=== PATIENT | male | born 1990 | race Caucasian/White ===

== ENCOUNTER 2023-12-07 03:18 | Inpatient (IN) | payer SELFPAY ==
[2023-12-07] VITALS (8 sets, daily range): BP systolic 138–188; BP diastolic 76–108; PULSE 63–95; RESP 14–20; TEMP 36.1–37.4; O2SAT 97–99; BMI 20.3
[2023-12-07 03:27] LABS: Glucose Point of Care 75 mg/dL (70-110)
[2023-12-07 03:51] LABS: Basophils # 0.1 10^3/uL (0.0-0.1); Basophils % 0.6 %; Eosinophils # 0.1 10^3/uL (0.0-0.8); Eosinophils % 0.7 %; Hematocrit 30.1 % (37-53); Lymphocytes # 1.2 10^3/uL (0.8-4.8); Lymphocytes % 10.8 %; Mean Corpuscular HGB Conc 32.2 g/dL (30-55); Mean Corpuscular Hemoglobin 27.6 pg (27-33); Mean Corpuscular Volume 85.5 fl (82-101); Mean Platelet Volume 10.6 fL (7.4-10.4); Monocytes # 0.5 10^3/uL (0.2-0.9); Monocytes % 4.9 %; Neutrophils # 8.78 10^3/uL (1.8-7.7); Neutrophils % 82.7 %; Nucleated Red Blood Cells % 0 %; Platelet Count 244 10^3/cmm (157-399); Red Blood Count 3.52 10^6/uL (3.85-5.65); Red Cell Distribution Width 13.3 % (12.1-15.1); White Blood Count 10.61 10^3/uL (3.29-11.43)
[2023-12-07 04:03] LABS: Ketone (Acetest) Serum Negative (Negative)
[2023-12-07 04:08] LABS: Alanine Aminotransferase 16 U/L (0-41); Albumin Level 4.4 g/dL (3.5-5.2); Alkaline Phosphatase 100 U/L (40-130); Anion Gap 19.4 (5-19); Aspartate Amino Transferase 25 U/L (0-40); Blood Urea Nitrogen 61 mg/dL (6-20); Carbon Dioxide 21 mmol/L (22-29); Chloride 105 mmol/L (98-107); Creatinine Clr Calc Pharmacy 11.1876; Globulin 3.1 g/dL (1.3-4.6); Glomerular Filtration Rate 6.2 mL/min (90-130); Glucose 57 mg/dL (65-115); Osmolality Calculated 307 mOsm/kg (285-295); Potassium 4.4 mmol/L (3.5-5.1); Sodium 141 mmol/L (136-145); Total Bilirubin 0.2 mg/dL (0.15-1.2); Total Protein 7.5 g/dL (6.6-8.7)
[2023-12-07 04:34] LABS: Glucose Point of Care 72 mg/dL (70-110)
[2023-12-07 05:06] LABS: Estmated Average Glucose 206; Hemoglobin A1C 8.8 % (4.0-6.0)
--- NOTE | 2023-12-07 05:28 | ED_ITS ---
HPI - General Adult 2 General: Stated complaint: Hypoglycemic Time Seen by Provider: 12/07/23 03:19 History of Present Illness: 33-year-old male presents emergency depa rtment via EMS personnel. EMS personnel state that the patient's significant other called them because he was unresponsive and she could not get him to respond to her verbally. EMS personnel state that upon arrival he was hypoglycemia with a blood glucose of 30 he has a type I diabetic. EMS personnel stated they provided him oral glucose and had an improvement of a blood glucose level of 50 at the time of transport. Upon arrival to the emergency department patient does look pale and ill- appearing he is responsive to verbal commands. The patient was provided IV access and an D10 was provided to the patient. As well as p.o. intake. The patient states he is new to the area and does not have a primary care provider. Associated symptoms: Deny chest pain, dyspnea or palpitations Review of Systems 2 General: Reports: 10 or more systems reviewed and unremarkable except in HPI and below Card: Denies: chest pain or palpitations Resp: Denies: dyspnea Endo: Reports: polyuria, polydipsia and tired all the time Physical Exam 2 Narrative: EXAM NARRATIVE: Constitutional: the patient appears well nourished and with normal development. Vital signs reviewed as documented. HENMT: Normocephalic, atraumatic. External ears normal appearance without drainage. Nose without drainage, normal appearance. Mucus membranes moist. Neck is supple, No jugular venous distension, trachea is midline, no appreciable carotid bruits. No lymphadenopathy. No meningeal signs. Flexion, extension and lateral rotation is without pain. Eyes: Pupils are equal, round, reactive to light and accommodation. No scleral icterus. Extra-ocular movement are intact. Thorax is symmetrical and with equal rise and fall with respirations. Resp: Lungs are clear to auscultation. No wheezes, rales, crackles or ronchi at present. Cardio: Regular rate and rhythm. Positive S1, S2. No appreciable murmurs, rubs or gallops. GI: Abdominal exam reveals normal bowel sounds to all quadrants. No organomegaly. No obvious palpable masses noted. No hepatomegally appreciated. Soft, non-tender to palpation. Extremity: Extremities are non-edematous and both femoral and pedal pulses are 2+ and equal bilaterally. Moves all extremities well, sensation in all extremities. Neuro: Alert and oriented x4, person, place, time and situation. Cranial nerves II through XII are grossly intact, there is no focal neurological deficits that I can appreciate at present. Sensation intact to all extremities. 2-point discrimination intact. Light touch intact to all extremities. Motor strength in the upper and lower extremities are equal and bilateral 5/5. Psych: Cooperative, calm, normal thought process, appropriate judgment. Skin: No lesions, rashes. No gross abnormalities noted. Back: Symmetrical, no obvious deformity, No CVA tenderness Course 2 Vital Signs: Vital signs: Vital Signs Temperature 98.3 F 12/07/23 03:18 Pulse Rate 92 12/07/23 03:18 Respiratory Rate 20 H 12/07/23 03:18 Blood Pressure 188/108 12/07/23 03:18 Pulse Oximetry 99 12/07/23 03:18 [facility] - General Adult Medical Decision Making Physical exam completed and documented I did repeat a goulx-[id number] glucose and the patient's blood glucose was 75. CBC was obtained and demonstrated hemoglobin 9.7. Patient's GFR is 6.2 creatinine 9.8 a BUN of 61 consistent with acute renal failure. I discussed the laboratory findings with the patient and he states he has never been advised that he had any difficulties with his kidneys. He states he still makes urine but is very concerned and states that the last time he was evaluated was 3 years ago but he is unaware of anyone ever telling him that he had kidney difficulties. Differential Diagnosis Uncontrolled diabetes, acute renal failure secondary to uncontrolled hypertension and diabetes mellitus. Diabetes mellitus with hypoglycemia Lab Data I reviewed the patient's lab results. 12/07/23 03:45 12/07/23 03:45 Laboratory Results WBC 10.61 10^3/uL (3.29-11.43) 12/07/23 03:45 RBC 3.52 10^6/uL (3.85-5.65) L 12/07/23 03:45 Hgb 9.70 g/dL (11.27-16.99) L 12/07/23 03:45 Hct 30.1 % (37-53) L 12/07/23 03:45 MCV 85.5 fl (82-101) 12/07/23 03:45 MCH 27.6 pg (27-33) 12/07/23 03:45 MCHC 32.2 g/dL (30-55) 12/07/23 03:45 RDW 13.3 % (12.1-15.1) 12/07/23 03:45 Plt Count 244 10^3/cmm (157-399) 12/07/23 03:45 MPV 10.6 fL (7.4-10.4) H 12/07/23 03:45 Neut % (Auto) 82.7 % 12/07/23 03:45 Lymph % (Auto) 10.8 % 12/07/23 03:45 [place] % (Auto) 4.9 % 12/07/23 03:45 Eos % (Auto) 0.7 % 12/07/23 03:45 Baso % (Auto) 0.6 % 12/07/23 03:45 Neut # (Auto) 8.78 10^3/uL (1.8-7.7) H 12/07/23 03:45 Lymph # (Auto) 1.2 10^3/uL (0.8-4.8) 12/07/23 03:45 [place] # (Auto) 0.5 10^3/uL (0.2-0.9) 12/07/23 03:45 Eos # (Auto) 0.1 10^3/uL (0.0-0.8) 12/07/23 03:45 Baso # (Auto) 0.1 10^3/uL (0.0-0.1) 12/07/23 03:45 Nucleated RBC % (auto) 0 % 12/07/23 03:45 Nucleated RBCs # 0.0 /100WBC 12/07/23 03:45 Sodium 141 mmol/L (136-145) 12/07/23 03:45 Potassium 4.4 mmol/L (3.5-5.1) 12/07/23 03:45 Chloride 105 mmol/L (98-107) 12/07/23 03:45 Carbon Dioxide 21 mmol/L (22-29) L 12/07/23 03:45 Anion Gap 19.4 (5-19) H 12/07/23 03:45 BUN 61 mg/dL (6-20) H 12/07/23 03:45 Creatinine 9.8 mg/dL (0.7-1.2) H* 12/07/23 03:45 GFR Calculation 6.2 mL/min (90-130) L 12/07/23 03:45 Glucose 57 mg/dL (65-115) L 12/07/23 03:45 POC Glucose 72 mg/dL (70-110) 12/07/23 04:31 Estimat Average Glucose 206 12/07/23 03:45 Hemoglobin A1c 8.8 % (4.0-6.0) H 12/07/23 03:45 Calculated Osmolality 307 mOsm/kg (285-295) H 12/07/23 03:45 Calcium 8.0 mg/dL (8.5-10.5) L 12/07/23 03:45 Total Bilirubin 0.2 mg/dL (0.15-1.2) 12/07/23 03:45 AST 25 U/L (0-40) 12/07/23 03:45 ALT 16 U/L (0-41) 12/07/23 03:45 Alkaline Phosphatase 100 U/L (40-130) 12/07/23 03:45 Total Protein 7.5 g/dL (6.6-8.7) 12/07/23 03:45 Albumin 4.4 g/dL (3.5-5.2) 12/07/23 03:45 Globulin 3.1 g/dL (1.3-4.6) 12/07/23 03:45 Serum Ketones Negative (Negative) 12/07/23 03:45 No radiology studies performed this visit Discharge Plan Discharge Patient Disposition: Admitted As Inpatient Admit Provider: Marine Pal Clinical Impression: Acute alteration in mental status, Diabetes mellitus due to underlying condition with hypoglycemia, Acute renal failure, Hypertension, uncontrolled Coding Level of Care Code ED [employer] Principal for Joaquin Jones
[2023-12-07] MEDS: hyDRALAzine 20 mg/mL INJ 1 mL 10 MG IVP (05:35)
--- NOTE | 2023-12-07 05:51 | PC.NURSE ---
Patient states he takes Novolin N 26 units at bedtime as well as sliding scale at home. Patient states he does not take any other home medications.
--- NOTE | 2023-12-07 06:11 | P.HP_ITS ---
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 Patient is denying chest pain, shortness of breath, fever, endorses for marijuana. No history of HIV or hepatitis Hemoglobin A1c is 8.8, anemia hemoglobin is 9, creatinine 9.8, potassium 4.4, anion gap 19.[address] abdomen pelvis without contrast and consulted nephro requested drug screen, urine analysis He is hypertensive I will give him amlodipine and hydralazine Review of Systems 2 Const: Denies: fever(s) Eyes: Denies: change in vision ENMT: Denies: throat pain Card: Denies: chest pain Resp: Denies: dyspnea GI: Denies: abdominal pain : Denies: flank pain Musc: Denies: neck pain Medications/Allergies Home Medications Medication Instructions Recorded Confirmed Last Taken Type Unable to Assess 12/07/23 12/07/23 Unknown History Allergies Allergy/AdvReac Type Severity Reaction Status Date / Time No Known Allergies Allergy Verified 12/07/23 05:50 PFSH Acute 2 PFSH: Medical History Type 1 diabetes Social History Substance/Drug Use: current Substance/Drug use frequency: few times a week Substance/Drug use type: Marijuana Vitals/I&O/Wt Last Vital Signs Temp 96.9 F L 12/07/23 06:04 Pulse 65 12/07/23 06:04 Resp 17 12/07/23 06:04 BP 164/83 12/07/23 06:04 Pulse Ox 98 12/07/23 06:04 O2 Del Method Room Air 12/07/23 05:41 Weight last 48 hrs Weight 74.253 kg Weight 68.039 kg Physical Exam 2 Narrative: Pale complexion GCS 15 Awake and alert Nonfocal neuroexam Hypertensive S1, S2 Currently on room air Pleasant cooperative Spouse at bedside No active emesis No encephalopathy Data 12/07/23 03:45 12/07/23 03:45 A&P Assessment and plan (1) Hypertension, uncontrolled: (2) Diabetes mellitus due to underlying condition with hypoglycemia: Qualifiers: Diabetes mellitus complication detail: without coma Diabetes mellitus skilled nursing insulin use: unspecified buttermaker continuous churn insulin use status Qualified Code(s): E08.649 - Diabetes mellitus due to underlying condition with hypoglycemia without coma (3) Acute renal failure: Qualifiers: Acute renal failure type: unspecified Qualified Code(s): N17.9 - Acute kidney failure, unspecified (4) Acute alteration in mental status: Plan Metabolic encephalopathy related to hypoglycemia: Resolved Hypoglycemia with underlying type 1 diabetes: Most likely happened due to worsening of kidney function without changing his Novolin sliding scale intensity Continue D10 for now until his blood sugar is between 140s and 180 mg/dL then we can switch normal saline Acute renal failure Will request CT abdomen pelvis without contrast Check urine drug screen, check urinalysis Consulted nephro Check HIV and hepatitis panel Check C3, C4 Diabetes related nephropathy? 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
--- NOTE | 2023-12-07 06:13 | USCV_ITS ---
Kaden Lozano Age: 33 Gender: M : 1990 Exam Date: 12/07/2023 08:35 Ordering Phys: Marine Pal MD Technologist: Antonio Hylton Exam Location: [facility] [place] Indication: chf BP: 164 / 83 HR: 62 Rhythm: Sinus Technical Quality: Adequate MEASUREMENTS (Male / Female) Normal Values 2D ECHO LVOT Diameter 2.2 cm LV Ejection Fraction MOD 2C 71.1 % LV Ejection Fraction 2C AL 71.7 % LA Diameter 3.1 cm RA Systolic Volume 4C AL 44.7 ml RA Systolic Volume 4C MOD 44.7 ml Aorta at Sinotubular Diameter 2.5 cm IVC Diameter 1.8 cm M-MODE LA Ao Ratio MM 1.1 MV E Point Septal Separation 0.8 cm AV Cusp Separation MM 1.9 cm DOPPLER AV Peak Velocity 157.0 cm/s AV Area Cont Eq vti 2.2 cm squared AV Area Cont Eq pk 2.2 cm squared MV Peak Velocity 396.0 cm/s MV Area PHT 3.2 cm squared Mitral E to A Ratio 1.3 TR Peak Velocity 265.0 cm/s TR Peak Gradient 28.1 mmHg TR Mean Velocity 188.0 cm/s TR Mean Gradient 16.3 mmHg TR Velocity Time Integral 66.4 cm PV Peak Velocity 109.5 cm/s RV Ejection Time 0.3 s FINDINGS Left Ventricle Left ventricle is normal in size. LV systolic function is normal with EF of 60 to 65%. No regional wall motion abnormalities are seen. Right Ventricle Normal in size and function Right Atrium Normal in size Left Atrium Dilated Mitral Valve Structurally normal mitral valve. Mild mitral regurgitation. Aortic Valve Structurally normal aortic valve. No significant stenosis or regurgitation. Tricuspid Valve Mild tricuspid regurgitation. Insufficient TR jet to calculate RVSP Pulmonic Valve Mild pulmonic regurgitation. Pericardium Normal Aorta Normal in size IVC Appears to be normal CONCLUSIONS LV systolic function is normal with EF of 60-65% Left atrial dilation Mild mitral regurgitation Mild tricuspid regurgitation. Mild pulmonic regurgitation. No comparison studies are available. Noe Onofre MD (Electronically Signed) Final Date: 07 December 2023 10:07 S
--- NOTE | 2023-12-07 06:17 | CTR_ITS ---
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 Radiation optimization: All CT scans at this facility use at least one of these dose optimization techniques: automated exposure control; mA and/or kV adjustment per patient size (includes targeted exams where dose is matched to clinical indication); or iterative reconstruction. COMPARISON: No relevant prior studies available. RADIATION DOSE METRICS: Total DLP (mGy-cm): 449.19 FINDINGS: Liver: Normal. No mass. Gallbladder and bile ducts: Normal. No calcified stones. No ductal dilation. Pancreas: Normal. No ductal dilation. Spleen: Normal. No splenomegaly. Adrenal glands: Normal. No mass. Kidneys and ureters: Normal. No hydronephrosis. Stomach and bowel: Unremarkable. No obstruction. No mucosal thickening. Appendix: No evidence of appendicitis. Intraperitoneal space: Unremarkable. No free air. No significant fluid collection. Vasculature: Unremarkable. No abdominal aortic aneurysm. Lymph nodes: Unremarkable. No enlarged lymph nodes. Urinary bladder: Unremarkable as visualized. Reproductive: Unremarkable as visualized. Bones/joints: Unremarkable. No acute fracture. Soft tissues: Unremarkable. CT/CT abdomen pelvis wo con [id number] IMPRESSION: No acute findings.
[2023-12-07 06:25] LABS: Glucose Point of Care 80 mg/dL (70-110)
[2023-12-07] MEDS: dextrose 10% 1,000 ML 100 ML IV (06:26)
[2023-12-07] MEDS: heparin 5,000 unit/mL INJ 1 mL 5000 UNIT SUBCUT ×2 (06:26→18:34)
[2023-12-07] MEDS: amlodipine 10 mg Tablet PO ×2 (06:26→09:36)
--- NOTE | 2023-12-07 06:39 | PC.NURSE ---
Dr. Pal ordered to run d10 IV fluids until patient's blood sugars are 140s. Ordered to switch to NS fluids when patient's blood sugars are 140s.
[2023-12-07] MEDS: acetaminophen 500 mg Tablet PO ×3 (06:42→19:33)
[2023-12-07 06:45] LABS: Complement C3 90 mg/dL (90-180)
[2023-12-07 06:59] LABS: HIV 1 & 2 Antibody Non-Reactive (Non-Reactiv); HIV 1 & 2 Antigen Non-Reactive (Non-Reactiv)
[2023-12-07 07:05] LABS: Thyroid Stimulating Hormone 4.03 uIU/mL (0.27-4.20); Vitamin B12 505 pg/mL (232-1245)
[2023-12-07 07:06] LABS: Hepatitis A Antibody IgM Non-Reactive (Nonreactive); Hepatitis B Core AB, Total Non-Reactive (Nonreactive); Hepatitis B Surface AB 15.6 (11.5-1000); Hepatitis B Surface Antigen Non-Reactive (Nonreactive); Hepatitis C Virus Antibody Non-Reactive (Nonreactive)
[2023-12-07] MEDS: ondansetron 2 mg/ML SDV 2 mL 4 MG IVP (07:15)
[2023-12-07 07:58] LABS: Glucose Point of Care 101 mg/dL (70-110)
[2023-12-07 08:12] LABS: Iron 89 ug/dL (59-158); Percent Saturation 24.5 % (20-50); Total Iron Binding Capacity 363 mcg/dl; Unsaturated Iron Binding 274 ug/dL (112-347)
[2023-12-07 08:41] LABS: Amphetamines Screen Urine Negative (Negative); Barbiturates Screen Urine Negative (Negative); Benzodiazepines Screen Urine Negative (Negative); Cocaine Screen Urine Negative (Negative); Opiate Screen Urine Negative (Negative); PCP Screen Urine Negative (Negative); THC Screen Urine Positive (Negative)
[2023-12-07 08:47] LABS: Creatinine Urine, Random 87 mg/dL (39-259)
[2023-12-07 09:00] LABS: Microalbum Creatinine Ratio Ur 2299 mg/dL (0-20); Microalbumin Random Urine 200 ug/dL (0-20)
[2023-12-07 09:05] LABS: Potassium, Radom Urine 35 mmol/L; Urine Random Chloride 57 mmol/L; Urine Random Sodium 58 mmol/L
[2023-12-07] MEDS: hyDRALAzine 10 mg Tablet PO ×3 (09:34→20:12)
[2023-12-07] MEDS: sennosides-docusate Tablet 1 TAB PO (09:34)
[2023-12-07 10:06] LABS: Glucose Point of Care 242 mg/dL (70-110)
[2023-12-07 11:10] LABS: Glucose Point of Care 286 mg/dL (70-110)
[2023-12-07 11:38] LABS: Eosinophil Urine No Eosinophils Seen
[2023-12-07 11:56] LABS: Erythrocyte Sedimentation Rate 29 mm/hr (0-10)
[2023-12-07] MEDS: insulin lispro 100 unit/1 mL SUBCUT ×2 (12:49→18:34)
[2023-12-07 13:59] LABS: Anion Gap 19.7 (5-19); Blood Urea Nitrogen 61 mg/dL (6-20); Calcium 7.9 mg/dL (8.5-10.5); Carbon Dioxide 16 mmol/L (22-29); Chloride 101 mmol/L (98-107); Creatinine Clr Calc Pharmacy 12.5925; Glomerular Filtration Rate 6.8 mL/min (90-130); Glucose 247 mg/dL (65-115); Osmolality Calculated 300 mOsm/kg (285-295); Potassium 4.7 mmol/L (3.5-5.1); Sodium 132 mmol/L (136-145)
--- NOTE | 2023-12-07 14:38 | PM.PN ---
Subjective Subjective: Patient was seen this morning, his family members at bedside,patient tells me that the last time he saw physician was over 7 years ago, when he was in [place], he had issues with his gallbladder, he had blood work done and they told him that he might have some kidney abnormality, he tells me he has not seen a physician in over 7 years, he has not had any recent illness, no fevers, no cough, no diarrhea, does report dehydration, no history of end-stage renal disease, no trauma no falls, currently is alert oriented x 3, following all commands no flank pain, no hematuria, patient clarifies that he has type 1 diabetes mellitus, his blood sugars have been little well-controlled, he has never had diabetic ketoacidosis never had a hospitalization for his diabetes Vitals/I&O/Wt Last Vital Signs Temp 97.7 F 12/07/23 11:24 Pulse 68 12/07/23 11:24 Resp 18 12/07/23 11:24 BP 162/76 12/07/23 11:24 Pulse Ox 97 12/07/23 11:24 O2 Del Method Room Air 12/07/23 11:24 12/06/23 12/07/23 12/07/23 22:59 06:59 14:59 Intake Total 1190 / 1190 Output Total 300 / 300 Balance 890 / 890 Weight last 48 hrs Weight 74.253 kg Weight 68.039 kg Physical Exam Const: COMMON NORMALS: no acute distress and patient oriented x3 Resp: COMMON NORMALS: normal respiratory effort, No retractions, No use of accessory muscles and clear to auscultation bilaterally AUSCULTATION: clear to auscultation bilaterally Cardio: COMMON NORMALS: regular rate, regular rhythm, S1 normal heart sound present and S2 normal heart sound present RATE: regular rate RHYTHM: regular rhythm HEART SOUNDS: S1 normal heart sound present and S2 normal heart sound present GI: COMMON NORMALS: Normal to inspection, nondistended, normoactive bowel sounds present and non-tender Extremity: COMMON NORMALS: no pedal edema Neuro: COMMON NORMALS: patient oriented x3 Psych: COMMON NORMALS: mental status grossly normal Data 12/07/23 03:45 12/07/23 13:27 A&P Assessment and plan (1) Hypertension, uncontrolled: (2) Diabetes mellitus due to underlying condition with hypoglycemia: Qualifiers: Diabetes mellitus complication detail: without coma Diabetes mellitus intermediate frame tender insulin use: unspecified residential insulin use status Qualified Code(s): E08.649 - Diabetes mellitus due to underlying condition with hypoglycemia without coma (3) Acute renal failure: Qualifiers: Acute renal failure type: unspecified Qualified Code(s): N17.9 - Acute kidney failure, unspecified (4) Acute alteration in mental status: (5) Type 1 diabetes: Plan Metabolic encephalopathy related to hypoglycemia: Resolved Hypoglycemia with underlying type 1 diabetes: Resolved, most likely happened due to worsening of kidney function without changing his Novolin sliding scale intensity Acute renal failure Will request CT abdomen pelvis without contrast, within normal limits Check urine drug screen, check urinalysis Consulted nephro Check HIV and hepatitis panel Check C3, C4 Diabetes related nephropathy? 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 He will need a PCP and endocrinology follow-up Patient requires hospitalization for acute renal failure, creatinine 9.2, requiring IV fluids, nephrology consultation, further workup, blood sugar monitoring Attestations Medical Necessity Statement*: Patient requires hospitalization for acute renal failure, creatinine 9.2, requiring IV fluids, nephrology consultation, further workup, blood sugar monitoring Diagnoses Hypertension, uncontrolled I10 Diabetes mellitus due to underlying condition with hypoglycemia E08.649 Diabetes mellitus complication detail: without coma Diabetes mellitus intermediate frame tender insulin use: unspecified intermediate frame tender insulin use status Acute renal failure N17.9 Acute renal failure type: unspecified Acute alteration in mental status R41.82 Type 1 diabetes E10.9
[2023-12-07 15:45] LABS: Creatine Phosphokinase 3486 U/L (39-308)
[2023-12-07 17:50] LABS: Glucose Point of Care 179 mg/dL (70-110)
--- NOTE | 2023-12-07 18:26 | P.CONIM_ITS ---
Providers/Reason For Consult 2 Consulting Physician/Specialty*: Elsa Cook DO, telenephrology Reason for Consult*: renal failure Requesting Physician: Marv Rodriguez MD Attending Physician: Marv Rodriguez MD History of Present Illness History of Present Illness Kaden Lozano is a 33 year old male presented to ER. called 911, unresponsive hypoglycemic event. Kaden states diabetes diagnosed at age 12. Last blood work was > 5 years ago. Denies knowledge of kidney disease, retinopathy or neuropathy states he feels fine, was checking BS at home, acceptable readings. uses insulin, takes execdrin occasionally for headache. Denies NSAID use Review of Systems 2 Card: Denies: chest pain Resp: Denies: dyspnea GI: Denies: diarrhea : Denies: difficulty urinating Musc: Denies: extremity swelling Skin/Breast: Denies: rash Medications/Allergies Home Medications Medication Instructions Recorded Confirmed Last Taken Type Unable to Assess 12/07/23 12/07/23 Unknown History Allergies Allergy/AdvReac Type Severity Reaction Status Date / Time No Known Allergies Allergy Verified 12/07/23 05:50 Current Medications Generic Name Dose Route Start Last Admin Trade Name Freq PRN Reason Stop Dose Admin Acetaminophen 500 mg 12/07/23 06:12 12/07/23 11:30 Acetaminophen 500 Mg Tablet PO 500 mg Q4H PRN Administration fever Amlodipine Besylate 10 mg 12/07/23 06:20 12/07/23 09:36 Amlodipine 10 Mg Tablet PO 10 mg DAILY NIKOLE Administration Heparin Sodium (Porcine) 5,000 unit 12/07/23 06:15 12/07/23 06:26 Heparin 5,000 Unit/Ml Inj 1 Ml SUBCUT 5,000 unit Q12H NIKOLE Administration Hydralazine HCl 10 mg 12/07/23 09:00 12/07/23 16:09 Hydralazine 10 Mg Tablet PO 10 mg TID NIKOLE Administration Sodium Chloride 1,000 mls @ 75 mls/hr 12/07/23 06:15 12/07/23 06:27 Sodium Chloride 0.9% IV Not Given .[id number] NIKOLE Insulin Human Lispro 0 unit 12/07/23 12:00 12/07/23 12:49 Insulin Lispro 100 Unit/1 Ml SUBCUT 6 unit TIDWM NIKOLE Administration Protocol Ondansetron HCl 4 mg 12/07/23 06:12 12/07/23 07:15 Ondansetron 2 Mg/Ml Sdv 2 Ml IVP 4 mg Q6H PRN Administration NAUSEA AND VOMITING Senna/Docusate Sodium 1 tab 12/07/23 09:00 12/07/23 09:34 Sennosides-Docusate Tablet PO 1 tab DAILY NIKOLE Administration PFSH Acute 2 PFSH: Medical History Type 1 diabetes Social History Substance/Drug Use: current Substance/Drug use frequency: few times a week Substance/Drug use type: Marijuana Vitals/I&O/Wt Last Vital Signs Temp 99.4 F 12/07/23 15:48 Pulse 68 12/07/23 15:48 Resp 14 12/07/23 15:48 BP 160/86 12/07/23 15:48 Pulse Ox 98 12/07/23 15:48 O2 Del Method Room Air 12/07/23 15:48 12/07/23 12/07/23 12/07/23 06:59 14:59 22:59 Intake Total 1190 / 1190 Output Total 300 / 300 Balance 890 / 890 Weight last 48 hrs Weight 74.253 kg Weight 68.039 kg Physical Exam 2 Const: COMMON NORMALS: no acute distress and alert Extremity: NARRATIVE EXTREMITY EXAM: no edema Neuro: SENSORIUM/ORIENTATION: Yes alert Data 12/07/23 03:45 12/07/23 13:27 Other Labs: urine albumin/Cr 229 mg/g CK 3486 Ca 7.9 albumin, LFTs normal A1C 8.8% complements normal CT Abd/Pel: Radiologist's impression: Adrenal glands: Normal. No mass. Kidneys and ureters: Normal. No hydronephrosis. Other data: seen via telemedicine. Verbal consent obtained A&P Assessment and plan (1) Diabetic nephropathy: Plan 1. Renal failure, duration unknown, probable diabetic nephropathy. Mild rhabdomyolysis, possible volume depletion. No acute indication for dialysis. 2. Hypertension 3. Anemia, adequate iron 4. Metabolic acidosis Recommend: IVF hydration, serologic workup, control BS, add sodium bicarbonate. agree with amlodipine and hydralazine. May recommend renal biopsy Consult Attestations 2 Medical Necessity Statement: see above Time Spent in Patient Care: Greater than 35 minutes Coding Level of Care Code Acute Code for Chg Fwd Diagnoses Diabetic nephropathy E11.21
[2023-12-07] MEDS: TRAMadol 50 mg Tablet 25 MG PO (19:34)
[2023-12-07 19:51] LABS: Ferritin 48 ng/mL (30-400); Magnesium 2.8 mg/dL (1.7-2.3); Phosphorus 5.6 mg/dL (2.5-4.5)
[2023-12-07 20:01] LABS: Parathyroid Hormone 473.4 pg/mL (15-65)
[2023-12-07 20:04] LABS: 25 Hydroxy Vitamin D 10 ng/mL (30-100)
[2023-12-07 20:08] LABS: Calcium 7.9 mg/dL (8.5-10.5)
[2023-12-07] MEDS: sodium bicarbonate 650 mg Tablet PO (20:12)
[2023-12-07] MEDS: sodium chloride 0.9% 1,000 ML 75 ML IV (20:13)
[2023-12-07 20:57] LABS: Glucose Point of Care 286 mg/dL (70-110)
[2023-12-08] VITALS (35 sets, daily range): BP systolic 135–173; BP diastolic 65–92; PULSE 66–100; RESP 3–20; TEMP 36.3–37.4; O2SAT 95–98
[2023-12-08] MEDS: ondansetron 2 mg/ML SDV 2 mL 4 MG IVP ×2 (01:07→19:14)
[2023-12-08 01:13] LABS: Creatinine Urine, Random 126 mg/dL (39-259); Urine Random Sodium 27 mmol/L
[2023-12-08 01:16] LABS: Urine Appearance Clear (CLEAR); Urine Color Yellow (Yellow); pH Urine 5 (5-7)
[2023-12-08 01:17] LABS: Amorphous Sediment Urine 1+ /hpf; Bacteria Urine 1+ /hpf; Bilirubin Urine Neg (Negative); Blood Urine 3+ (Negative); Coarse Granular Casts Urine 0-4 /lpf; Glucose Urine UA 4+ (Normal); Ketones Urine 1+ (Negative); Leukocyte Esterase Urine Negative (Negative); Mucus Urine TRACE /hpf; Nitrate Urine Negative (Negative); Protein Urine 3+ (Negative); Squamous Epithelial Cell Urine 0-4 /hpf (0-5); Urobilinogen Urine Neg (Negative); WBC Urine 0-4 /hpf (0-5)
[2023-12-08 03:06] LABS: Basophils % 0.2 %; Eosinophils % 0.2 %; Lymphocytes # 0.9 10^3/uL (0.8-4.8); Mean Corpuscular HGB Conc 30.7 g/dL (30-55); Mean Corpuscular Hemoglobin 27.5 pg (27-33); Mean Corpuscular Volume 89.6 fl (82-101); Mean Platelet Volume 11.9 fL (7.4-10.4); Monocytes # 0.3 10^3/uL (0.2-0.9); Monocytes % 2.1 %; Neutrophils # 13.39 10^3/uL (1.8-7.7); Nucleated Red Blood Cells % 0 %; Platelet Count 225 10^3/cmm (157-399); Red Blood Count 3.35 10^6/uL (3.85-5.65); Red Cell Distribution Width 13.4 % (12.1-15.1); White Blood Count 14.72 10^3/uL (3.29-11.43)
[2023-12-08 03:30] LABS: Blood Urea Nitrogen 76 mg/dL (6-20); Calcium 7.9 mg/dL (8.5-10.5); Carbon Dioxide 14 mmol/L (22-29); Chloride 96 mmol/L (98-107); Creatinine Clr Calc Pharmacy 11.2211; Glucose 461 mg/dL (65-115); Magnesium 2.6 mg/dL (1.7-2.3); Osmolality Calculated 317 mOsm/kg (285-295); Phosphorus 5.9 mg/dL (2.5-4.5); Sodium 132 mmol/L (136-145)
[2023-12-08 03:50] LABS: Creatine Phosphokinase 2472 U/L (39-308)
[2023-12-08 05:40] LABS: Glucose Point of Care 505 mg/dL (70-110)
[2023-12-08] MEDS: heparin 5,000 unit/mL INJ 1 mL 5000 UNIT SUBCUT ×2 (05:41→17:58)
[2023-12-08] MEDS: metoclopramide 5 mg/mL SDV 2 mL IVP ×2 (05:42→21:21)
[2023-12-08] MEDS: calcium gluconate 0.9% NaCL 1 GM/50 ML PREMIX IV (05:45)
[2023-12-08] MEDS: insulin regular-human 10 UNIT in SYRINGE 1 EACH IVP (05:46)
[2023-12-08 06:30] LABS: Glucose Point of Care 519 mg/dL (70-110)
[2023-12-08 06:55] LABS: Glucose Point of Care 503 mg/dL (70-110)
--- NOTE | 2023-12-08 07:53 | PC.NURSE ---
dr. turk notified of pts blood sugar. ordered 10units subq humalog and not sliding scale.
[2023-12-08 08:00] LABS: ABG PCO2 33.4 mmHg (35-45); ABG PH Result 7.23 (7.35-7.45); Arterial Blood Gas Hematocrit 26.6 % (42-52); Base Excess ABG -12.6 mmol/L (-2.0-2.0); Blood Gas Operator Identificat AMH; Blood Gas Sample Site Brachial, right; Blood Gas Sample Type Arterial; HCO3 ABG 13.9 mmol/L (22-26); Oxygen Device ROOM AIR; PO2 FiO2 Ratio Arterial Blood 0
[2023-12-08 08:00] LABS: Glucose Point of Care 469 mg/dL (70-110)
[2023-12-08 08:15] LABS: Ketone (Acetest) Serum Positive (Negative)
[2023-12-08] MEDS: insulin lispro 100 unit/1 mL 10 UNIT SUBCUT (08:30)
[2023-12-08] MEDS: sodium bicarbonate 8.4% 1 mEq/mL 50mL Syr 50 MEQ IVP (08:30)
[2023-12-08 09:14] LABS: Glucose Point of Care 449 mg/dL (70-110)
[2023-12-08] MEDS: hyDRALAzine 10 mg Tablet PO ×3 (09:20→21:06)
[2023-12-08 09:34] LABS: Anion Gap 30.2 (5-19); Calcium 8.3 mg/dL (8.5-10.5); Carbon Dioxide 14 mmol/L (22-29); Chloride 94 mmol/L (98-107); Creatinine Clr Calc Pharmacy 11.8589; Glomerular Filtration Rate 6.3 mL/min (90-130); Glucose 472 mg/dL (65-115); Lipase 53 U/L (13-60); Magnesium 2.8 mg/dL (1.7-2.3); Osmolality Calculated 322 mOsm/kg (285-295); Phosphorus 7.5 mg/dL (2.5-4.5); Potassium 5.2 mmol/L (3.5-5.1); Sodium 133 mmol/L (136-145)
[2023-12-08] MEDS: sodium chloride 0.9% 1,000 ML 150 ML IV (09:44)
[2023-12-08] MEDS: INSULIN REGULAR IN 0.9 % NACL 100 UNIT/100 ML BAG 7.5 UNIT IV (09:48)
[2023-12-08 09:58] LABS: Blood Urea Nitrogen 84 mg/dL (6-20)
[2023-12-08 10:13] LABS: Glucose Point of Care 383 mg/dL (70-110)
--- NOTE | 2023-12-08 11:00 | P.PN_ITS ---
Subjective 2 Subjective: reports he feels better Vitals/I&O/Wt Last Vital Signs Temp 98.0 F 12/08/23 07:45 Pulse 98 12/08/23 08:00 Resp 16 12/08/23 08:00 BP 158/75 12/08/23 07:45 Pulse Ox 95 12/08/23 08:00 O2 Del Method Room Air 12/08/23 08:00 12/07/23 12/08/23 12/08/23 22:59 06:59 14:59 Intake Total 240 / 1430 240.1 / 1670.1 1053.125 / 1053.125 Output Total 600 / 900 Balance 240 / 1130 -359.9 / 770.1 1053.125 / 1053.125 Weight last 48 hrs Weight 77.111 kg Weight 74.253 kg Weight 68.039 kg Physical Exam 2 Const: COMMON NORMALS: no acute distress and alert Neuro: SENSORIUM/ORIENTATION: Yes alert Data 12/08/23 02:13 12/08/23 09:02 Other Labs: Ca 8.3, phos 7.5, Mg 2.8 CK 2472 D 10, PTH 473, urine Na 27, uCr 126, FeNa < 1 ABG Interpretation 1: 12/08/23 07:48 ABG pH 7.23 L ABG pCO2 33.4 L ABG pO2 97.0 ABG HCO3 13.9 L ABG Base Excess -12.6 L My Interpretation: primary increased anion gap metabolic acidosis, primary respiratory acidosis (mild) Other data: seen via telemedicine with assistance of RN at bedside A&P Assessment and plan (1) Diabetic nephropathy: Plan 1. Renal failure, duration unknown, probable diabetic nephropathy. Mild rhabdomyolysis, CK improving, urine Na, FeNa consistent with volume depletion. 2. DKA, on insulin gtt, increased AG metabolic acidosis 3. Hypertension, continue amlodipine and hydralazine 4. Anemia, adequate iron 5. Hyperkalemia, mild Recommend: continue IVF hydration, insulin gtt, control BS, increase oral sodium bicarbonate. serologic workup pending. If no improvement, place tunneled IJ HD catheter Sunday to begin HD. Ideally should get renal biopsy, but not urgent. Attestations 2 Medical Necessity Statement*: see above Time Spent in Patient Care: 16 - 35 minutes Coding Level of Care Code Acute Code for Chg Fwd Diagnoses Diabetic nephropathy E11.21
[2023-12-08 11:06] LABS: Glucose Point of Care 334 mg/dL (70-110)
--- NOTE | 2023-12-08 11:42 | PM.PN ---
Subjective Subjective: Patient was seen this morning, he complains of nausea and vomiting throughout the night, blood sugars over 500, no fevers, no chills, no cough no abdominal pain, he tells me that he continues to urinate, discussed moving him potentially down to the ICU for diabetic ketoacidosis, ABG was ordered, ketones ordered, blood sugars over 500, repeat BMP, patient was found to be hyperkalemic, overnight he was given insulin, D50, calcium gluconate, this morning, his anion gap is 28 and blood sugar is over 500, moved to ICU, started insulin drip, for diabetic ketoacidosis, has metabolic acidosis, creatinines 10, Vitals/I&O/Wt Last Vital Signs Temp 98.0 F 12/08/23 07:45 Pulse 98 12/08/23 08:00 Resp 16 12/08/23 08:00 BP 158/75 12/08/23 07:45 Pulse Ox 95 12/08/23 08:00 O2 Del Method Room Air 12/08/23 08:00 12/07/23 12/08/23 12/08/23 22:59 06:59 14:59 Intake Total 240 / 1430 240.1 / 1670.1 1062.275 / 1062.275 Output Total 600 / 900 Balance 240 / 1130 -359.9 / 770.1 1062.275 / 1062.275 Weight last 48 hrs Weight 77.111 kg Weight 74.253 kg Weight 68.039 kg Physical Exam Const: COMMON NORMALS: no acute distress and patient oriented x3 Resp: COMMON NORMALS: normal respiratory effort, No retractions, No use of accessory muscles and clear to auscultation bilaterally AUSCULTATION: clear to auscultation bilaterally OTHER: Tachypnea Cardio: COMMON NORMALS: regular rate, regular rhythm, S1 normal heart sound present and S2 normal heart sound present RATE: regular rate RHYTHM: regular rhythm HEART SOUNDS: S1 normal heart sound present and S2 normal heart sound present GI: COMMON NORMALS: Normal to inspection, nondistended, normoactive bowel sounds present and non-tender Extremity: COMMON NORMALS: capillary refill normal and no pedal edema Neuro: COMMON NORMALS: patient oriented x3 Psych: COMMON NORMALS: mental status grossly normal Data 12/08/23 02:13 12/08/23 09:02 A&P Assessment and plan (1) Hypertension, uncontrolled: (2) Diabetes mellitus due to underlying condition with hypoglycemia: Qualifiers: Diabetes mellitus complication detail: without coma Diabetes mellitus intermediate manager insulin use: unspecified alf insulin use status Qualified Code(s): E08.649 - Diabetes mellitus due to underlying condition with hypoglycemia without coma (3) Acute renal failure: Qualifiers: Acute renal failure type: unspecified Qualified Code(s): N17.9 - Acute kidney failure, unspecified (4) Acute alteration in mental status: (5) Type 1 diabetes: (6) Diabetic ketoacidosis: (7) Metabolic acidosis: (8) Rhabdomyolysis: Plan Diabetic ketoacidosis, ketones positive, anion gap 30, bicarb 14, pH 7.24 Plan ? DKA protocol ? Start insulin drip, ? Continue normal saline at 150 cc, ? Monitor blood sugars hourly ?once blood sugar is less than 200, will start D5 half-normal saline -Supplement if potassium less than 4.5 hold drip ? BMP every 4 hours, monitor anion gap ? Once blood sugars are reasonable, anion gap has closed, switch to subcu insulin Metabolic encephalopathy related to hypoglycemia: Resolved Hypoglycemia with underlying type 1 diabetes: Resolved, most likely happened due to worsening of kidney function without changing his Novolin sliding scale intensity Acute renal failure, creatinine [address] abdomen pelvis without contrast, within normal limits Check urine drug screen, check urinalysis Consulted nephro Check HIV and hepatitis panel Check C3, C4 Diabetes related nephropathy? 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 He will need a PCP and endocrinology follow-up Patient was seen this morning, he complains of nausea and vomiting throughout the night, blood sugars over 500, no fevers, no chills, no cough no abdominal pain, he tells me that he continues to urinate, discussed moving him potentially down to the ICU for diabetic ketoacidosis, ABG was ordered, ketones ordered, blood sugars over 500, repeat BMP, patient was found to be hyperkalemic, overnight he was given insulin, D50, calcium gluconate, this morning, his anion gap is 28 and blood sugar is over 500, moved to ICU, started insulin drip, for diabetic ketoacidosis, has metabolic acidosis, creatinines 10, Attestations Medical Necessity Statement*: Patient requires hospitalization, inpatient, greater than 2 midnights for diabetic ketoacidosis,, acute renal failure Coding Level of Care Code Critical Care >/= 30 minutes Critical care time (in minutes): 45 The high probability of a clinically significant, sudden or life threatening deterioration, as referenced in this documentation, required my full and direct attention, intervention and personal management. The critical care time shown is in addition to time spent performing any reported separately billable procedures and includes the following: [x] Data and vital sign review and interpretation [x] Patient assessment, examination and intervention [x] Medication orders and management [x] Patient/Family updates as able [x] Care Coordination and Documentation. Diagnoses Hypertension, uncontrolled I10 Diabetes mellitus due to underlying condition with hypoglycemia E08.649 Diabetes mellitus complication detail: without coma Diabetes mellitus intermediate manager insulin use: unspecified alf insulin use status Acute renal failure N17.9 Acute renal failure type: unspecified Acute alteration in mental status R41.82 Type 1 diabetes E10.9 Diabetic ketoacidosis E11.10 Metabolic acidosis E87.20 Rhabdomyolysis M62.82
[2023-12-08 12:01] LABS: Glucose Point of Care 291 mg/dL (70-110)
[2023-12-08] MEDS: ergocalciferol (vitamin D2) 50,000 Unit Capsule 50000 UNIT PO (12:30)
[2023-12-08 12:38] LABS: Anion Gap 23.2 (5-19); Calcium 8.2 mg/dL (8.5-10.5); Carbon Dioxide 17 mmol/L (22-29); Chloride 97 mmol/L (98-107); Creatinine Clr Calc Pharmacy 11.8589; Glomerular Filtration Rate 6.3 mL/min (90-130); Glucose 273 mg/dL (65-115); Lactate (Lactic Acid level) 1.4 mmol/L (0.5-2.2); Osmolality Calculated 310 mOsm/kg (285-295); Potassium 4.2 mmol/L (3.5-5.1); Sodium 133 mmol/L (136-145)
[2023-12-08 13:00] LABS: Blood Urea Nitrogen 82 mg/dL (6-20)
[2023-12-08 13:11] LABS: Glucose Point of Care 189 mg/dL (70-110)
[2023-12-08] MEDS: D5-NS 0.45% + KCL 20 mEq 20 MEQ/1,000 ML BAG 100 MEQ IV (13:39)
[2023-12-08 14:05] LABS: Glucose Point of Care 152 mg/dL (70-110)
[2023-12-08 15:07] LABS: Glucose Point of Care 125 mg/dL (70-110)
[2023-12-08] MEDS: sodium bicarbonate 650 mg Tablet 1300 MG PO ×2 (15:22→21:06)
[2023-12-08 15:59] LABS: Anion Gap 19.4 (5-19); Calcium 8.3 mg/dL (8.5-10.5); Carbon Dioxide 19 mmol/L (22-29); Chloride 100 mmol/L (98-107); Creatinine Clr Calc Pharmacy 11.6193; Glomerular Filtration Rate 6.1 mL/min (90-130); Glucose 115 mg/dL (65-115); Lactate (Lactic Acid level) 0.7 mmol/L (0.5-2.2); Osmolality Calculated 304 mOsm/kg (285-295); Potassium 4.4 mmol/L (3.5-5.1); Sodium 134 mmol/L (136-145)
[2023-12-08 16:07] LABS: Blood Urea Nitrogen 83 mg/dL (6-20)
[2023-12-08 17:20] LABS: Glucose Point of Care 126 mg/dL (70-110)
[2023-12-08 17:20] LABS: Glucose Point of Care 131 mg/dL (70-110)
[2023-12-08 18:19] LABS: Glucose Point of Care 138 mg/dL (70-110)
[2023-12-08 19:19] LABS: Glucose Point of Care 165 mg/dL (70-110)
[2023-12-08 20:39] LABS: Anion Gap 21.7 (5-19); Calcium 8.2 mg/dL (8.5-10.5); Carbon Dioxide 18 mmol/L (22-29); Chloride 98 mmol/L (98-107); Creatinine Clr Calc Pharmacy 11.8589; Glomerular Filtration Rate 6.3 mL/min (90-130); Glucose 166 mg/dL (65-115); Osmolality Calculated 304 mOsm/kg (285-295); Potassium 4.7 mmol/L (3.5-5.1); Sodium 133 mmol/L (136-145)
[2023-12-08 20:40] LABS: Lactate (Lactic Acid level) 0.6 mmol/L (0.5-2.2)
[2023-12-08 20:42] LABS: Blood Urea Nitrogen 81 mg/dL (6-20)
[2023-12-08 20:56] LABS: Glucose Point of Care 241 mg/dL (70-110)
[2023-12-08] MEDS: sodium chloride 0.9% 1,000 ML 75 ML IV (21:06)
[2023-12-08] MEDS: insulin lispro 100 unit/1 mL SUBCUT (21:06)
[2023-12-08] MEDS: insulin glargine 100 units/1 mL 30 UNIT SUBCUT (21:09)
--- NOTE | 2023-12-08 21:17 | PC.NURSE ---
Addendum entered by Radha Irvin RN 12/08/23 22:05: Dr. Pal ordered to recheck blood pressure in 30 minutes. Addendum entered by Radha Ivrin RN 12/08/23 21:20: PRN Reglan administered. Blood pressure currently 167/89. Dr. Pal notified. Original Note: Patient vomited approximately 5 minutes after administration of PO Hydralazine and PO Sodium Bicarb.
[2023-12-08 23:24] LABS: Glucose Point of Care 224 mg/dL (70-110)
[2023-12-09] VITALS (49 sets, daily range): BP systolic 124–197; BP diastolic 61–113; PULSE 57–94; RESP 0–24; TEMP 36.8–37.3; O2SAT 96–100
[2023-12-09 02:10] LABS: Anion Gap 18.8 (5-19); Blood Urea Nitrogen 80 mg/dL (6-20); Calcium 8.2 mg/dL (8.5-10.5); Carbon Dioxide 21 mmol/L (22-29); Chloride 100 mmol/L (98-107); Creatinine Clr Calc Pharmacy 11.3893; Glucose 134 mg/dL (65-115); Osmolality Calculated 306 mOsm/kg (285-295); Potassium 4.8 mmol/L (3.5-5.1); Sodium 135 mmol/L (136-145)
--- NOTE | 2023-12-09 04:14 | PC.NURSE ---
Patient's blood sugar 73. 120 ml apple juice provided to patient.
[2023-12-09 04:20] LABS: Glucose Point of Care 73 mg/dL (70-110)
[2023-12-09 05:41] LABS: Basophils # 0.1 10^3/uL (0.0-0.1); Basophils % 0.4 %; Eosinophils # 0.1 10^3/uL (0.0-0.8); Eosinophils % 0.4 %; Hematocrit 25.6 % (37-53); Lymphocytes # 2.8 10^3/uL (0.8-4.8); Lymphocytes % 20.6 %; Mean Corpuscular HGB Conc 33.2 g/dL (30-55); Mean Corpuscular Hemoglobin 27.6 pg (27-33); Mean Corpuscular Volume 83.1 fl (82-101); Mean Platelet Volume 11.1 fL (7.4-10.4); Monocytes # 0.9 10^3/uL (0.2-0.9); Monocytes % 6.2 %; Neutrophils # 9.83 10^3/uL (1.8-7.7); Nucleated Red Blood Cells % 0 %; Platelet Count 240 10^3/cmm (157-399); Red Blood Count 3.08 10^6/uL (3.85-5.65); Red Cell Distribution Width 13.2 % (12.1-15.1); White Blood Count 13.66 10^3/uL (3.29-11.43)
[2023-12-09 06:07] LABS: Alanine Aminotransferase 23 U/L (0-41); Albumin Level 3.6 g/dL (3.5-5.2); Alkaline Phosphatase 87 U/L (40-130); Anion Gap 19.2 (5-19); Aspartate Amino Transferase 38 U/L (0-40); Blood Urea Nitrogen 78 mg/dL (6-20); Calcium 8.1 mg/dL (8.5-10.5); Carbon Dioxide 21 mmol/L (22-29); Chloride 102 mmol/L (98-107); Creatinine Clr Calc Pharmacy 11.6596; Globulin 2.3 g/dL (1.3-4.6); Glucose 64 mg/dL (65-115); Magnesium 2.5 mg/dL (1.7-2.3); Osmolality Calculated 307 mOsm/kg (285-295); Phosphorus 5.5 mg/dL (2.5-4.5); Potassium 4.2 mmol/L (3.5-5.1); Sodium 138 mmol/L (136-145); Total Bilirubin 0.2 mg/dL (0.15-1.2); Total Protein 5.9 g/dL (6.6-8.7)
[2023-12-09 06:08] LABS: Creatine Phosphokinase 1230 U/L (39-308)
--- NOTE | 2023-12-09 06:32 | PC.NURSE ---
Patient's blood sugar 48. Patient asymptomatic. Patient provided fruit cup, 2 rich crackers, and 120 ml apple juice.
[2023-12-09 06:33] LABS: Glucose Point of Care 48 mg/dL (70-110)
[2023-12-09 06:33] LABS: Glucose Point of Care 47 mg/dL (70-110)
--- NOTE | 2023-12-09 07:08 | P.PN_ITS ---
Subjective 2 Subjective: no complaints Vitals/I&O/Wt Last Vital Signs Temp 99.2 F 12/09/23 03:54 Pulse 63 12/09/23 06:00 Resp 16 12/09/23 06:00 BP 166/113 12/09/23 06:00 Pulse Ox 96 12/09/23 06:00 O2 Del Method Room Air 12/09/23 06:00 12/08/23 12/09/23 12/09/23 22:59 06:59 14:59 Intake Total 1547.5 / 2872.691 Output Total 950 / 1760 400 / 2160 Balance 597.5 / 1112.691 -400 / 712.691 Weight last 48 hrs Weight 79.742 kg Weight 77.111 kg Physical Exam 2 Const: COMMON NORMALS: no acute distress and alert Neuro: SENSORIUM/ORIENTATION: Yes alert Data 12/09/23 05:20 12/09/23 08:00 Other Labs: Ca 8.2, Phos 5.5, Mg 2.5, CK 1230 HepBsAg, Hep C Ab, HIV Ab neg Other data: seen via telemedicine with assistance of RN at bedside A&P Assessment and plan (1) Diabetic nephropathy: Plan 1. Renal failure, duration unknown, probable diabetic nephropathy. Mild rhabdomyolysis, CK improving, urine Na, FeNa consistent with volume depletion. 2. DKA, increased AG metabolic acidosis, improved 3. Hypertension, continue amlodipine and hydralazine 4. Anemia, adequate iron, begin procrit, start maintenance IV iron at dialysis Recommend:consult surgery for placement of tunneled IJ HD catheter 12/10/23. continue IVF hydration. GN serologic workup pending. Ideally should get renal biopsy, but not urgent. Indications for hemodialysis discussed in detail, risks and benefits. Kaden agrees to proceed. Also discussed likelihood renal function will not recover, need for AVF if staying on HD, peritoneal dialysis and renal transplant options. Orders entered for 2h HD tomorrow; 2K, no fluid removal. Discontinue sodium bicarbonate tomorrow. Attestations 2 Medical Necessity Statement*: see above Time Spent in Patient Care: 16 - 35 minutes Coding Level of Care Code Acute Code for [facility] Fwd Diagnoses Diabetic nephropathy E11.21
[2023-12-09 07:52] LABS: Glucose Point of Care 115 mg/dL (70-110)
[2023-12-09 08:22] LABS: Anion Gap 18.3 (5-19); Blood Urea Nitrogen 79 mg/dL (6-20); Calcium 8.2 mg/dL (8.5-10.5); Carbon Dioxide 22 mmol/L (22-29); Chloride 100 mmol/L (98-107); Glomerular Filtration Rate 6.1 mL/min (90-130); Glucose 103 mg/dL (65-115); Osmolality Calculated 306 mOsm/kg (285-295); Potassium 4.3 mmol/L (3.5-5.1); Sodium 136 mmol/L (136-145)
[2023-12-09 08:52] LABS: Creatinine Clr Calc Pharmacy 11.7773
[2023-12-09 09:40] LABS: Hepatitis B Surface AG NON-REACTIVE (NON-REACTIVE)
[2023-12-09] MEDS: sodium bicarbonate 650 mg Tablet 1300 MG PO (09:47)
[2023-12-09] MEDS: sennosides-docusate Tablet 1 TAB PO (09:48)
[2023-12-09] MEDS: hyDRALAzine 10 mg Tablet PO ×2 (09:48→14:39)
[2023-12-09] MEDS: heparin 5,000 unit/mL INJ 1 mL 5000 UNIT SUBCUT ×2 (09:48→20:34)
[2023-12-09] MEDS: sodium chloride 0.9% 1,000 ML 75 ML IV (10:39)
--- NOTE | 2023-12-09 11:28 | P.CONIM_ITS ---
Providers/Reason For Consult 2 Consulting Physician/Specialty*: General surgery Attending Physician: Marv Rodriguez MD History of Present Illness History of Present Illness Kaden Lozano is a 33 year old male Medications/Allergies Home Medications Medication Instructions Recorded Confirmed Last Taken Type Unable to Assess 12/07/23 12/07/23 Unknown History Allergies Allergy/AdvReac Type Severity Reaction Status Date / Time No Known Allergies Allergy Verified 12/07/23 05:50 Current Medications Generic Name Dose Route Start Last Admin Trade Name Freq PRN Reason Stop Dose Admin Acetaminophen 500 mg 12/07/23 06:12 12/07/23 19:33 Acetaminophen 500 Mg Tablet PO 500 mg Q4H PRN Administration fever Ergocalciferol 50,000 unit 12/08/23 12:00 12/08/23 12:30 Ergocalciferol (Vitamin D2) 50,000 Unit Capsule PO 50,000 unit Q7D NIKOLE Administration Heparin Sodium (Porcine) 5,000 unit 12/09/23 09:00 12/09/23 09:48 Heparin 5,000 Unit/Ml Inj 1 Ml SUBCUT 5,000 unit Q12H NIKOLE Administration Hydralazine HCl 10 mg 12/07/23 09:00 12/09/23 09:48 Hydralazine 10 Mg Tablet PO 10 mg TID NIKOLE Administration INSULIN REGULAR IN 0.9 % NACL 100 unit in 100 mls @ 0 mls/hr 12/08/23 08:45 12/08/23 14:11 Myxredlin 100 Unit/100 Ml Bag IV 0 unit/hr PROTOCOL NIKOLE 0 mls/hr Titration Protocol Per Protocol Sodium Chloride 1,000 mls @ 75 mls/hr 12/08/23 20:45 12/09/23 10:39 Sodium Chloride 0.9% IV 75 mls/hr .[id number] NIKOLE Administration Insulin Glargine 30 unit 12/08/23 21:00 12/08/23 21:09 Insulin Glargine 100 Units/1 Ml SUBCUT 30 unit BEDTIME NIKOLE Administration Insulin Human Lispro 0 unit 12/08/23 21:00 12/09/23 06:33 Insulin Lispro 100 Unit/1 Ml SUBCUT Not Given WM&BEDTIME NIKOLE Protocol Metoclopramide HCl 5 mg 12/08/23 08:39 12/08/23 21:21 Metoclopramide 5 Mg/Ml Sdv 2 Ml IVP 5 mg Q6H PRN Administration NAUSEA AND VOMITING Ondansetron HCl 4 mg 12/07/23 06:12 12/08/23 19:14 Ondansetron 2 Mg/Ml Sdv 2 Ml IVP 4 mg Q6H PRN Administration NAUSEA AND VOMITING Senna/Docusate Sodium 1 tab 12/07/23 09:00 12/09/23 09:48 Sennosides-Docusate Tablet PO 1 tab DAILY NIKOLE Administration Sodium Bicarbonate 1,300 mg 12/08/23 15:00 12/09/23 09:47 Sodium Bicarbonate 650 Mg Tablet PO 1,300 mg TID NIKOLE Administration Tramadol HCl 25 mg 12/07/23 18:17 12/07/23 19:34 Tramadol 50 Mg Tablet PO 25 mg Q4H PRN Administration MODERATE PAIN PFSH Acute 2 PFSH: Medical History Type 1 diabetes Social History Substance/Drug Use: current Substance/Drug use frequency: few times a week Substance/Drug use type: Marijuana Vitals/I&O/Wt Last Vital Signs Temp 99.2 F 12/09/23 03:54 Pulse 67 12/09/23 08:09 Resp 18 12/09/23 08:09 BP 166/113 12/09/23 08:00 Pulse Ox 99 12/09/23 08:09 O2 Del Method Room Air 12/09/23 08:09 12/08/23 12/09/23 12/09/23 22:59 06:59 14:59 Intake Total 1547.5 / 2872.691 1240 / 1240 Output Total 950 / 1760 400 / 2160 Balance 597.5 / 1112.691 -400 / 460.354 1534 / 1240 Weight last 48 hrs Weight 175 lb 12.8 oz Weight 170 lb Data 12/09/23 05:20 12/09/23 08:00 Coding Level of Care Code Acute Code for Chg Robert
[2023-12-09 11:30] LABS: Glucose Point of Care 121 mg/dL (70-110)
--- NOTE | 2023-12-09 11:33 | P.CONIM_ITS ---
Providers/Reason For Consult 2 Consulting Physician/Specialty*: General surgery Reason for Consult*: Need for dialysis catheter Attending Physician: Marv Rodriguez MD History of Present Illness History of Present Illness Kaden Lozano is a 33 year old male with type 1 diabetes mellitus who was admitted with acute kidney injury with creatinine levels of 9 and 10. Patient has been treated as inpatient with good clinical response about his creatinine has remained elevated to 9 And therefore after discussion with nephrology they have decided the patient would be a good candidate for long-term dialysis. Patient otherwise asymptomatic Review of Systems 2 General: Reports: 10 or more systems reviewed and unremarkable except in HPI and below Medications/Allergies Home Medications Medication Instructions Recorded Confirmed Last Taken Type Unable to Assess 12/07/23 12/07/23 Unknown History Allergies Allergy/AdvReac Type Severity Reaction Status Date / Time No Known Allergies Allergy Verified 12/07/23 05:50 Current Medications Generic Name Dose Route Start Last Admin Trade Name Freq PRN Reason Stop Dose Admin Acetaminophen 500 mg 12/07/23 06:12 12/07/23 19:33 Acetaminophen 500 Mg Tablet PO 500 mg Q4H PRN Administration fever Ergocalciferol 50,000 unit 12/08/23 12:00 12/08/23 12:30 Ergocalciferol (Vitamin D2) 50,000 Unit Capsule PO 50,000 unit Q7D NIKOLE Administration Heparin Sodium (Porcine) 5,000 unit 12/09/23 09:00 12/09/23 09:48 Heparin 5,000 Unit/Ml Inj 1 Ml SUBCUT 5,000 unit Q12H NIKOLE Administration Hydralazine HCl 10 mg 12/07/23 09:00 12/09/23 09:48 Hydralazine 10 Mg Tablet PO 10 mg TID NIKOLE Administration INSULIN REGULAR IN 0.9 % NACL 100 unit in 100 mls @ 0 mls/hr 12/08/23 08:45 12/08/23 14:11 Myxredlin 100 Unit/100 Ml Bag IV 0 unit/hr PROTOCOL NIKOLE 0 mls/hr Titration Protocol Per Protocol Sodium Chloride 1,000 mls @ 75 mls/hr 12/08/23 20:45 12/09/23 10:39 Sodium Chloride 0.9% IV 75 mls/hr .[id number] NIKOLE Administration Insulin Glargine 30 unit 12/08/23 21:00 12/08/23 21:09 Insulin Glargine 100 Units/1 Ml SUBCUT 30 unit BEDTIME NIKOLE Administration Insulin Human Lispro 0 unit 12/08/23 21:00 12/09/23 06:33 Insulin Lispro 100 Unit/1 Ml SUBCUT Not Given WM&BEDTIME NIKOLE Protocol Metoclopramide HCl 5 mg 12/08/23 08:39 12/08/23 21:21 Metoclopramide 5 Mg/Ml Sdv 2 Ml IVP 5 mg Q6H PRN Administration NAUSEA AND VOMITING Ondansetron HCl 4 mg 12/07/23 06:12 12/08/23 19:14 Ondansetron 2 Mg/Ml Sdv 2 Ml IVP 4 mg Q6H PRN Administration NAUSEA AND VOMITING Senna/Docusate Sodium 1 tab 12/07/23 09:00 12/09/23 09:48 Sennosides-Docusate Tablet PO 1 tab DAILY NIKOLE Administration Sodium Bicarbonate 1,300 mg 12/08/23 15:00 12/09/23 09:47 Sodium Bicarbonate 650 Mg Tablet PO 1,300 mg TID NIKOLE Administration Tramadol HCl 25 mg 12/07/23 18:17 12/07/23 19:34 Tramadol 50 Mg Tablet PO 25 mg Q4H PRN Administration MODERATE PAIN PFSH Acute 2 PFSH: Medical History Type 1 diabetes Social History Substance/Drug Use: current Substance/Drug use frequency: few times a week Substance/Drug use type: Marijuana Vitals/I&O/Wt Last Vital Signs Temp 99.2 F 12/09/23 03:54 Pulse 67 12/09/23 08:09 Resp 18 12/09/23 08:09 BP 166/113 12/09/23 08:00 Pulse Ox 99 12/09/23 08:09 O2 Del Method Room Air 12/09/23 08:09 12/08/23 12/09/23 12/09/23 22:59 06:59 14:59 Intake Total 1547.5 / 2872.691 1240 / 1240 Output Total 950 / 1760 400 / 2160 Balance 597.5 / 1112.691 -400 / 490.859 9530 / 1240 Weight last 48 hrs Weight 175 lb 12.8 oz Weight 170 lb Physical Exam 2 Narrative: General : Patient is well developed , no acute distress, oriented x3 Head : Normal cephalic, a-traumatic. Nose : Mucous membranes are without erythema. Lungs : Equal chest rise bilaterally, no use of accessory muscles, trachea is midline. CV : Rate and rhythm are normal. Abdomen : Soft, ND, NT, no g/r/m Extremities : No edema. Upper extremities are normal bilaterally. Back : non-tender to palpation, no CVA tenderness. Data 12/09/23 05:20 12/09/23 08:00 A&P Assessment and plan (1) Acute renal failure: After complete history, physical examination and review of all available clinical data the following is my assessment. Patient with significant acute kidney injury that has failed to improve despite medical treatment. Nephrology has indicated patient will benefit from long-term dialysis. I have been asked to place a tunneled dialysis catheter. After a discussion of all risk and benefits with the patient including the risk of pneumothorax, injury to the blood vessels of the neck chest and heart requiring surgical intervention and transfer to higher level of care, cannulation of the carotid artery, catheter malfunction, catheter infection, catheter thrombosis. The patient showed understanding and wished to proceed with catheter placement. Plan is for placement of right IJ tunneled dialysis catheter tomorrow morning. Patient will be made n.p.o. after midnight. Qualifiers: Acute renal failure type: unspecified Qualified Code(s): N17.9 - Acute kidney failure, unspecified Coding Level of Care Code 33262 Diagnoses Acute renal failure N17.9 Acute renal failure type: unspecified
[2023-12-09] MEDS: epoetin alfa 20,000 unit/mL MDV (ESRD) 20000 UNIT SUBCUT (12:13)
[2023-12-09 12:15] LABS: Magnesium 2.6 mg/dL (1.7-2.3); Phosphorus 5.1 mg/dL (2.5-4.5)
[2023-12-09 12:17] LABS: Anion Gap 15.7 (5-19); Calcium 8.4 mg/dL (8.5-10.5); Carbon Dioxide 23 mmol/L (22-29); Chloride 103 mmol/L (98-107); Glucose 101 mg/dL (65-115); Osmolality Calculated 309 mOsm/kg (285-295); Potassium 4.7 mmol/L (3.5-5.1); Sodium 137 mmol/L (136-145)
[2023-12-09 12:23] LABS: Blood Urea Nitrogen 81 mg/dL (6-20)
[2023-12-09 12:24] LABS: Creatinine Clr Calc Pharmacy 11.5441
--- NOTE | 2023-12-09 14:20 | PM.PN ---
Subjective Subjective: Patient was seen this morning, is at bedside, he is resting comfortably, off insulin drip, on subcu insulin, no nausea, no vomiting, we discussed his creatinine, discussion with nephrology, recommendation of tunneled dialysis catheter placement, discussed risk and benefits, he voiced understanding, all questions answered, agreed to proceed spoke to nephrology about tunneled dialysis catheter placement planned on tomorrow tunneled dialysis catheter placement, spoke to general surgery consulted for pacemaker placement, spoke to general surgery Vitals/I&O/Wt Last Vital Signs Temp 99.2 F 12/09/23 03:54 Pulse 74 12/09/23 12:00 Resp 16 12/09/23 12:00 BP 166/113 12/09/23 12:00 Pulse Ox 100 12/09/23 12:00 O2 Del Method Room Air 12/09/23 08:09 12/08/23 12/09/23 12/09/23 22:59 06:59 14:59 Intake Total 1547.5 / 2872.691 1240 / 1240 Output Total 950 / 1760 400 / 2160 Balance 597.5 / 1112.691 -400 / 660.015 9332 / 1240 Weight last 48 hrs Weight 79.742 kg Weight 77.111 kg Physical Exam Const: COMMON NORMALS: no acute distress and patient oriented x3 Resp: COMMON NORMALS: normal respiratory effort, No retractions, No use of accessory muscles and clear to auscultation bilaterally AUSCULTATION: clear to auscultation bilaterally Cardio: COMMON NORMALS: regular rate, regular rhythm, S1 normal heart sound present and S2 normal heart sound present RATE: regular rate RHYTHM: regular rhythm HEART SOUNDS: S1 normal heart sound present and S2 normal heart sound present GI: COMMON NORMALS: Normal to inspection, nondistended, normoactive bowel sounds present and non-tender Extremity: COMMON NORMALS: no pedal edema Neuro: COMMON NORMALS: patient oriented x3 Psych: COMMON NORMALS: mental status grossly normal Data 12/09/23 05:20 12/09/23 11:31 A&P Assessment and plan (1) Hypertension, uncontrolled: (2) Diabetes mellitus due to underlying condition with hypoglycemia: Qualifiers: Diabetes mellitus complication detail: without coma Diabetes mellitus terminal press operator insulin use: unspecified longterm insulin use status Qualified Code(s): E08.649 - Diabetes mellitus due to underlying condition with hypoglycemia without coma (3) Acute renal failure: Qualifiers: Acute renal failure type: unspecified Qualified Code(s): N17.9 - Acute kidney failure, unspecified (4) Acute alteration in mental status: (5) Type 1 diabetes: (6) Diabetic ketoacidosis: (7) Metabolic acidosis: (8) Rhabdomyolysis: Plan Diabetic ketoacidosis, ketones positive, anion gap 30, bicarb 14, pH 7.24 Plan ? Resolved, ?Continue insulin sliding scale ? Lantus 30 units at bedtime Metabolic encephalopathy related to hypoglycemia: Resolved Hypoglycemia with underlying type 1 diabetes: Resolved, most likely happened due to worsening of kidney function without changing his Novolin sliding scale intensity Acute renal failure, creatinine [address] abdomen pelvis without contrast, within normal limits Check urine drug screen, check urinalysis Consulted nephro Check HIV and hepatitis panel Check C3, C4 Diabetes related nephropathy? N.p.o. 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10 Metabolic acidosis E87.20 Rhabdomyolysis M62.82
[2023-12-09] MEDS: sodium bicarbonate 650 mg Tablet PO ×2 (14:39→20:33)
--- NOTE | 2023-12-09 15:04 | PC.NURSE ---
Report received from Rafia Lee RN. BP 197/106. [address] Rodriguez notified, new order for Norvasc 10mg daily to start now.
[2023-12-09] MEDS: amlodipine 10 mg Tablet PO (15:11)
[2023-12-09] MEDS: cloNIDine 0.1 mg Tablet 0.100000000000000006 MG PO (16:14)
[2023-12-09 17:21] LABS: Glucose Point of Care 80 mg/dL (70-110)
[2023-12-09] MEDS: hyDRALAzine 25 mg Tablet PO (18:43)
[2023-12-09 20:31] LABS: Glucose Point of Care 152 mg/dL (70-110)
[2023-12-09] MEDS: insulin glargine 100 units/1 mL 30 UNIT SUBCUT (20:33)
[2023-12-09 20:40] LABS: Magnesium 2.5 mg/dL (1.7-2.3); Phosphorus 4.6 mg/dL (2.5-4.5)
[2023-12-10] VITALS (30 sets, daily range): BP systolic 110–173; BP diastolic 55–94; PULSE 56–79; RESP 3–27; TEMP 36.6–36.9; O2SAT 96–100
[2023-12-10] MEDS: hyDRALAzine 25 mg Tablet PO ×3 (00:02→12:42)
[2023-12-10] MEDS: dextrose 10% 250 ML 1000 ML IV (02:52)
[2023-12-10 03:01] LABS: Glucose Point of Care 65 mg/dL (70-110)
[2023-12-10 03:01] LABS: Glucose Point of Care 40 mg/dL (70-110)
[2023-12-10 03:35] LABS: Glucose Point of Care 140 mg/dL (70-110)
[2023-12-10 05:53] LABS: Basophils # 0.1 10^3/uL (0.0-0.1); Eosinophils # 0.1 10^3/uL (0.0-0.8); Eosinophils % 1.8 %; Hematocrit 25.3 % (37-53); Lymphocytes # 1.9 10^3/uL (0.8-4.8); Lymphocytes % 26.9 %; Mean Corpuscular HGB Conc 32.8 g/dL (30-55); Mean Corpuscular Hemoglobin 27.9 pg (27-33); Mean Corpuscular Volume 84.9 fl (82-101); Mean Platelet Volume 11.1 fL (7.4-10.4); Monocytes # 0.6 10^3/uL (0.2-0.9); Monocytes % 8.7 %; Neutrophils # 4.42 10^3/uL (1.8-7.7); Neutrophils % 61.3 %; Nucleated Red Blood Cells % 0 %; Platelet Count 187 10^3/cmm (157-399); Red Blood Count 2.98 10^6/uL (3.85-5.65); Red Cell Distribution Width 13.2 % (12.1-15.1); White Blood Count 7.21 10^3/uL (3.29-11.43)
[2023-12-10 06:16] LABS: Alanine Aminotransferase 23 U/L (0-41); Albumin Level 3.5 g/dL (3.5-5.2); Alkaline Phosphatase 81 U/L (40-130); Anion Gap 17.1 (5-19); Aspartate Amino Transferase 38 U/L (0-40); Blood Urea Nitrogen 74 mg/dL (6-20); Calcium 8.2 mg/dL (8.5-10.5); Carbon Dioxide 23 mmol/L (22-29); Chloride 105 mmol/L (98-107); Creatinine Clr Calc Pharmacy 11.4309; Globulin 2.1 g/dL (1.3-4.6); Glomerular Filtration Rate 5.9 mL/min (90-130); Glucose 86 mg/dL (65-115); Magnesium 2.5 mg/dL (1.7-2.3); Osmolality Calculated 313 mOsm/kg (285-295); Phosphorus 5.1 mg/dL (2.5-4.5); Potassium 4.1 mmol/L (3.5-5.1); Sodium 141 mmol/L (136-145); Total Bilirubin 0.2 mg/dL (0.15-1.2); Total Protein 5.6 g/dL (6.6-8.7)
[2023-12-10 06:19] LABS: Creatine Phosphokinase 1205 U/L (39-308)
[2023-12-10 10:11] LABS: Glucose Point of Care 97 mg/dL (70-110)
--- NOTE | 2023-12-10 10:11 | PM.PN ---
Subjective Subjective: Denies any complaints Medications: Reviewed: Yes Vitals/I&O/Wt Last Vital Signs Temp 98.5 F 12/10/23 04:00 Pulse 56 L 12/10/23 06:00 Resp 26 H 12/10/23 04:00 BP 145/87 12/10/23 04:00 Pulse Ox 98 12/10/23 04:00 O2 Del Method Room Air 12/10/23 04:00 12/09/23 12/10/23 12/10/23 22:59 06:59 14:59 Intake Total 1064.809 / 2424.809 250 / 2674.809 Output Total 800 / 1150 750 / 1900 Balance 264.809 / 1274.809 -500 / 774.809 Weight last 48 hrs Weight 78.335 kg Weight 79.742 kg Physical Exam Const: COMMON NORMALS: no acute distress and alert Neuro: SENSORIUM/ORIENTATION: Yes alert Data 12/10/23 05:25 12/10/23 05:25 A&P Assessment and plan (1) Diabetic nephropathy: Plan 1. Renal failure, duration unknown, probable diabetic nephropathy. Mild rhabdomyolysis, CK improving, urine Na, FeNa consistent with volume depletion. 2. DKA, increased AG metabolic acidosis, improved 3. Hypertension, continue amlodipine and hydralazine 4. Anemia, adequate iron, begin procrit, start maintenance IV iron at dialysis Recommend:plan for placement of tunneled IJ HD catheter today . continue IVF hydration. GN serologic workup pending. Ideally should get renal biopsy, but not urgent. Indications for hemodialysis discussed in detail, risks and benefits. Kaden agrees to proceed. Also discussed likelihood renal function will not recover, need for AVF if staying on HD, peritoneal dialysis and renal transplant options. plan for 2h HD ; 2K, no fluid removal. Discontinue sodium bicarbonate today. Attestations Medical Necessity Statement*: per [facility] Coding Level of Care Code Acute Code for [facility] Diagnoses Diabetic nephropathy E11.21
[2023-12-10 10:15] LABS: Anti-streptolysin O 163 IU/mL (<200)
[2023-12-10] MEDS: sodium bicarbonate 650 mg Tablet PO ×3 (10:49→20:43)
[2023-12-10] MEDS: cloNIDine 0.1 mg Tablet 0.100000000000000006 MG PO ×2 (10:49→17:01)
[2023-12-10] MEDS: amlodipine 10 mg Tablet PO (10:49)
--- NOTE | 2023-12-10 12:07 | W.PM.OPSUD ---
Surgery/Procedure H&P Update DATE OF PROCEDURE: December 10, 2023 DATE H&P PERFORMED: 12/09/23 H&P UPDATE INFORMATION: I have reviewed H&P completed within last 30 days, I have examined patient prior to procedure, No changes to prior documentation and H&P is in [facility] EMR on date indicated PLANNED PROCEDURE: Operation Date: 12/10/23 14:40 Proposed Procedures p Dialysis Catheter Insertion(Not Applicable) - Yonathan Ramos MD
--- NOTE | 2023-12-10 12:38 | P.ANESASSM_ITS ---
Pre-Anesthetic Assessment Height/Weight: Height 1.83 m Weight 78.335 kg Temp Pulse Resp BP Pulse Ox O2 Del Method 98.5 F 69 27 H 145/90 100 Room Air 12/10/23 04:00 12/10/23 12:00 12/10/23 12:00 12/10/23 12:00 12/10/23 12:00 12/10/23 04:00 Operation Date: 12/10/23 14:40 Proposed Procedures p Dialysis Catheter Insertion(Not Applicable) - Yonathan Ramos MD Familial anesthetic complications: None Was Beta Isela taken within 24 hours: N/A Was Clonidine taken within 24 hours: N/A Last intake: > 8 hrs Social No alcohol and No tobacco Exam alert, oriented x 3, clear to auscultation bilaterally and regular rate & rhythm Airway Mallampati: Class I Dentition: chipped and other (poor dentition) CV/HEM Anemia Chronic Renal Insufficiency peritoneal dialysis Metabolic Diabetes Mellitus (DKA) Anesthetic Plan ASA status: 4 Anesthesia: MAC Risk of > 500 ml blood loss (7ml/kg in children): No Medications/Allergies Home Medications Medication Instructions Recorded Confirmed Last Taken Type Unable to Assess 12/07/23 12/07/23 Unknown History Allergies Allergy/AdvReac Type Severity Reaction Status Date / Time No Known Allergies Allergy Verified 12/07/23 05:50 Current Medications Generic Name Dose Route Start Last Admin Trade Name Freq PRN Reason Stop Dose Admin Acetaminophen 500 mg 12/07/23 06:12 12/07/23 19:33 Acetaminophen 500 Mg Tablet PO 500 mg Q4H PRN Administration fever Amlodipine Besylate 10 mg 12/09/23 15:07 12/10/23 10:49 Amlodipine 10 Mg Tablet PO 10 mg DAILY NIKOLE Administration Clonidine HCl 0.1 mg 12/09/23 16:15 12/10/23 10:49 Clonidine 0.1 Mg Tablet PO 0.1 mg BID NIKOLE Administration Ergocalciferol 50,000 unit 12/08/23 12:00 12/08/23 12:30 Ergocalciferol (Vitamin D2) 50,000 Unit Capsule PO 50,000 unit Q7D NIKOLE Administration Heparin Sodium (Porcine) 5,000 unit 12/09/23 09:00 12/10/23 10:44 Heparin 5,000 Unit/Ml Inj 1 Ml SUBCUT Not Given Q12H NIKOLE Hydralazine HCl 25 mg 12/09/23 18:45 12/10/23 06:31 Hydralazine 25 Mg Tablet PO 25 mg Q6H NIKOLE Administration Dextrose 250 mls @ 1,000 mls/hr 12/08/23 08:37 12/10/23 03:11 D10w IV Infused PRN PRN Infusion Adult DKA Hypoglycemia Nursing Protocol Protocol Insulin Glargine 30 unit 12/08/23 21:00 12/09/23 20:33 Insulin Glargine 100 Units/1 Ml SUBCUT 30 unit BEDTIME NIKOLE Administration Insulin Human Lispro 0 unit 12/08/23 21:00 12/10/23 10:30 Insulin Lispro 100 Unit/1 Ml SUBCUT Not Given WM&BEDTIME NIKOLE Protocol Metoclopramide HCl 5 mg 12/08/23 08:39 12/08/23 21:21 Metoclopramide 5 Mg/Ml Sdv 2 Ml IVP 5 mg Q6H PRN Administration NAUSEA AND VOMITING Ondansetron HCl 4 mg 12/07/23 06:12 12/08/23 19:14 Ondansetron 2 Mg/Ml Sdv 2 Ml IVP 4 mg Q6H PRN Administration NAUSEA AND VOMITING Senna/Docusate Sodium 1 tab 12/07/23 09:00 12/10/23 10:47 Sennosides-Docusate Tablet PO Not Given DAILY NIKOLE Sodium Bicarbonate 650 mg 12/09/23 15:00 12/10/23 10:49 Sodium Bicarbonate 650 Mg Tablet PO 650 mg TID NIKOLE Administration Tramadol HCl 25 mg 12/07/23 18:17 12/07/23 19:34 Tramadol 50 Mg Tablet PO 25 mg Q4H PRN Administration MODERATE PAIN PFSH Anesthesia Medical History Type 1 diabetes Social History Substance/Drug Use: current Substance/Drug use frequency: few times a week Substance/Drug use type: Marijuana Data Anesthesia 12/10/23 05:25 12/10/23 05:25 Short CBC 12/09/23 12/10/23 Range/Units 05:20 05:25 WBC 13.66 H 7.21 (3.29-11.43) 10^3/uL Hgb 8.50 L 8.30 L (11.27-16.99) g/dL Hct 25.6 L 25.3 L (37-53) % MCV 83.1 84.9 (82-101) fl Plt Count 240 187 (157-399) 10^3/cmm Neut % (Auto) 72.0 61.3 % Neut # (Auto) 9.83 H 4.42 (1.8-7.7) 10^3/uL BMP 12/08/23 12/08/23 12/08/23 11:58 15:37 20:16 Sodium 133 L 134 L 133 L Potassium 4.2 4.4 4.7 Chloride 97 L 100 98 Carbon Dioxide 17 L 19 L 18 L BUN 82 H* 83 H* 81 H Creatinine 9.7 H* 9.9 H* 9.7 H* Glucose 273 H 115 166 H Calcium 8.2 L 8.3 L 8.2 L 12/09/23 12/09/23 12/09/23 00:55 05:20 08:00 Sodium 135 L 138 136 Potassium 4.8 4.2 4.3 Chloride 100 102 100 Carbon Dioxide 21 L 21 L 22 BUN 80 H 78 H 79 H Creatinine 10.1 H* 10.0 H* 9.9 H* Glucose 134 H 64 L 103 Calcium 8.2 L 8.1 L 8.2 L 12/09/23 12/10/23 11:31 05:25 Sodium 137 141 Potassium 4.7 4.1 Chloride 103 105 Carbon Dioxide 23 23 BUN 81 H 74 H Creatinine 10.1 H* 10.2 H* Glucose 101 86 Calcium 8.4 L 8.2 L Cardiac Enzymes 12/09/23 12/10/23 Range/Units 05:20 05:25 Creatine Kinase 1230 H* 1205 H* (39-308) U/L Liver Function 12/09/23 12/10/23 Range/Units 05:20 05:25 Total Bilirubin 0.2 0.2 (0.15-1.2) mg/dL AST 38 38 (0-40) U/L ALT 23 23 (0-41) U/L Alkaline Phosphatase 87 81 (40-130) U/L Albumin 3.6 3.5 (3.5-5.2) g/dL Cardiac Studies: 2 Echocardiogram 12/07/23
[2023-12-10 12:46] LABS: Glucose Point of Care 96 mg/dL (70-110)
--- NOTE | 2023-12-10 13:55 | SC_ITS ---
WS: [id number] INTRAOPERATIVE TECHNIQUE: 2 Spot fluoroscopic images for intraoperative purposes. FLUOROSCOPY TIME: 80.6 seconds CLINICAL INFORMATION: intraoperative COMPARISON: None. FINDINGS: Dual-lumen RIGHT central venous catheter with tip in the distal SVC. No visualized pneumothorax IMPRESSION: Images obtained for intraoperative purposes.
--- NOTE | 2023-12-10 14:12 | PM.PN ---
Subjective Subjective: Patient was seen this morning, denies any fevers, no chills, He did have an episode of hypoglycemia overnight, a bit anxious about dialysis catheter placement, Vitals/I&O/Wt Last Vital Signs Temp 98.5 F 12/10/23 04:00 Pulse 69 12/10/23 12:00 Resp 27 H 12/10/23 12:00 BP 145/90 12/10/23 12:00 Pulse Ox 100 12/10/23 12:00 O2 Del Method Room Air 12/10/23 04:00 12/09/23 12/10/23 12/10/23 22:59 06:59 14:59 Intake Total 1064.809 / 2424.809 250 / 2674.809 Output Total 800 / 1150 750 / 1900 Balance 264.809 / 1274.809 -500 / 774.809 Weight last 48 hrs Weight 78.335 kg Weight 79.742 kg Physical Exam Const: COMMON NORMALS: no acute distress and patient oriented x3 Resp: COMMON NORMALS: normal respiratory effort, No retractions, No use of accessory muscles and clear to auscultation bilaterally AUSCULTATION: clear to auscultation bilaterally Cardio: COMMON NORMALS: regular rate, regular rhythm, S1 normal heart sound present and S2 normal heart sound present RATE: regular rate RHYTHM: regular rhythm HEART SOUNDS: S1 normal heart sound present and S2 normal heart sound present GI: COMMON NORMALS: Normal to inspection, nondistended, normoactive bowel sounds present and non-tender Extremity: COMMON NORMALS: no pedal edema Neuro: COMMON NORMALS: patient oriented x3 Psych: COMMON NORMALS: mental status grossly normal Data 12/10/23 05:25 12/10/23 05:25 A&P Assessment and plan (1) Hypertension, uncontrolled: (2) Diabetes mellitus due to underlying condition with hypoglycemia: Qualifiers: Diabetes mellitus complication detail: without coma Diabetes mellitus exterminator helper termite insulin use: unspecified exterminator helper termite insulin use status Qualified Code(s): E08.649 - Diabetes mellitus due to underlying condition with hypoglycemia without coma (3) Acute renal failure: Qualifiers: Acute renal failure type: unspecified Qualified Code(s): N17.9 - Acute kidney failure, unspecified (4) Acute alteration in mental status: (5) Type 1 diabetes: (6) Diabetic ketoacidosis: (7) Metabolic acidosis: (8) Rhabdomyolysis: Plan Diabetic ketoacidosis, ketones positive, anion gap 30, bicarb 14, pH 7.24 Plan ? Resolved, ?Continue insulin sliding scale ? Lantus 30 units at bedtime Metabolic encephalopathy related to hypoglycemia: Resolved Hypoglycemia with underlying type 1 diabetes: Resolved, most likely happened due to worsening of kidney function without changing his Novolin sliding scale intensity Acute renal failure, creatinine [address] abdomen pelvis without contrast, within normal limits Check urine drug screen, check urinalysis Consulted nephro Check HIV and hepatitis panel Check C3, C4 Diabetes related nephropathy? N.p.o. at midnight, for tunneled dialysis catheter placement, dialysis thereafter Rhabdomyolysis, IV fluids Anemia of chronic disease Hemoglobin 9 Patient is not hypotensive or tachycardic No signs of active bleed Full code Consistent carb diet Plan for today dialysis catheter placement, /Catheter placement, arranging outpatient dialysis Attestations Medical Necessity Statement*: Patient requires hospitalization for dialysis catheter placement,DIALYSIS Diagnoses Hypertension, uncontrolled I10 Diabetes mellitus due to underlying condition with hypoglycemia E08.649 Diabetes mellitus complication detail: without coma Diabetes mellitus fdc insulin use: unspecified exterminator helper termite insulin use status Acute renal failure N17.9 Acute renal failure type: unspecified Acute alteration in mental status R41.82 Type 1 diabetes E10.9 Diabetic ketoacidosis E11.10 Metabolic acidosis E87.20 Rhabdomyolysis M62.82
[2023-12-10] MEDS: ceFAZolin 2,000 MG in sodium chloride 0.9% (plus) 50 ML 100 MG IV (15:11)
[2023-12-10] MEDS: lidocaine-epi 1% 20 mL INJ INJECTION (15:23)
[2023-12-10] MEDS: heparin, porcine 1,000 unit/mL INJ 10 mL 10000 UNIT IRRIGATION (15:24)
--- NOTE | 2023-12-10 15:41 | P.OP_ITS ---
Operative Report Date of procedure: December 10, 2023 Pre-op diagnosis: Need for hemodialysis Post-op diagnosis: Same Post-op findings: Normal vascular anatomy Procedure done: Insertion of tunneled dialysis catheter Implants: Tunneled dialysis catheter 23 cm from cuff to tip Surgeon: Yonathan Ramos MD Outpatient Scheduler: ANDREIA OR Staff Estimated blood loss: 10 Complications: None apparent Brief History: 33-year-old male with history of diabetes who presented with acute kidney injury and a creatinine of 10, no significant improvement after treatment and therefore nephrology has decided that the patient will be a good candidate for dialysis. I have been asked to place a tunneled dialysis catheter. After discussion of the risk and benefits with the patient we decided to proceed. Procedure: The patient was brought into the OR. He was placed in a supine position. Moderate anesthesia sedation was given. The right upper chest and neck was prepped and draped in the usual sterile fashion. Timeout was conducted. Ultrasound was used to identify the right IJ vein, local anesthesia was infiltrated on top of the vein. I then proceeded to cannulate the vein with an 18-gauge needle under direct ultrasound guidance immediate return of blood was seen after the needle tip entered the vein. A wire was advanced and the needle was removed. Wire position was verified with ultrasound and fluoroscopy. Local anesthesia was then infiltrated in the chest and neck area. A 1 cm incision was then made at the level of the right upper chest in the previously marked area, a hemostat was used to create a tunnel from this incision to the wire insertion site in the neck. A 0.5 cm incision was also made in the neck at the level of the wire insertion site. The dialysis catheter was then tunneled from the chest to the neck using the provided tunneler. The venous tract was then dilated with sequential sizes of dilators under direct fluoroscopy guidance. I then inserted a peel-off sheath with an introducer over the wire under direct fluoroscopic guidance. The introducer and wire were removed leaving the peel-off sheath in place. The catheter was then advanced through the peel-off sheath and the peel- off sheath was removed leaving the catheter in place. Fluoroscopy showed adequate location of the catheter. Venous and arterial lumen were accessed and were noted to be flushing and retrieving blood in a rate appropriate for dialysis. The catheter was then hep-locked. The catheter was fixed to the skin with #3-0 silk. The neck wound was closed with #3-0 Vicryl. Dermabond was appl ied. And a sterile dressing was placed on the neck and on the chest and the tips of the catheter were covered. At the end of the procedure all counts were correct, the patient tolerated well the procedure and was transferred to the PACU in stable condition.
--- NOTE | 2023-12-10 16:20 | ANE.PACU2 ---
Inpatient post-anesthesia follow up: Airway intact: Yes Vital signs: Temperature 98.5 F Pulse Rate 69 Respiratory Rate 27 Blood Pressure 145/90 Pulse Oximetry 100 Oxygen Delivery Me thod Room Air Oxygen Flow Rate Fraction of Inspir ed Oxygen Hydration adequate: Yes Nausea and vomiting: No Pain level: 1 Mental status: Baseline
--- NOTE | 2023-12-10 16:30 | XRR_ITS ---
PROCEDURE INFORMATION: Exam: XR Chest Exam date and time: 12/10/2023 3:38 PM Age: 33 years old Clinical indication: Device placement; Other: Dialysis catheter placement; Prior surgery; Surgery date: Post-operative (0-2 days) TECHNIQUE: Imaging protocol: Radiologic exam of the chest. Views: 1 view. COMPARISON: CT abdomen pelvis con [id number] 12/07/2023 10:16 AM FINDINGS: Lungs: No focal consolidation. Pleural spaces: No evidence of pneumothorax. No evidence of pleural effusion. Heart/Mediastinum: Cardiomediastinal silhouette is within normal limits. Bones/joints: No evidence of acute osseous abnormality. Right-sided dialysis catheter in place with tip in the region of the cavoatrial junction. There is chronic deformity of the proximal left humerus, possibly reflecting fibrous dysplasia or posttraumatic deformity. If symptomatic, consider correlation with dedicated radiographs. XR/XR chest 1V portable [id number] IMPRESSION: 1. Right-sided dialysis catheter in place with tip in the region of the cavoatrial junction. 2. 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 If symptomatic, consider correlation with dedicated radiographs.
[2023-12-10 17:08] LABS: Glucose Point of Care 200 mg/dL (70-110)
[2023-12-10] MEDS: insulin lispro 100 unit/1 mL SUBCUT (17:14)
[2023-12-10] MEDS: ondansetron 2 mg/ML SDV 2 mL 4 MG IVP ×2 (19:04→19:15)
--- NOTE | 2023-12-10 20:26 | PC.NURSE ---
Arrival to ICU 11: Returned from dialysis @2025. Connected to continuos monitoring.
[2023-12-10 20:31] LABS: Glucose Point of Care 73 mg/dL (70-110)
[2023-12-10] MEDS: metoclopramide 5 mg/mL SDV 2 mL IVP (20:35)
[2023-12-10] MEDS: heparin 5,000 unit/mL INJ 1 mL 5000 UNIT SUBCUT (20:42)
[2023-12-10] MEDS: TRAMadol 50 mg Tablet 25 MG PO (20:43)
--- NOTE | 2023-12-10 21:19 | PC.NURSE ---
Transfer to [facility]: Transfered to [facility] @5021.
[2023-12-10 21:42] LABS: Glucose Point of Care 194 mg/dL (70-110)
[2023-12-11] VITALS (9 sets, daily range): BP systolic 141–198; BP diastolic 76–106; PULSE 64–82; RESP 16–18; TEMP 36.6–37.2; O2SAT 96–98; BMI 23.8
[2023-12-11] MEDS: hyDRALAzine 25 mg Tablet PO ×5 (01:11→23:46)
[2023-12-11] MEDS: TRAMadol 50 mg Tablet 25 MG PO (01:24)
[2023-12-11] MEDS: ondansetron 2 mg/ML SDV 2 mL 4 MG IVP (05:39)
[2023-12-11 05:52] LABS: Basophils % 0.2 %; Eosinophils # 0.2 10^3/uL (0.0-0.8); Eosinophils % 1.6 %; Lymphocytes # 1.9 10^3/uL (0.8-4.8); Lymphocytes % 16.6 %; Mean Corpuscular HGB Conc 31.1 g/dL (30-55); Mean Corpuscular Hemoglobin 26.8 pg (27-33); Mean Corpuscular Volume 86.2 fl (82-101); Mean Platelet Volume 11.3 fL (7.4-10.4); Monocytes # 0.9 10^3/uL (0.2-0.9); Monocytes % 7.9 %; Neutrophils # 8.51 10^3/uL (1.8-7.7); Neutrophils % 73.4 %; Nucleated Red Blood Cells % 0 %; Platelet Count 195 10^3/cmm (157-399); Red Blood Count 3.25 10^6/uL (3.85-5.65); Red Cell Distribution Width 13.1 % (12.1-15.1); White Blood Count 11.58 10^3/uL (3.29-11.43)
[2023-12-11 06:14] LABS: Alanine Aminotransferase 16 U/L (0-41); Albumin Level 3.5 g/dL (3.5-5.2); Alkaline Phosphatase 81 U/L (40-130); Aspartate Amino Transferase 33 U/L (0-40); Blood Urea Nitrogen 37 mg/dL (6-20); Calcium 8.3 mg/dL (8.5-10.5); Carbon Dioxide 25 mmol/L (22-29); Chloride 103 mmol/L (98-107); Creatinine Clr Calc Pharmacy 17.3902; Globulin 2.7 g/dL (1.3-4.6); Glomerular Filtration Rate 9.6 mL/min (90-130); Glucose 98 mg/dL (65-115); Magnesium 2.3 mg/dL (1.7-2.3); Osmolality Calculated 301 mOsm/kg (285-295); Phosphorus 4.5 mg/dL (2.5-4.5); Sodium 141 mmol/L (136-145); Total Bilirubin 0.2 mg/dL (0.15-1.2); Total Protein 6.2 g/dL (6.6-8.7)
[2023-12-11 06:20] LABS: Creatine Phosphokinase 884 U/L (39-308)
[2023-12-11 06:36] LABS: Glucose Point of Care 132 mg/dL (70-110)
[2023-12-11] MEDS: metoclopramide 5 mg/mL SDV 2 mL IVP (08:46)
[2023-12-11] MEDS: heparin 5,000 unit/mL INJ 1 mL 5000 UNIT SUBCUT ×2 (08:46→20:00)
[2023-12-11] MEDS: sodium bicarbonate 650 mg Tablet PO ×2 (08:47→15:07)
[2023-12-11] MEDS: amlodipine 10 mg Tablet PO (08:47)
[2023-12-11] MEDS: cloNIDine 0.1 mg Tablet 0.100000000000000006 MG PO ×2 (08:47→17:30)
[2023-12-11 08:48] LABS: Glucose Point of Care 229 mg/dL (70-110)
[2023-12-11 11:06] LABS: Glucose Point of Care 247 mg/dL (70-110)
[2023-12-11] MEDS: scopolamine 1.5 Patch 1 PATCH TRANSDERMA (11:26)
[2023-12-11] MEDS: diphenhydrAMINE 25 mg Capsule PO ×2 (12:05→17:32)
[2023-12-11] MEDS: insulin lispro 100 unit/1 mL SUBCUT ×2 (12:05→17:30)
[2023-12-11 13:15] LABS: Anti-Nuclear Antibody Pattern Nuclear, Speckled; Anti-Nuclear Antibody Screen POSITIVE (NEGATIVE)
--- NOTE | 2023-12-11 13:58 | PC.HD ---
Note for 12/10/23 treatment: Initial dialysis treatment for patient was tolerated well and new tunnelled cath worked well.
[2023-12-11 14:14] LABS: Glomerular Bsmt Membrane IGG <1.0 AI
--- NOTE | 2023-12-11 16:33 | PM.PN ---
Vitals/I&O/Wt Last Vital Signs Temp 98.3 F 12/11/23 10:42 Pulse 67 12/11/23 11:26 Resp 17 12/11/23 10:42 BP 166/91 12/11/23 11:26 Pulse Ox 97 12/11/23 10:42 O2 Del Method Room Air 12/11/23 10:42 12/11/23 12/11/23 12/11/23 06:59 14:59 22:59 Intake Total 240 / 1190 240 / 240 Output Total 300 / 2660 Balance -60 / -1470 240 / 240 Weight last 48 hrs Weight 79.605 kg Weight 79.2 kg Weight 78.335 kg Physical Exam Const: COMMON NORMALS: no acute distress and patient oriented x3 Neck/C-Spine: OTHER: Right-sided temporary dialysis catheter placed Resp: COMMON NORMALS: normal respiratory effort, No retractions, No use of accessory muscles and clear to auscultation bilaterally AUSCULTATION: clear to auscultation bilaterally Cardio: COMMON NORMALS: regular rate, regular rhythm, S1 normal heart sound present and S2 normal heart sound present RATE: regular rate RHYTHM: regular rhythm HEART SOUNDS: S1 normal heart sound present and S2 normal heart sound present GI: COMMON NORMALS: Normal to inspection, nondistended, normoactive bowel sounds present and non-tender Extremity: COMMON NORMALS: no pedal edema Neuro: COMMON NORMALS: patient oriented x3 Psych: COMMON NORMALS: mental status grossly normal Data 12/11/23 05:10 12/11/23 05:10 A&P Assessment and plan (1) Hypertension, uncontrolled: (2) Diabetes mellitus due to underlying condition with hypoglycemia: Qualifiers: Diabetes mellitus complication detail: without coma Diabetes mellitus long-term insulin use: unspecified long term care administrator insulin use status Qualified Code(s): E08.649 - Diabetes mellitus due to underlying condition with hypoglycemia without coma (3) Acute renal failure: Qualifiers: Acute renal failure type: unspecified Qualified Code(s): N17.9 - Acute kidney failure, unspecified (4) Acute alteration in mental status: (5) Type 1 diabetes: (6) Diabetic ketoacidosis: (7) Metabolic acidosis: (8) Rhabdomyolysis: Plan Diabetic ketoacidosis, ketones positive, anion gap 30, bicarb 14, pH 7.24 Plan ? Resolved, ?Continue insulin sliding scale ? 10 units in the morning, 20 units at bedtime Metabolic encephalopathy related to hypoglycemia: Resolved Hypoglycemia with underlying type 1 diabetes: Resolved, most likely happened due to worsening of kidney function without changing his Novolin sliding scale intensity Acute renal failure, creatinine [address] abdomen pelvis without contrast, within normal limits Check urine drug screen, check urinalysis Consulted nephro Check HIV and hepatitis panel Check C3, C4 Diabetes related nephropathy? Status post dialysis catheter placement, has received inpatient dialysis Rhabdomyolysis, resolved Anemia of chronic disease Hemoglobin 9 Patient is not hypotensive or tachycardic No signs of active bleed Hypertension, requiring blood pressure monitor and management Full code Consistent carb diet Plan for today dialysis catheter placement, /Catheter placement, arranging outpatient dialysis Attestations Medical Necessity Statement*: Patient requires hospitalization for acute renal failure requiring dialysis, hypertension requiring blood pressure management Diagnoses Hypertension, uncontrolled I10 Diabetes mellitus due to underlying condition with hypoglycemia E08.649 Diabetes mellitus complication detail: without coma Diabetes mellitus long term care administrator insulin use: unspecified long term care administrator insulin use status Acute renal failure N17.9 Acute renal failure type: unspecified Acute alteration in mental status R41.82 Type 1 diabetes E10.9 Diabetic ketoacidosis E11.10 Metabolic acidosis E87.20 Rhabdomyolysis M62.82
[2023-12-11 17:28] LABS: Glucose Point of Care 257 mg/dL (70-110)
[2023-12-11] MEDS: lisinopril 20 mg Tablet PO (17:30)
[2023-12-11 21:10] LABS: Glucose Point of Care 156 mg/dL (70-110)
[2023-12-11] MEDS: insulin glargine 100 units/1 mL 20 UNIT SUBCUT (21:27)
--- NOTE | 2023-12-11 22:57 | PM.PN ---
Subjective Subjective: no new c/o Medications: Reviewed: Yes Vitals/I&O/Wt Last Vital Signs Temp 97.9 F 12/11/23 20:30 Pulse 80 12/11/23 20:30 Resp 18 12/11/23 20:30 BP 163/97 12/11/23 20:30 Pulse Ox 97 12/11/23 20:30 O2 Del Method Room Air 12/11/23 20:30 12/11/23 12/11/23 12/11/23 06:59 14:59 22:59 Intake Total 240 / 1190 240 / 240 960 / 1200 Output Total 300 / 2660 650 / 650 Balance -60 / -1470 240 / 240 310 / 550 Weight last 48 hrs Weight 79.605 kg Weight 79.2 kg Weight 78.335 kg Physical Exam Const: COMMON NORMALS: no acute distress and alert Neuro: SENSORIUM/ORIENTATION: Yes alert Data 12/11/23 05:10 12/11/23 05:10 A&P Assessment and plan (1) Diabetic nephropathy: Plan 1. Renal failure, duration unknown, probable diabetic nephropathy. Mild rhabdomyolysis, CK improving, urine Na, FeNa consistent with volume depletion. 2. DKA, increased AG metabolic acidosis, improved 3. Hypertension, continue amlodipine and hydralazine 4. Anemia, adequate iron, begin procrit, start maintenance IV iron at dialysis plan :s/p tunnelled catheter , hd tomorrow Indications for hemodialysis discussed in detail, risks and benefits. Kaden agrees to proceed. Also discussed likelihood renal function will not recover, need for AVF if staying on HD, peritoneal dialysis and renal transplant options. Attestations Medical Necessity Statement*: per medicine Coding Level of Care Code Acute Code for [facility] Diagnoses Diabetic nephropathy E11.21
[2023-12-12] VITALS (8 sets, daily range): BP systolic 139–168; BP diastolic 77–96; PULSE 68–75; RESP 16–18; TEMP 36.6–37; O2SAT 97–98; BMI 22.4
[2023-12-12] MEDS: lisinopril 20 mg Tablet PO (05:35)
[2023-12-12] MEDS: hyDRALAzine 25 mg Tablet PO ×2 (05:35→13:02)
[2023-12-12 06:06] LABS: Alanine Aminotransferase 7 U/L (0-41); Albumin Level 3.3 g/dL (3.5-5.2); Alkaline Phosphatase 83 U/L (40-130); Anion Gap 14.6 (5-19); Aspartate Amino Transferase 22 U/L (0-40); Blood Urea Nitrogen 47 mg/dL (6-20); Calcium 8.1 mg/dL (8.5-10.5); Carbon Dioxide 27 mmol/L (22-29); Chloride 101 mmol/L (98-107); Globulin 2.8 g/dL (1.3-4.6); Glomerular Filtration Rate 8.3 mL/min (90-130); Glucose 220 mg/dL (65-115); Osmolality Calculated 305 mOsm/kg (285-295); Potassium 4.6 mmol/L (3.5-5.1); Sodium 138 mmol/L (136-145); Total Bilirubin 0.2 mg/dL (0.15-1.2); Total Protein 6.1 g/dL (6.6-8.7)
[2023-12-12 06:28] LABS: Glucose Point of Care 218 mg/dL (70-110)
--- NOTE | 2023-12-12 07:33 | PC.HD ---
Heparin 1000 units loading dose administered via venous port of HD catheter at 0720 per welder gas's orders.
[2023-12-12] MEDS: amlodipine 10 mg Tablet PO (10:54)
[2023-12-12] MEDS: metoprolol tartrate 25 mg Tablet PO (10:54)
[2023-12-12] MEDS: cloNIDine 0.1 mg Tablet 0.100000000000000006 MG PO (10:55)
[2023-12-12] MEDS: sennosides-docusate Tablet 1 TAB PO (10:55)
[2023-12-12] MEDS: insulin glargine 100 units/1 mL 10 UNIT SUBCUT (10:56)
[2023-12-12 11:34] LABS: ANCA Screen NEGATIVE (NEGATIVE)
[2023-12-12 11:39] LABS: Glucose Point of Care 218 mg/dL (70-110)
--- NOTE | 2023-12-12 11:52 | PC.NURSE ---
pt asked to have IV to right hand removed because I'm only here for dialysis . Advised that we prefer to have IV access incase IV meds or fluids are needed, pt became aggravated and restated that he wants it out. IV catheter removed and intact. Dr. Rodriguez notified.
--- NOTE | 2023-12-12 12:46 | P.PN_ITS ---
Subjective 2 Subjective: Patient was seen this morning, mother at bedside, getting dialysis, we discussed his renal failure, he likely has end-stage renal disease and is going to need dialysis 3 times a week, were going to set this up as outpatient, eventually his kidney to follow-up with nephrology likely kidney biopsy, his secondary workup for renal failure is still pending, but I suspect that likely the cause of his renal failure is a long history of type 1 diabetes with uncontrolled hypertension which was going on for some period of time and he had not seen a physician in over 7 years and now he is in end-stage renal failure we will continue to monitor him, titrate his blood pressure, he is agreeable Vitals/I&O/Wt Last Vital Signs Temp 98.0 F 12/12/23 11:51 Pulse 69 12/12/23 11:51 Resp 16 12/12/23 11:51 BP 161/88 12/12/23 11:51 Pulse Ox 98 12/12/23 11:51 O2 Del Method Room Air 12/12/23 11:51 12/11/23 12/12/23 12/12/23 22:59 06:59 14:59 Intake Total 960 / 1200 540 / 1740 780 / 780 Output Total 650 / 650 3500 / 3500 Balance 310 / 550 540 / 1090 -2720 / -2720 Weight last 48 hrs Weight 73.8 kg Weight 74.979 kg Weight 79.605 kg Weight 79.2 kg Physical Exam 2 Const: COMMON NORMALS: no acute distress and patient oriented x3 Resp: COMMON NORMALS: normal respiratory effort, No retractions, No use of accessory muscles and clear to auscultation bilaterally AUSCULTATION: clear to auscultation bilaterally Cardio: COMMON NORMALS: regular rate, regular rhythm, S1 normal heart sound present and S2 normal heart sound present RATE: regular rate RHYTHM: r egular rhythm HEART SOUNDS: S1 normal heart sound present and S2 normal heart sound present GI: COMMON NORMALS: Normal to inspection, nondistended, normoactive bowel sounds present and non-tender Extremity: COMMON NORMALS: no pedal edema Neuro: COMMON NORMALS: patient oriented x3 Psych: COMMON NORMALS: mental status grossly normal Data 12/11/23 05:10 12/12/23 05:24 A&P Assessment and plan (1) Hypertension, uncontrolled: (2) Diabetes mellitus due to underlying condition with hypoglycemia: Qualifiers: Diabetes mellitus complication detail: without coma Diabetes mellitus intermediate insulin use: unspecified customer accounts advisor insulin use status Qualified Code(s): E08.649 - Diabetes mellitus due to underlying condition with hypoglycemia without coma (3) Acute renal failure: Qualifiers: Acute renal failure type: unspecified Qualified Code(s): N17.9 - Acute kidney failure, unspecified (4) Acute alteration in mental status: (5) Type 1 diabetes: (6) Diabetic ketoacidosis: (7) Metabolic acidosis: (8) Rhabdomyolysis: (9) End stage renal disease: (10) Resistant hypertension: Plan Diabetic ketoacidosis, ketones positive, anion gap 30, bicarb 14, pH 7.24 Plan ? Resolved, ?Continue insulin sliding scale ? 10 units in the morning, 20 units at bedtime Metabolic encephalopathy related to hypoglycemia: Resolved Hypoglycemia with underlying type 1 diabetes: Resolved, most likely happened due to worsening of kidney function without changing his Novolin sliding scale intensity Initially when patient presented to the hospital with a follow-up was he had acute renal failure likely related to possible rhabdomyolysis, dehydration, however his creatinine has persisted between 9 and 10 after more than 72 hours of IV hydration, nephrology consultation and medical optimization, likely it is that patient has end-stage renal disease secondary to years of uncontrolled hypertension, and type 1 diabetes mellitus, that went unchecked, and as he has not seen a physician in over 7-8 years, he was taking his diabetic medications [id number], soft pain, there is no a healthcare professional managing his A1c or his hypertension, and likely his kidney function slowly declined, and as it was not being monitored, patient was unaware except that he does tell me that for the last few years he has not been feeling well, intermittent nausea, not feeling well, likely progression of his renal failure to end-stage renal disease CT abdomen pelvis without contrast, within normal limits Check urine drug screen, check urinalysis Consulted nephro Will need outpatient follow-up with nephrology, kidney biopsy Status post dialysis catheter placement, has received inpatient dialysis Rhabdomyolysis, resolved Anemia of chronic disease Hemoglobin 9 Patient is not hypotensive or tachycardic No signs of active bleed Hypertension, resistant hypertension, Will titrate p.o. blood pressure medications Full code Consistent carb diet Plan for today dialysis today, blood pressure management, arranging outpatient dialysis Attestations 2 Medical Necessity Statement*: Patient requires hospitalization for end-stage renal disease, requiring dialysis, hypertension requiring titration of blood pressure medications, increased hydralazine to 25 every 6 hours, added on metoprolol 25 twice daily Diagnoses Hypertension, uncontrolled I10 Diabetes mellitus due to underlying condition with hypoglycemia E08.649 Diabetes mellitus complication detail: without coma Diabetes mellitus customer accounts advisor insulin use: unspecified customer accounts advisor insulin use status Acute renal failure N17.9 Acute renal failure type: unspecified Acute alteration in mental status R41.82 Type 1 diabetes E10.9 Diabetic ketoacidosis E11.10 Metabolic acidosis E87.20 Rhabdomyolysis M62.82 End stage renal disease N18.6 Resistant hypertension I1A.0
[2023-12-12] MEDS: insulin lispro 100 unit/1 mL SUBCUT (13:01)
--- NOTE | 2023-12-12 13:53 | PC.NURSE ---
This nurse went to pt's room to give meds, pt and both cgs not in room. Charge nurse notified, myself and SHALOM Morataya went downstairs and to each unit and did not find pt. Pt's mother found sitting by the main entrance, states they all came downstairs so he could go to the gift shop and that he was just in the food court . Updated Charge Nurse Celestina who then called a medical elopement. carpenter supervisor was able to locate pt outside and pt was brought back to his room. Reiterated that he is not to leave the floor. Dr. Rodriguez updated.
--- NOTE | 2023-12-12 14:34 | P.DS_ITS ---
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: unspecified computer terminal operator insulin use status Qualified Code(s): E08.649 - Diabetes mellitus due to underlying condition with hypoglycemia without coma (3) Acute renal failure: Status: Acute Qualifiers: Acute renal failure type: unspecified Qualified Code(s): N17.9 - Acute kidney failure, unspecified (4) Acute alteration in mental status: Status: Acute (5) Type 1 diabetes: Status: Acute (6) Diabetic ketoacidosis: Status: Acute (7) Metabolic acidosis: Status: Acute (8) Rhabdomyolysis: Status: Acute (9) End stage renal disease: Status: Acute (10) Resistant hypertension: Status: Acute Reason for Visit Reason for Visit: Hypoglycemic Hospital Course Hospital Course Kaden Lozano is a 33 year old male who has moved from [place] in 2020 to this point, has not seen a doctor in a long time, he only takes [id number] Novolin does not have insurance however 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 Patient is denying chest pain, shortness of breath, fever, endorses for marijuana. No history of HIV or hepatitis Hemoglobin A1c is 8.8, anemia hemoglobin is 9, creatinine 9.8, potassium 4.4, anion gap 19.[address] abdomen pelvis without contrast and consulted nephro requested drug screen, urine analysis He is hypertensive I will give him amlodipine and hydralazine Patient was admitted to [facility] for acute kidney injury, baseline kidney function unknown, received IV fluids, as there was concerns for dehydration as an rhabdomyolysis as an etiology, however creatinine did not improve remained between 9 and 10. Nephrology was consulted, monitor kidney function, secondary workup ordered, after discussing with patient and nephrology, and his creatinine remained between 9 and 10, after discussing the risk and benefits, patient agreed to proceed with dialysis, had a right tunneled dialysis catheter placement and received 2 sessions of inpatient dialysis, tolerated well. Likely patient's persistently elevated creatinine between 9 and 10 after more than 72 hours of IV hydration, medical optimization is not reflective of end-stage renal disease due to poorly controlled type 1 diabetes mellitus, and hypertension.Initially when patient presented to the hospital with a follow-up was he had acute renal failure likely related to possible rhabdomyolysis, dehydration, however his creatinine has persisted between 9 and 10 after more than 72 hours of IV hydration, nephrology consultation and medical optimization, likely it is that patient has end-stage renal disease secondary to years of uncontrolled hypertension, and type 1 diabetes mellitus, that went un checked, and as he has not seen a physician in over 7-8 years, he was taking his diabetic medications [id number], was not on blood pressure medications, he had no healthcare professional managing his A1c or his hypertension or monitoring his kidney function, and likely his kidney function slowly declined over many years, and as it was not being monitored, patient was unaware except that he does tell me that for the last few years he has not been feeling well, intermittent nausea, not feeling well, likely progression of his renal failure to end-stage renal disease. Nonetheless we have ordered a secondary workup for renal failure, appointment has been made for patient to follow-up with nephrology in [place], for consideration of renal biopsy and additional secondary workup for renal failure. As patient did not have any insurance, it was very difficult to set up outpatient dialysis, patient has applied for Medicaid and financial engineer, given his end-stage renal disease, this is pending but for the meanwhile we have set up for patient to come back to the hospital for his dialysis schedule. For resistant hypertension, patient was discharged on amlodipine 10 mg daily, clonidine point 1 mg p.o. twice daily, hydralazine 25 mg every 6 hours, lisinopril 20 mg every 12 hours, metoprolol 25 mg p.o. twice daily, follow-up with outpatient physician for titration of blood pressure medications For patient's type 1 diabetes mellitus he did develop diabetic ketoacidosis during his hospitalization, required ICU admission, insulin drip, IV fluids, his anion gap resolved, transition to subcu insulin. On discharge he will be discharged on a NovoLog sliding scale, with Basaglar 10 units in the morning and 20 units in the evening -Please monitor your blood sugars closely -Monitor your blood sugars 3 times daily as after meals -Please record your blood sugars, and a blood sugar log -For your NovoLog -Please inject blood sugar after meals based on sliding scale provided -Do not inject insulin if you do not eat as hypoglycemia kills -This is a NovoLog sliding scale -Insulin sliding ?fingerstick? Insulin ?141-180?0 units/sq 181-220?2 units/sq ?221-260?4 units/sq ?261-300 6 units/sq ?301-350?8 units/sq ?351-400 10 units/sq ?401-450?12 units/sq >450? 14units/sq -If your blood sugar is greater than 500 go to the emergency room -If your blood sugar is less than 60 or at anytime you feel lightheaded or dizzy or diaphoretic or have chest palpitations check your blood sugar, and eat a hard candy or drink orange juice and go immediately to the emergency room -Remember hypoglycemia kills, so if his blood sugar is less than 60 we have to increase it by taking in a sugary meal such as a hard candy or orange juice and go to the emergency room -If you have any questions please call us where here to help Physical Exam Const: COMMON NORMALS: no acute distress and patient oriented x3 Chest: OTHER: Right chest dialysis catheter in place Resp: COMMON NORMALS: normal respiratory effort, No retractions, No use of accessory muscles and clear to auscultation bilaterally AUSCULTATION: clear to auscultation bilaterally Cardio: COMMON NORMALS: regular rate, regular rhythm, S1 normal heart sound present and S2 normal heart sound present RATE: regular rate RHYTHM: regular rhythm HEART SOUNDS: S1 normal heart sound present and S2 normal heart sound present GI: COMMON NORMALS: Normal to inspection, nondistended, normoactive bowel sounds present and non-tender Extremity: COMMON NORMALS: no pedal edema Neuro: COMMON NORMALS: patient oriented x3 Psych: COMMON NORMALS: mental status grossly normal Discharge Data Studies Completed and Pending Completed Studies During Hospitalization Category Date Time Status CT abdomen pelvis wo con [id number] Routine Cat Scan 12/07/23 06:17 Completed XR chest 1V portable [id number] Routine Exams 12/10/23 16:30 Completed CV. echo complete* [id number] Routine Ultrasound 12/07/23 06:13 Completed Pending at discharge Category Date Time Status Comprehensive Metabolic Panel AM LABS Lab 12/13/23 04:00 Ordered Comprehensive Metabolic Panel AM LABS Lab 12/14/23 04:00 Ordered Radiology Impressions Abdomen/Pelvis CT 12/07/23 06:17 IMPRESSION: No acute findings. Chest X-Ray 12/10/23 16:30 IMPRESSION: 1. Right-sided dialysis catheter in place with tip in the region of the cavoatrial junction. 2. 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 If symptomatic, consider correlation with dedicated radiographs. Laboratory Results WBC 11.58 10^3/uL (3.29-11.43) H 12/11/23 05:10 RBC 3.25 10^6/uL (3.85-5.65) L 12/11/23 05:10 Hgb 8.70 g/dL (11.27-16.99) L 12/11/23 05:10 Hct 28.0 % (37-53) L 12/11/23 05:10 MCV 86.2 fl (82-101) 12/11/23 05:10 MCH 26.8 pg (27-33) L 12/11/23 05:10 MCHC 31.1 g/dL (30-55) D 12/11/23 05:10 RDW 13.1 % (12.1-15.1) 12/11/23 05:10 Plt Count 195 10^3/cmm (157-399) 12/11/23 05:10 MPV 11.3 fL (7.4-10.4) H 12/11/23 05:10 Neut % (Auto) 73.4 % 12/11/23 05:10 Lymph % (Auto) 16.6 % 12/11/23 05:10 [place] % (Auto) 7.9 % 12/11/23 05:10 Eos % (Auto) 1.6 % 12/11/23 05:10 Baso % (Auto) 0.2 % 12/11/23 05:10 Neut # (Auto) 8.51 10^3/uL (1.8-7.7) H 12/11/23 05:10 Lymph # (Auto) 1.9 10^3/uL (0.8-4.8) 12/11/23 05:10 [place] # (Auto) 0.9 10^3/uL (0.2-0.9) 12/11/23 05:10 Eos # (Auto) 0.2 10^3/uL (0.0-0.8) 12/11/23 05:10 Baso # (Auto) 0.0 10^3/uL (0.0-0.1) 12/11/23 05:10 Nucleated RBC % (auto) 0 % 12/11/23 05:10 Nucleated RBCs # 0.0 /100WBC 12/11/23 05:10 ESR 29 mm/hr (0-10) H 12/07/23 03:45 Specimen Type Arterial 12/08/23 07:48 Sample Site Brachial, right 12/08/23 07:48 ABG pH 7.23 (7.35-7.45) L 12/08/23 07:48 ABG pCO2 33.4 mmHg (35-45) L 12/08/23 07:48 ABG pO2 97.0 mmHg (80.0-100.0) 12/08/23 07:48 ABG PO2/FiO2 Ratio 0 12/08/23 07:48 ABG HCO3 13.9 mmol/L (22-26) L 12/08/23 07:48 ABG Base Excess -12.6 mmol/L (-2.0-2.0) L 12/08/23 07:48 Braulio Test N/a 12/08/23 07:48 Hematocrit 26.6 % (42-52) L 12/08/23 07:48 O2 Delivery Device Room air 12/08/23 07:48 FiO2 21.0 % 12/08/23 07:48 Rehabilitation Therapy Technician ID Amh 12/08/23 07:48 Sodium 138 mmol/L (136-145) 12/12/23 05:24 Potassium 4.6 mmol/L (3.5-5.1) 12/12/23 05:24 Chloride 101 mmol/L (98-107) 12/12/23 05:24 Carbon Dioxide 27 mmol/L (22-29) 12/12/23 05:24 Anion Gap 14.6 (5-19) 12/12/23 05:24 BUN 47 mg/dL (6-20) H 12/12/23 05:24 Creatinine 7.6 mg/dL (0.7-1.2) H* 12/12/23 05:24 GFR Calculation 8.3 mL/min (90-130) L 12/12/23 05:24 Glucose 220 mg/dL (65-115) H 12/12/23 05:24 POC Glucose 218 mg/dL (70-110) H 12/12/23 11:33 Estimat Average Glucose 206 12/07/23 03:45 Hemoglobin A1c 8.8 % (4.0-6.0) H 12/07/23 03:45 Calculated Osmolality 305 mOsm/kg (285-295) H 12/12/23 05:24 Lactate 0.6 mmol/L (0.5-2.2) 12/08/23 20:16 Calcium 8.1 mg/dL (8.5-10.5) L 12/12/23 05:24 Phosphorus 4.5 mg/dL (2.5-4.5) 12/11/23 05:10 Magnesium 2.3 mg/dL (1.7-2.3) 12/11/23 05:10 Iron 89 ug/dL (59-158) 12/07/23 03:45 TIBC 363 mcg/dl 12/07/23 03:45 % Saturation 24.5 % (20-50) 12/07/23 03:45 Unsat Iron Binding 274 ug/dL (112-347) 12/07/23 03:45 Ferritin 48 ng/mL (30-400) 12/07/23 03:45 Total Bilirubin 0.2 mg/dL (0.15-1.2) 12/12/23 05:24 AST 22 U/L (0-40) 12/12/23 05:24 ALT 7 U/L (0-41) 12/12/23 05:24 Alkaline Phosphatase 83 U/L (40-130) 12/12/23 05:24 Creatine Kinase 884 U/L (39-308) H* 12/11/23 05:10 C-Reactive Protein 3.0 mg/L (0.0-4.9) 03/23/24 02:13 Total Protein 6.1 g/dL (6.6-8.7) L 12/12/23 05:24 Albumin 3.3 g/dL (3.5-5.2) L 12/12/23 05:24 Globulin 2.8 g/dL (1.3-4.6) 12/12/23 05:24 Lipase 53 U/L (13-60) 12/08/23 09:02 Vitamin B12 505 pg/mL (232-1245) 12/07/23 03:45 25-OH Vitamin D Total 10 ng/mL (30-100) L 12/07/23 03:45 TSH 4.03 uIU/mL (0.27-4.20) 12/07/23 03:45 PTH Intact 473.4 pg/mL (15-65) H 12/07/23 03:45 Calcium (PTH Intact) 7.9 mg/dL (8.5-10.5) L 12/07/23 03:45 Urine Color Yellow (Yellow) 12/08/23 00:53 Urine Appearance Clear (CLEAR) 12/08/23 00:53 Urine pH 5 (5-7) 12/08/23 00:53 Ur Specific [place] 1.020 (1.005-1.030) 12/08/23 00:53 Urine Protein 3+ (Negative) H 12/08/23 00:53 Urine Glucose (UA) 4+ (Normal) H 12/08/23 00:53 Urine Ketones 1+ (Negative) H 12/08/23 00:53 Urine Blood 3+ (Negative) H 12/08/23 00:53 Urine Nitrate Negative (Negative) 12/08/23 00:53 Urine Bilirubin Neg (Negative) 12/08/23 00:53 Urine Urobilinogen Neg mg/dL (Negative) 12/08/23 00:53 Ur Leukocyte Esterase Negative (Negative) 12/08/23 00:53 Urine RBC 5-10 /hpf (0-2) H 12/08/23 00:53 Urine WBC 0-4 /hpf (0-5) H 12/08/23 00:53 Ur Eosinophil Smear Not Reportable 12/07/23 08:08 Ur Squamous Epith Cells 0-4 /hpf (0-5) H 12/08/23 00:53 Amorphous Sediment 1+ /hpf 12/08/23 00:53 Urine Bacteria 1+ /hpf (NONE) H 12/08/23 00:53 Fine Granular Casts 5-10 /lpf H 12/08/23 00:53 Coarse Granular Casts 0-4 /lpf H 12/08/23 00:53 Urine Mucus Trace /hpf 12/08/23 00:53 Urine Eosinophils No eosinophils seen 12/07/23 08:08 Ur Random Microalbumin 200 ug/dL (0-20) H 12/07/23 08:08 Ur Random Sodium 27 mmol/L 12/08/23 00:53 Ur Random Potassium 35 mmol/L 12/07/23 08:08 Ur Random Chloride 57 mmol/L 12/07/23 08:08 Urine Creatinine 126 mg/dL (39-259) 12/08/23 00:53 Microalb/Creat Ratio 2299 mg/dL (0-20) H 12/07/23 08:08 Urine Opiates Screen Negative ng/mL (Negative) 12/07/23 08:08 Ur Barbiturates Screen Negative ng/mL (Negative) 12/07/23 08:08 Ur Phencyclidine Scrn Negative ng/mL (Negative) 12/07/23 08:08 Ur Amphetamines Screen Negative ng/mL (Negative) 12/07/23 08:08 U Benzodiazepines Scrn Negative ng/mL (Negative) 12/07/23 08:08 Urine Cocaine Screen Negative ng/mL (Negative) 12/07/23 08:08 U Marijuana (THC) Screen Positive ng/mL (Negative) H 12/07/23 08:08 Serum Ketones Positive (Negative) H 12/08/23 02:13 SUSAN Screen Positive (NEGATIVE) A 12/07/23 03:45 SUSAN Titer 1:80 titer H 12/07/23 03:45 SUSAN Pattern Nuclear, speckled A 12/07/23 03:45 ANCA Screen Negative (NEGATIVE) 12/07/23 20:41 ANCA Titer Not Reportable 12/07/23 20:41 Glomerular Base Mem IgG <1.0 AI 12/07/23 20:41 Complement C3 90 mg/dL (90-180) 12/07/23 03:45 Complement C4 24 mg/dL (10-40) 12/07/23 03:45 Hepatitis A IgM Ab Non-reactive (Nonreactive) 12/07/23 03:45 Hep Bs Antigen Non-reactive (NON-REACTIVE) 12/07/23 20:41 Hep Bs Ag Confirmation Not Reportable 12/07/23 20:41 Hep Bs Antibody 15.6 (11.5-1000) 12/07/23 03:45 Hep B Core Total Ab Non-reactive (Nonreactive) 12/07/23 03:45 Hepatitis C Antibody Cancelled 12/07/23 03:45 Hepatitis C Antibody Non-reactive (Nonreactive) 12/07/23 03:45 HIV 1&2 Ab & HIV 1 Ag Non-reactive (Non-Reactiv) 12/07/23 03:45 HIV 1&2 Antibody Non-reactive (Non-Reactiv) 12/07/23 03:45 Anti-Streptolysin O Ab 163 IU/mL (<200) 12/07/23 20:41 Vitals Last Vital Signs Temp 98.0 F 12/12/23 11:51 Pulse 69 12/12/23 11:51 Resp 16 12/12/23 11:51 BP 161/88 12/12/23 11:51 Pulse Ox 98 12/12/23 11:51 O2 Del Method Room Air 12/12/23 11:51 Discharge Plan Discharge Patient Disposition: Home Condition: Stable Prescriptions: New clonidine HCl 0.1 mg Tablet 0.1 mg PO BID 30 Days Qty: 60 0RF lisinopril 20 mg Tablet 20 mg PO Q12H 30 Days Qty: 60 0RF hydralazine 25 mg Tablet 25 mg PO Q6H 30 Days Qty: 120 0RF amlodipine 10 mg Tablet 10 mg PO DAILY 30 Days Qty: 30 0RF metoprolol tartrate 25 mg Tablet 25 mg PO BID@0900,2100 30 Days Qty: 60 0RF Basaglar KwikPen U-100 Insulin 100 unit/mL (3 mL) insulin pen See Rx Instructions .ROUTE .COMPLEX Qty: 30 0RF Rx Instructions: Inject 10 units subcut QAM and 20 units subcut QPM Novolog FlexPen U-100 Insulin 100 unit/mL (3 mL) insulin pen See Rx Instructions .ROUTE .COMPLEX MDD 45 Qty: 30 0RF Rx Instructions: Inject, subcut, 3 times daily, after meals, based on sliding scale provided (DME) glucometer testing kit See Rx Instructions .Route .MEDSUPPLY Qty: 1 0RF Rx Instructions: Glucometer testing kit Lancets #100, strips #100 sevelamer HCl 800 mg tablet 800 mg PO TID 30 Days Qty: 90 0RF Rx Instructions: must administer with a meal/food calcitriol 0.25 mcg Capsule 0.25 mcg PO BID 30 Days Qty: 60 0RF Discharge Orders: Discharge Order (Routine); Ordered 12/12/23 Ordered By: Marv Rodriguez Referrals: Trevin Salvador DPM [Physician] - 1 month (diabetic foot exam, toenails, plantar warts) Ko Balderrama MD [Physician] - 1 week (diabetic eye exam) Santo Colin MD [Physician] - 1-3 days Mayte Porter DO [Referring] - 7-10 days ([facility] [place] [facility]) Discharge Diet: Diabetic Discharge Activity: Increase activity as tolerated Patient Instructions: Diabetes and Diet, Dialysis Diet (DC), Foot Care for People with Diabetes (DC), Type 1 Diabetes in Adults: New Diagnosis (ED), Hypoglycemia in a Person with Diabetes (DC), Diabetic Neuropathy (ED), Diabetic Foot Ulcers (DC), End Stage Kidney Disease (DC), Perma-cath Placement (DC), Hemodialysis (DC), Hemoglobin A1c (GEN), Mediterranean Diet (DC), Hypertension and Diabetes (DC), What to Do if Your Blood Sugar is Low (ED), Diabetes Type 1: Management (DC), Opioid Safety Activity Restrictions/Additional Instructions: - Please follow-up with primary care provider for recheck kidney function, monitor electrolytes ? Follow-up with primary care provider for blood pressure check, ? Inject Lantus 10 units subcu a.m., 20 units subcu p.m. ?-Please monitor your blood sugars closely -Monitor your blood sugars 3 times daily as after meals -Please record your blood sugars, and a blood sugar log -For your NovoLog -Please inject blood sugar after meals based on sliding scale provided -Do not inject insulin if you do not eat as hypoglycemia kills -This is a NovoLog sliding scale -Insulin sliding ?fingerstick? Insulin ?141-180?0 units/sq 181-220?2 units/sq ?221-260?4 units/sq ?261-300 6 units/sq ?301-350?8 units/sq ?351-400 10 units/sq ?401-450?12 units/sq >450? 14units/sq -If your blood sugar is greater than 500 go to the emergency room -If your blood sugar is less than 60 or at anytime you feel lightheaded or dizzy or diaphoretic or have chest palpitations check your blood sugar, and eat a hard candy or drink orange juice and go immediately to the emergency room -Remember hypoglycemia kills, so if his blood sugar is less than 60 we have to increase it by taking in a sugary meal such as a hard candy or orange juice and go to the emergency room -If you have any questions please call us where here to help Discharge Attestations Time Spent in Discharge Care*: greater than 30 min Quality Metrics Clinical Quality Measures [ No reported AMI, CVA or VTE this stay] Coding Level of Care Code 10056 Total time (in minutes) for Discharge: 45 Diagnoses Hypertension, uncontrolled I10 Diabetes mellitus due to underlying condition with hypoglycemia E08.649 Diabetes mellitus complication detail: without coma Diabetes mellitus detention insulin use: unspecified detention insulin use status Acute renal failure N17.9 Acute renal failure type: unspecified Acute alteration in mental status R41.82 Type 1 diabetes E10.9 Diabetic ketoacidosis E11.10 Metabolic acidosis E87.20 Rhabdomyolysis M62.82 End stage renal disease N18.6 Resistant hypertension I1A.0
[2023-12-12 15:29] LABS: Glucose Point of Care 189 mg/dL (70-110)
--- NOTE | 2023-12-12 15:50 | P.PN_ITS ---
Subjective 2 Subjective: s/p hd today Medications: Reviewed: Yes Vitals/I&O/Wt Last Vital Signs Temp 98.1 F 12/12/23 15:28 Pulse 71 12/12/23 15:28 Resp 18 12/12/23 15:28 BP 146/86 12/12/23 15:28 Pulse Ox 98 12/12/23 15:28 O2 Del Method Room Air 12/12/23 15:28 12/12/23 12/12/23 12/12/23 06:59 14:59 22:59 Intake Total 540 / 1740 780 / 780 Output Total 3500 / 3500 Balance 540 / 1090 -2720 / -2720 Weight last 48 hrs Weight 73.8 kg Weight 74.979 kg Weight 79.605 kg Weight 79.2 kg Physical Exam 2 Const: COMMON NORMALS: no acute distress and alert Neuro: SENSORIUM/ORIENTATION: Yes alert Data 12/11/23 05:10 12/12/23 05:24 A&P Assessment and plan (1) Diabetic nephropathy: Plan 1.ESRD : duration unknown, probable diabetic nephropathy. Mild rhabdomyolysis, CK improving, urine Na, FeNa consistent with volume depletion. 2. DKA, increased AG metabolic acidosis, improved 3. Hypertension, continue amlodipine and hydralazine 4. Anemia, adequate iron, begin procrit, start maintenance IV iron at dialysis 5. mbd : Added renvela and calcitriol plan :s/p tunnelled catheter , hd today Indications for hemodialysis discussed in detail, risks and benefits. Kaden agrees to proceed. Also discussed likelihood renal function will not recover, need for AVF if staying on HD, peritoneal dialysis and renal transplant options. plan to do out pt HD at the hospital , untill medicare approved Attestations 2 Medical Necessity Statement*: per xiangwi Coding Level of Care Code Acute Code for g Fwd Diagnoses Diabetic nephropathy E11.21
--- NOTE | 2023-12-12 16:41 | PC.NURSE ---
dc pending meds to beds and patient accounts coming to talk to him
--- NOTE | 2023-12-14 10:00 | P.PN_ITS ---
Subjective 2 Subjective: getting hD Medications: Reviewed: Yes Vitals/I&O/Wt Last Vital Signs Temp 98.1 F 12/12/23 15:28 Pulse 71 12/12/23 15:28 Resp 18 12/12/23 15:28 BP 146/86 12/12/23 15:28 Pulse Ox 98 12/12/23 15:28 O2 Del Method Room Air 12/12/23 15:28 Weight last 48 hrs Weight 73.8 kg Physical Exam 2 Const: COMMON NORMALS: no acute distress and alert Neuro: SENSORIUM/ORIENTATION: Yes alert Data 12/11/23 05:10 12/12/23 05:24 A&P Assessment and plan (1) Diabetic nephropathy: Plan 1.ESRD : duration unknown, probable diabetic nephropathy. Mild rhabdomyolysis, CK improving, urine Na, FeNa consistent with volume depletion. 2. DKA, increased AG metabolic acidosis, improved 3. Hypertension, continue amlodipine and hydralazine 4. Anemia, adequate iron, begin procrit, start maintenance IV iron at dialysis 5. mbd : Added renvela and calcitriol plan :s/p tunnelled catheter , hd today Indications for hemodialysis discussed in detail, risks and benefits. Kaden agrees to proceed. Also discussed likelihood renal function will not recover, need for AVF if staying on HD, peritoneal dialysis and renal transplant options. plan to do out pt HD at the hospital , untill medicare approved AND HD Chair set up Attestations 2 Medical Necessity Statement*: per medicine Coding Level of Care Code Acute Code for Chg Fwd Diagnoses Diabetic nephropathy E11.21
== END 2023-12-12 17:20 | disposition home or self-care (01) | DRG 637 ==
LOC: ER 04:27 → MEDSURG 05:28 → ICU 12-08 09:32 → MEDSURG 12-10 21:36
PROVIDERS: Internal Medicine; Surgery; Admitting Provider Internal Medicine; Emergency Provider Internal Medicine; Visit Provider Family Medicine
PROC: 0JH60XZ Insertion of Tunneled Vascular Access Device into Chest Subcutaneous Tissue and Fascia, Open Approach (ICD-10-PCS; principal; 2023-12-10 14:30)
DX: E10.10 Type 1 diabetes mellitus with ketoacidosis without coma (principal); G93.41 Metabolic encephalopathy; N18.6 End stage renal disease; I12.0 Hypertensive chronic kidney disease with stage 5 chronic kidney disease or end stage renal disease; N17.9 Acute kidney failure, unspecified; M62.82 Rhabdomyolysis; E10.22 Type 1 diabetes mellitus with diabetic chronic kidney disease; D63.1 Anemia in chronic kidney disease; F12.90 Cannabis use, unspecified, uncomplicated; E87.5 Hyperkalemia; I1A.0 Resistant hypertension
CPT/HCPCS: 36415; 36416; 36600; 51702; 71045; 74176; 77001; 80048; 80053; 80306; 81001; 82009; 82044; 82306; 82310; 82436; 82550; 82575; 82607; 82728; 82803; 82962; 83036; 83520; 83540; 83550; 83605; 83690; 83735; 83970; 84100; 84133; 84300; 84443; 85025; 85651; 85999; 86036; 86038; 86060; 86140; 86160; 86705; 86706; 86709; 86803; 87340; 87806; 90935; 93306; 96372; 96374; 96376; 99285; C1750; J0360; J0610; J0690; J1644; J1815; J2405; J2704; J2765; J3010; J7030; J7799; Q3014; Q4081

== ENCOUNTER 2023-12-14 09:14 | Outpatient (CLI) | payer SELFPAY ==
[2023-12-14 09:21] VITALS: BP 128/69; PULSE 65; RESP 16; TEMP 36.4; O2SAT 97
[2023-12-14 10:13] VITALS: BP 128/69; PULSE 65; RESP 16; TEMP 36.4
--- NOTE | 2023-12-14 10:14 | PC.HD ---
Heparin 1000 units loading dose administered via venous port of HD catheter at 0937 per copy cutter's orders. Electronic consent signed by patient.
--- NOTE | 2023-12-14 11:06 | PC.HD ---
Heparin 500 units maintenance dose administered via HD circuit at 1030 per tool chaser's orders.
--- NOTE | 2023-12-14 11:30 | PC.HD ---
Heparin 500 units maintenance dose adminsitered via HD circuit at 1130 per paper mill manager's orders.
[2023-12-14 12:54] VITALS: BP 114/75; PULSE 71; RESP 16; TEMP 36.6
--- NOTE | 2023-12-14 12:55 | PC.HD ---
At conclusion of treatment, heparin 2000 units and heparin 2100 units instilled into the arterial and venous catheter ports, respectively, per plumbing designer's orders.
== END 2023-12-14 12:45 | disposition home or self-care (01) ==
LOC: OPMS 09:16 → MEDSURG 09:16
PROVIDERS: Visit Provider Hospitalist
DX: N18.6 End stage renal disease (principal)
CPT/HCPCS: 90935

== ENCOUNTER → 2024-07-08 15:30 | Outpatient (BNVA) | payer MEDICARE, MEDICAID, SELFPAY | PROVIDERS: Visit Provider Podiatrist Foot & Ankle Surgery | DX: G62.9 Polyneuropathy, unspecified; E10.42 Type 1 diabetes mellitus with diabetic polyneuropathy; Z79.4 Long term (current) use of insulin | CPT/HCPCS: 99203 ==

== ENCOUNTER 2024-08-05 19:02 | Emergency (ER) | payer MEDICARE, MEDICAID, SELFPAY ==
[2024-08-05 19:11] VITALS: BP 131/68; PULSE 79; RESP 16; TEMP 36.5; O2SAT 100; BMI 22.4
[2024-08-05 19:15] LABS: Glucose Point of Care 350 mg/dL (70-110)
[2024-08-05 21:24] LABS: Ketone (Acetest) Serum Negative (Negative)
--- NOTE | 2024-08-05 21:26 | ED_ITS ---
HPI - Nausea/Vomiting/Diarrhea 2 General: Chief complaint: Nausea/Vomiting/Diarrhea Stated complaint: Vomiting\Body Aches Time Seen by Provider: 08/05/24 21:04 History of Present Illness: Patient presents with generic body aches and nausea vomiting since about 930 this morning. Patient is an insulin-dependent diabetic who does home hemodialysis. Patient says that by just aches all over probably from vomiting. He started off vomiting once an hour this morning and now it is anytime he puts anything in his mouth or stomach which could be every 5 minutes. Patient is never had a thing like this before. Patient denies any point abdominal pain. Patient said some of the vomitus looked like it had blood in it. Patient has no history of peptic ulcer disease, Related Data Home Medications Medication Instructions Recorded Confirmed amlodipine 10 mg tablet 10 mg PO DAILY 07/08/24 07/08/24 famotidine 20 mg tablet 20 mg PO DAILY 07/08/24 07/08/24 hydralazine 25 mg tablet 25 mg PO QID 07/08/24 07/08/24 lisinopril 40 mg tablet 40 mg PO DAILY 07/08/24 07/08/24 metoprolol tartrate 25 mg tablet 12.5 mg PO BID 07/08/24 07/08/24 Previous Rx's Medication Instructions Recorded glucometer testing kit #1 ea 12/12/23 insulin aspart U-100 100 unit/mL See Rx Instructions .Route 12/12/23 (3 mL) subcutaneous pen (Novolog .COMPLEX #30 mL FlexPen U-100 Insulin aspart) insulin glargine 100 unit/mL (3 See Rx Instructions .Route 12/12/23 mL) subcutaneous pen (Basaglar .COMPLEX #30 mL KwikPen U-100 Insulin) Diabetic shoes #1 ea 07/08/24 ondansetron HCl 4 mg tablet 4 mg PO Q8H PRN nausea and 08/06/24 vomiting #14 tabs Allergies Allergy/AdvReac Type Severity Reaction Status Date / Time No Known Allergies Allergy Verified 07/08/24 15:44 Review of Systems 2 General: Reports: 10 or more systems reviewed and unremarkable except in HPI and below PFSH ED 2 PFSH: Medical History Type 1 diabetes Social History (Reviewed 11/19/24 @ 21:27 by DAYDAY Sal[place] Smoking and tobacco/nicotine status: former use of tobacco/nicotine Substance/Drug Use: current Substance/Drug use frequency: few times a week Physical Exam 2 Const: COMMON NORMALS: no acute distress, average body habitus, patient oriented x3, no limitations, healthy appearing, alert and well nourished HENMT: COMMON NORMALS: normocephalic, atraumatic, hearing grossly normal bilaterally, external ears normal, Normal external nose present and moist oral mucous membranes HEAD & SCALP: normocephalic and atraumatic NOSE: Normal external nose present EXTERNAL EAR: Yes external ears normal Neck/C-Spine: COMMON NORMALS: full ROM, no lymphadenopathy, supple, no meningeal signs and no JVD Chest: COMMONS NORMALS: normal inspection of the chest and normal palpation of entire chest wall Resp: COMMON NORMALS: normal respiratory effort, No retractions, No use of accessory muscles and clear to auscultation bilaterally AUSCULTATION: clear to auscultation bilaterally Cardio: COMMON NORMALS: no JVD, regular rate, regular rhythm, S1 normal heart sound present, S2 normal heart sound present, No gallops present (Cardio), No clicks present (Cardio) and No rub (Cardio); negative for No murmurs present (Cardio) (2/6 to 3/6 systolic ejection murmur) RATE: regular rate RHYTHM: regular rhythm HEART SOUNDS: S1 normal heart sound present and S2 normal heart sound present GI: COMMON NORMALS: Normal to inspection, nondistended, normoactive bowel sounds present, Soft to palpation, non-tender, No hepatosplenomegaly present and no masses PALPATION: Yes Soft to palpation and Yes No hepatosplenomegaly present Neuro: COMMON NORMALS: patient oriented x3 SENSORIUM/ORIENTATION: Yes alert MENINGEAL SIGNS: Yes no meningeal signs Course 2 Vital Signs: Vital signs: Vital Signs Temperature 97.7 F 08/05/24 19:11 Pulse Rate 79 08/06/24 01:15 Respiratory Rate 18 08/05/24 23:18 Blood Pressure 138/65 08/06/24 01:15 Pulse Oximetry 95 08/06/24 01:15 Oxygen Delivery Me thod Room Air 08/05/24 23:48 MDM - Nausea/Vomiting/Diarrhea Medical Decision Making Lab work revealed white count 21,000, PT/INR benign, sodium 126, potassium 5.4, chloride 83, anion gap 33, carbon dioxide 15, BUN/creatinine 74 9.0, glucose 444 went down to 386, magnesium 3.0, patient is not had any vomiting since he was here and to receive Zofran. Patient received a liter normal saline, 10 units of IV insulin, calcium gluconate, and 40 of Pepcid, patient was feeling much better to the point he was sleeping soundly. I discussed these with his . And we will let the patient be discharged. Patient's said he is sodium is always up-and-down and he changed his dietary restrictions all the time due to his dialysis. Medical Records I reviewed the patient's medical records. Lab Data I reviewed the patient's lab results. 08/05/24 22:06 08/05/24 20:58 Laboratory Results WBC 21.74 10^3/uL (3.29-11.43) H 08/05/24 22:06 Corrected WBC Cancelled 08/05/24 20:58 RBC 4.29 10^6/uL (3.85-5.65) 08/05/24 22:06 Hgb 12.30 g/dL (11.27-16.99) 08/05/24 22:06 Hct 38.2 % (37-53) 08/05/24 22:06 MCV 89.0 fl (82-101) 08/05/24 22:06 MCH 28.7 pg (27-33) 08/05/24 22:06 MCHC 32.2 g/dL (30-55) 08/05/24 22:06 RDW 14.2 % (12.1-15.1) 08/05/24 22:06 Plt Count 161 10^3/cmm (157-399) 08/05/24 22:06 MPV 11.1 fL (7.4-10.4) H 08/05/24 22:06 Gran % Cancelled 08/05/24 20:58 Neut % (Auto) 87.4 % 08/05/24 22:06 Lymph % (Auto) 5.1 % 08/05/24 22:06 [place] % (Auto) 6.2 % 08/05/24 22:06 Eos % (Auto) 0.3 % 08/05/24 22:06 Baso % (Auto) 0.5 % 08/05/24 22:06 Neut # (Auto) 19.00 10^3/uL (1.8-7.7) H 08/05/24 22:06 Lymph # (Auto) 1.1 10^3/uL (0.8-4.8) 08/05/24 22:06 [place] # (Auto) 1.4 10^3/uL (0.2-0.9) H 08/05/24 22:06 Eos # (Auto) 0.1 10^3/uL (0.0-0.8) 08/05/24 22:06 Baso # (Auto) 0.1 10^3/uL (0.0-0.1) 08/05/24 22:06 Absolute Gran (auto) Cancelled 08/05/24 20:58 Nucleated RBC % (auto) 0 % 08/05/24 22:06 Nucleated RBCs # 0.0 /100WBC 08/05/24 22:06 PT 15.40 SECONDS (12.1-14.9) H 08/05/24 22:06 INR 1.18 (0.8-1.2) 08/05/24 22:06 Sodium 126 mmol/L (136-145) L 08/05/24 20:58 Potassium 5.4 mmol/L (3.5-5.1) H 08/05/24 20:58 Chloride 83 mmol/L (98-107) L 08/05/24 20:58 Carbon Dioxide 15 mmol/L (22-29) L 08/05/24 20:58 Anion Gap 33.4 (5-19) H 08/05/24 20:58 BUN 74 mg/dL (6-20) H 08/05/24 20:58 Creatinine 9.0 mg/dL (0.7-1.2) H* 08/05/24 20:58 GFR Calculation 6.8 mL/min (90-130) L 08/05/24 20:58 Glucose 444 mg/dL (65-115) H 08/05/24 20:58 POC Glucose 386 mg/dL (70-110) H 08/05/24 23:21 Calculated Osmolality 303 mOsm/kg (285-295) H 08/05/24 20:58 Lactic Acid 1.8 mmol/L (0.5-2.2) 08/05/24 22:06 Calcium 8.8 mg/dL (8.5-10.5) 08/05/24 20:58 Phosphorus 4.4 mg/dL (2.5-4.5) 08/05/24 22:06 Magnesium 3.0 mg/dL (1.7-2.3) H 08/05/24 20:58 Total Bilirubin 0.4 mg/dL (0.15-1.2) 08/05/24 20:58 AST 23 U/L (0-40) 08/05/24 20:58 ALT 15 U/L (0-41) 08/05/24 20:58 Alkaline Phosphatase 69 U/L (40-130) 08/05/24 20:58 Total Protein 7.1 g/dL (6.6-8.7) 08/05/24 20:58 Albumin 4.9 g/dL (3.5-5.2) 08/05/24 20:58 Globulin 2.2 g/dL (1.3-4.6) 08/05/24 20:58 Procalcitonin 0.42 ng/mL (0-0.5) 08/05/24 22:06 Serum Ketones Negative (Negative) 08/05/24 20:58 All radiology interpretation(s) finalized by discharge Discharge Plan Discharge Patient Disposition: Home Clinical Impression: Gastroenteritis, End stage renal disease on dialysis, Chronic hyponatremia Condition: Stable Prescriptions: New ondansetron HCl 4 mg tablet 4 mg PO Q8H PRN (Reason: nausea and vomiting) Qty: 14 0RF No Action lisinopril 40 mg tablet 40 mg PO DAILY hydralazine 25 mg tablet 25 mg PO QID metoprolol tartrate 25 mg tablet 12.5 mg PO BID amlodipine 10 mg tablet 10 mg PO DAILY famotidine 20 mg tablet 20 mg PO DAILY (DME) Diabetic shoes See Rx Instructions .Route .MEDSUPPLY Qty: 1 0RF Rx Instructions: 3 pairs of inserts DME is (HOME) Basaglar KwikPen U-100 Insulin 100 unit/mL (3 mL) insulin pen See Rx Instructions .ROUTE .COMPLEX Qty: 30 0RF Rx Instructions: Inject 10 units subcut QAM and 20 units subcut QPM Novolog FlexPen U-100 Insulin 100 unit/mL (3 mL) insulin pen See Rx Instructions .ROUTE .COMPLEX MDD 45 Qty: 30 0RF Rx Instructions: Inject, subcut, 3 times daily, after meals, based on sliding scale provided (DME) glucometer testing kit See Rx Instructions .Route .MEDSUPPLY Qty: 1 0RF Rx Instructions: Glucometer testing kit Lancets #100, strips #100 Discharge Orders: Discharge ED (Routine); Ordered 08/06/24 Ordered By: Fidel Fishman Referrals: Ko Crabtree MD [Primary Care Provider] - 1 week Patient Instructions: Hyponatremia (ED), Acute Nausea and Vomiting (ED) Activity Restrictions/Additional Instructions: Thank you for choosing [facility] for your healthcare needs today. Please realize that you were seen in the emergency department and that we are providing you with an emergency medical screening exam and this may not be a complete and all exclusive of all testing and/or medical workup we may need to determine your element or severity of your illness. It is very important that you follow-up as instructed with your primary care provider or specialist for the additional evaluation and to discuss your medical treatment plan. You may return to the emergency department should you have concerns or if your condition changes or worsens in any way. Coding Level of Care Code ED Sap Basis Architect for Joaquin Jones
[2024-08-05 21:31] LABS: Alanine Aminotransferase 15 U/L (0-41); Albumin Level 4.9 g/dL (3.5-5.2); Alkaline Phosphatase 69 U/L (40-130); Blood Urea Nitrogen 74 mg/dL (6-20); Calcium 8.8 mg/dL (8.5-10.5); Carbon Dioxide 15 mmol/L (22-29); Chloride 83 mmol/L (98-107); Creatinine Clr Calc Pharmacy 12.5134; Globulin 2.2 g/dL (1.3-4.6); Glomerular Filtration Rate 6.8 mL/min (90-130); Glucose 444 mg/dL (65-115); Osmolality Calculated 303 mOsm/kg (285-295); Sodium 126 mmol/L (136-145); Total Bilirubin 0.4 mg/dL (0.15-1.2); Total Protein 7.1 g/dL (6.6-8.7)
[2024-08-05 21:37] LABS: Anion Gap 33.4 (5-19); Aspartate Amino Transferase 23 U/L (0-40); Potassium 5.4 mmol/L (3.5-5.1)
[2024-08-05 22:17] LABS: Basophils # 0.1 10^3/uL (0.0-0.1); Basophils % 0.5 %; Eosinophils # 0.1 10^3/uL (0.0-0.8); Eosinophils % 0.3 %; Hematocrit 38.2 % (37-53); Lymphocytes # 1.1 10^3/uL (0.8-4.8); Lymphocytes % 5.1 %; Mean Corpuscular HGB Conc 32.2 g/dL (30-55); Mean Corpuscular Hemoglobin 28.7 pg (27-33); Mean Platelet Volume 11.1 fL (7.4-10.4); Monocytes # 1.4 10^3/uL (0.2-0.9); Monocytes % 6.2 %; Neutrophils % 87.4 %; Nucleated Red Blood Cells % 0 %; Platelet Count 161 10^3/cmm (157-399); Red Blood Count 4.29 10^6/uL (3.85-5.65); Red Cell Distribution Width 14.2 % (12.1-15.1); White Blood Count 21.74 10^3/uL (3.29-11.43)
[2024-08-05] MEDS: ondansetron 2 mg/ML SDV 2 mL 8 MG IVP (22:17)
[2024-08-05] MEDS: sodium chloride 0.9% 1,000 ML 999 ML IV (22:17)
[2024-08-05] MEDS: insulin regular-human 100 units/1 mL 10 UNIT IVP (22:24)
[2024-08-05 22:30] LABS: INR 1.18 (0.8-1.2)
[2024-08-05 22:34] LABS: Phosphorus 4.4 mg/dL (2.5-4.5)
[2024-08-05] MEDS: calcium gluconate 0.1 gm/mL 10% SDV 10mL 1 GM IVP (22:36)
[2024-08-05 22:38] LABS: Lactic Sepsis W/Reflex 1.8 mmol/L (0.5-2.2)
--- NOTE | 2024-08-05 22:44 | ECG_ITS ---
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
[2024-08-05 22:48] VITALS: PULSE 84; RESP 16; O2SAT 97
[2024-08-05 23:18] VITALS: BP 148/69; PULSE 87; RESP 18; O2SAT 95
[2024-08-05 23:23] LABS: Procalcitonin 0.42 ng/mL (0-0.5)
[2024-08-05] MEDS: famotidine 20 mg Tablet 40 MG PO (23:23)
[2024-08-05 23:26] LABS: Glucose Point of Care 386 mg/dL (70-110)
[2024-08-05 23:48] VITALS: BP 142/71; PULSE 81; O2SAT 93
[2024-08-06 01:15] VITALS: BP 138/65; PULSE 79; O2SAT 95
== END 2024-08-06 01:20 | disposition home or self-care (01) ==
PROVIDERS: Emergency Provider Emergency Medicine; PCP Family Medicine
DX: K52.9 Noninfective gastroenteritis and colitis, unspecified (principal); E10.22 Type 1 diabetes mellitus with diabetic chronic kidney disease; N18.6 End stage renal disease; Z99.2 Dependence on renal dialysis; Z79.4 Long term (current) use of insulin
CPT/HCPCS: 36415; 36416; 80053; 82009; 82962; 83605; 83735; 84100; 84145; 85025; 85610; 93005; 96361; 96374; 96375; 99284; J0612; J1815; J2405; J7030

== ENCOUNTER 2024-09-11 10:32 | Inpatient (IN) | payer MEDICARE, MEDICAID, SELFPAY ==
[2024-09-11] VITALS (11 sets, daily range): BP systolic 150–193; BP diastolic 66–96; PULSE 69–96; RESP 16–20; TEMP 36.7–37.2; O2SAT 92–99; BMI 22.4
--- NOTE | 2024-09-11 10:50 | ED_ITS ---
HPI - GI Bleed 2 General: Chief complaint: GI Bleed Stated complaint: vomiting Time Seen by Provider: 09/11/24 10:36 Source: patient Mode of arrival: ambulatory Limitations: no limitations History of Present Illness: 34-year-old male with history of type 1 diabetes also is on dialysis states he does home hemodialysis every other day states he had missed his dialysis yesterday states today has been having vomiting. He states he had multiple episodes of vomit has been able tolerate anything p.o. has had some coffee- ground emesis no history of GI bleed denies any blood in his stool. He denies any fevers. Associated symptoms: Reports nausea and vomiting; Denies abdominal pain, chills, fever(s), headache(s) or rash Related Data Home Medications Medication Instructions Recorded Confirmed amlodipine 10 mg tablet 10 mg PO DAILY 07/08/24 09/11/24 famotidine 20 mg tablet 20 mg PO DAILY PRN Acid Reflux 07/08/24 09/11/24 hydralazine 25 mg tablet 25 mg PO QID 07/08/24 09/11/24 metoprolol tartrate 25 mg tablet 25 mg PO BID 07/08/24 09/11/24 calcitriol 0.5 mcg capsule 0.5 mcg PO DAILY 09/11/24 09/11/24 carvedilol 25 mg tablet 25 mg PO BID 09/11/24 09/11/24 clonidine HCl 0.1 mg tablet 0.1 mg PO BID 09/11/24 09/11/24 ergocalciferol (vitamin D2) 1,250 1,250 mcg PO Q7D 09/11/24 09/11/24 mcg (50,000 unit) capsule (Vitamin D2) gentamicin 0.1 % topical cream See Rx Instructions .Route .COMPLEX 09/11/24 09/11/24 glucagon 3 mg/actuation nasal 3 mg intranasal PRN PRN low bs 09/11/24 09/11/24 spray (Baqsimi) insulin aspart 5 unit SUBCUT TID 09/11/24 09/11/24 (niacinamide)(U-100) 100 unit/mL(3 mL) subcutaneous pen (Fiasp FlexTouch U-100 Insulin) insulin glargine-yfgn 100 unit/mL 22 unit SUBCUT BEDTIME 09/11/24 09/11/24 (3 mL) subcutaneous pen (Semglee (insulin glargine-yfgn) Pen) lidocaine-prilocaine 2.5 %-2.5 % See Rx Instructions .Route .COMPLEX 09/11/24 09/11/24 topical cream lisinopril 20 mg tablet 20 mg PO BID 09/11/24 09/11/24 sevelamer carbonate 800 mg tablet 800 mg PO QID 09/11/24 09/11/24 sodium bicarbonate 650 mg tablet 650 mg PO BID 09/11/24 09/11/24 vit B,C-folic ac 800 mcg-zinc 12.5 1 tab PO QPM 09/11/24 09/11/24 mg-selen-D3 2,000 unit-vit E tablet (RenaPlex-D) Previous Rx's Medication Instructions Recorded glucometer testing kit #1 ea 12/12/23 Diabetic shoes #1 ea 07/08/24 ondansetron HCl 4 mg tablet 4 mg PO Q8H PRN nausea and 08/06/24 vomiting #14 tabs Allergies Allergy/AdvReac Type Severity Reaction Status Date / Time No Known Allergies Allergy Verified 09/11/24 10:50 Review of Systems 2 Const: Denies: fever(s), chills, body aches or change in appetite ENMT: Denies: throat pain or dental pain Card: Denies: chest pain Resp: Denies: dyspnea GI: Reports: nausea and vomiting; Denies: abdominal pain or diarrhea : Denies: dysuria Musc: Denies: neck pain or back pain Skin/Breast: Denies: rash Neuro: Denies: headache(s) PFSH ED 2 PFSH: Medical History Type 1 diabetes Social History Smoking and tobacco/nicotine status: former use of tobacco/nicotine Substance/Drug Use: current Substance/Drug use frequency: few times a week Physical Exam 2 Const: COMMON NORMALS: patient oriented x3 HENMT: COMMON NORMALS: normocephalic and atraumatic HEAD & SCALP: n ormocephalic and atraumatic Eye: COMMON NORMALS: Equal, round and reactive pupils present and EOMs intact bilaterally PUPIL: Yes Equal, round and reactive pupils present Neck/C-Spine: COMMON NORMALS: full ROM and supple Chest: COMMONS NORMALS: normal inspection of the chest and normal palpation of entire chest wall Resp: COMMON NORMALS: normal respiratory effort, No retractions, No use of accessory muscles and clear to auscultation bilaterally AUSCULTATION: clear to auscultation bilaterally Cardio: COMMON NORMALS: regular rate, regular rhythm and No murmurs present (Cardio) RATE: regular rate RHYTHM: regular rhythm GI: COMMON NORMALS: Normal to inspection, nondistended, normoactive bowel sounds present, Soft to palpation, non-tender and no masses PALPATION: Yes Soft to palpation Extremity: COMMON NORMALS: normal to inspection and full ROM Neuro: COMMON NORMALS: patient oriented x3, moves all extremities and no focal motor deficits Psych: COMMON NORMALS: mental status grossly normal, Normal thought process present and cooperative THOUGHT PROCESS: Normal thought process present Skin: COMMON NORMALS: no rashes or lesions noted and no wounds GENERAL SKIN EXAM: no rashes or lesions noted Course 2 Vital Signs: Vital signs: Vital Signs Temperature 98.5 F 09/11/24 10:46 Pulse Rate 77 09/11/24 13:35 Respiratory Rate 16 09/11/24 13:35 Blood Pressure 167/66 09/11/24 13:35 Pulse Oximetry 93 09/11/24 13:35 Oxygen Delivery Me thod Room Air 09/11/24 13:35 MDM - GI Bleed Medical Decision Making Patient presents here with vomiting he is dehydrated here with anion gap no signs of being in DKA CT showed a gastritis he has no signs of any significant bleeding did give him a bolus Reglan Benadryl he feels improved still appears dehydrated I spoke to hospitalist will admit at this time. Medical Records I reviewed the patient's medical records. Lab Data I reviewed the patient's lab results. 09/11/24 11:26 09/11/24 11:26 Radiology Impressions Abdomen/Pelvis CT 09/11/24 12:37 IMPRESSION: 1. No free air or ascites. 2. Mild small bowel wall thickening and edema. Most likely viral enteritis. No obstructive pattern. 3. No renal obstruction. 4. Mild atherosclerosis abdominal aorta. Laboratory Results WBC 17.02 10^3/uL (3.29-11.43) H 09/11/24 11:26 RBC 4.19 10^6/uL (3.85-5.65) 09/11/24 11: Hgb 11.80 g/dL (11.27-16.99) 09/11/24 11: Hct 36.5 % (37-53) L 09/11/24 11: MCV 87.1 fl (82-101) 09/11/24 11: MCH 28.2 pg (27-33) 09/11/24 11: MCHC 32.3 g/dL (30-55) 09/11/24 11: RDW 14.5 % (12.1-15.1) 09/11/24 11: Plt Count 214 10^3/cmm (157-399) 09/11/24 11: MPV 10.6 fL (7.4-10.4) H 09/11/24 11: Neut % (Auto) 88.0 % 09/11/24 11: Lymph % (Auto) 6.4 % 09/11/24 11: [place] % (Auto) 4.6 % 09/11/24 11:26 Eos % (Auto) 0.0 % 09/11/24 11: Baso % (Auto) 0.4 % 09/11/24 11: Neut # (Auto) 14.98 10^3/uL (1.8-7.7) H 09/11/24 11: Lymph # (Auto) 1.1 10^3/uL (0.8-4.8) 09/11/24 11: [place] # (Auto) 0.8 10^3/uL (0.2-0.9) 09/11/24 11: Eos # (Auto) 0.0 10^3/uL (0.0-0.8) 09/11/24 11: Baso # (Auto) 0.1 10^3/uL (0.0-0.1) 09/11/24 11: Nucleated RBC % (auto) 0 % 09/11/24 11: Nucleated RBCs # 0.0 /100WBC 09/11/24 11:26 Specimen Type Arterial 09/11/24 10:55 Sample Site Radial, right 09/11/24 10:55 ABG pH 7.46 (7.35-7.45) H 09/11/24 10:55 ABG pCO2 39.6 mmHg (35-45) 09/11/24 10:55 ABG pO2 63.9 mmHg (80.0-100.0) L 09/11/24 10:55 ABG PO2/FiO2 Ratio 304 09/11/24 10:55 ABG HCO3 28.0 mmol/L (22-26) H 09/11/24 10:55 ABG O2 Saturation 93.8 09/11/24 10:55 ABG Base Excess 3.9 mmol/L (-2.0-2.0) H 09/11/24 10:55 Braulio Test Pos 09/11/24 10:55 A-a O2 Gradient 4.8 mmHg (5-10) L 09/11/24 10:55 Hematocrit 36.1 % (42-52) L 09/11/24 10:55 Hgb O2 Saturation 91.9 % (95-100) L 09/11/24 10:55 Carboxyhemoglobin 0.9 %THgb (0.4-20.1) 09/11/24 10:55 Methemoglobin 1.2 % (0.4-1.5) 09/11/24 10:55 Total Hemoglobin 11.8 g/dL (14-18) L 09/11/24 10:55 Sodium 141.0 mmol/L (131-143) 09/11/24 10:55 Potassium 3.7 mmol/L (3.5-5.0) 09/11/24 10:55 Glucose 194.0 mg/dL (70-115) H 09/11/24 10:55 Ionized Calcium 1.1 mmol/L (1.1-1.4) 09/11/24 10:55 O2 Delivery Device Room air 09/11/24 10:55 FiO2 21.0 % 09/11/24 10:55 Snow Plow Operator ID [place] 09/11/24 10:55 Sodium 137 mmol/L (136-145) 09/11/24 11:26 Potassium 3.9 mmol/L (3.5-5.1) 09/11/24 11:26 Chloride 87 mmol/L (98-107) L 09/11/24 11:26 Carbon Dioxide 26 mmol/L (22-29) 09/11/24 11:26 Anion Gap 27.9 (5-19) H 09/11/24 11:26 BUN 80 mg/dL (6-20) H 09/11/24 11:26 Creatinine 12.2 mg/dL (0.7-1.2) H* 09/11/24 11:26 GFR Calculation 4.8 mL/min (90-130) L 09/11/24 11:26 Glucose 196 mg/dL (65-115) H 09/11/24 11:26 Calculated Osmolality 313 mOsm/kg (285-295) H 09/11/24 11:26 Calcium 9.8 mg/dL (8.5-10.5) 09/11/24 11:26 Total Bilirubin 0.2 mg/dL (0.15-1.2) 09/11/24 11: AST 18 U/L (0-40) 09/11/24 11: ALT 16 U/L (0-41) 09/11/24 11:26 Alkaline Phosphatase 67 U/L (40-130) 09/11/24 11:26 Total Protein 7.9 g/dL (6.6-8.7) 09/11/24 11:26 Albumin 4.6 g/dL (3.5-5.2) 09/11/24 11: Globulin 3.3 g/dL (1.3-4.6) 09/11/24 11: Lipase 14 U/L (13-60) 09/11/24 11: Amorphous Sediment Not Reportable 09/11/24 14:10 Gastric Occult Blood Positive (Negative) H 09/11/24 12:16 Serum Ketones Negative (Negative) 09/11/24 11:26 All radiology interpretation(s) finalized by discharge EKG Data EKG 1: I personally reviewed and interpreted this EKG as follows: EKG interpretation date: 09/11/24 EKG interpretation time: 10:59 Interpretation: nsr hr [address] elevation qrs 109 [id number] Discharge Plan Discharge Patient Disposition: Admitted As Inpatient Clinical Impression: Intractable vomiting, Dehydration, ESRD (end stage renal disease) on dialysis Condition: Stable Prescriptions: No Action hydralazine 25 mg tablet 25 mg PO QID metoprolol tartrate 25 mg tablet 25 mg PO BID amlodipine 10 mg tablet 10 mg PO DAILY famotidine 20 mg tablet 20 mg PO DAILY PRN (Reason: Acid Reflux) (DME) Diabetic shoes See Rx Instructions .Route .MEDSUPPLY Qty: 1 0RF Rx Instructions: 3 pairs of inserts DME is (HOME) (DME) glucometer testing kit See Rx Instructions .Route .MEDSUPPLY Qty: 1 0RF Rx Instructions: Glucometer testing kit Lancets #100, strips #100 lisinopril 20 mg tablet 20 mg PO BID carvedilol 25 mg tablet 25 mg PO BID clonidine HCl 0.1 mg tablet 0.1 mg PO BID lidocaine-prilocaine 2.5-2.5 % cream See Rx Instructions .ROUTE .COMPLEX Rx Instructions: APPLY SMALL AMOUNT TO ACCESS SITE (AVF) 1 TO 2 HOURS BEFORE DIALYSIS. COVER WITH OCCLUSIVE DRESSING (SARAN WRAP). sodium bicarbonate 650 mg tablet 650 mg PO BID calcitriol 0.5 mcg capsule 0.5 mcg PO DAILY gentamicin 0.1 % cream See Rx Instructions .ROUTE .COMPLEX Rx Instructions: 1 applic topically to exit site every treatment. ergocalciferol (vitamin D2) [Vitamin D2] 1,250 mcg (50,000 unit) capsule 1,250 mcg PO Q7D sevelamer carbonate 800 mg tablet 800 mg PO QID Fiasp FlexTouch U-100 Insulin 100 unit/mL (3 mL) insulin pen 5 unit SUBCUT TID MDD 15 units RenaPlex-D 800 mcg-12.5 mg -2,000 unit tablet 1 tab PO QPM Baqsimi 3 mg/actuation spray,non-aerosol 3 mg INTRANASAL PRN PRN (Reason: low bs) insulin glargine-yfgn [Semglee(insulin glarg-yfgn)Pen] 100 unit/mL (3 mL) insulin pen 22 unit SUBCUT BEDTIME ondansetron HCl 4 mg tablet 4 mg PO Q8H PRN (Reason: nausea and vomiting) Qty: 14 0RF Referrals: Ko Crabtree MD [Primary Care Provider] - Coding Level of Care Code ED Human Services Instructor for Jonathang Robert
--- NOTE | 2024-09-11 10:51 | ECG_ITS ---
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 Measurements Intervals [place] Rate: 79 P: 71 MD: 148 QRS: 17 QRSD: 109 T: 52 QT: 407 QTc: 467 Interpretive Statements SINUS RHYTHM Compared to ECG 08/05/2024 22:44:18 No significant changes Electronically Signed On 09-12-2024 18:34:52 CHURCH SECRETARY by Neo Onofre M.D. [id number]
[2024-09-11 11:06] LABS: ABG PCO2 39.6 mmHg (35-45); ABG PH Result 7.46 (7.35-7.45); Alveolar-Arterial Oxygen Gradi 4.8 mmHg (5-10); Arterial Blood Gas Hematocrit 36.1 % (42-52); Base Excess ABG 3.9 mmol/L (-2.0-2.0); Blood Gas Allen Test Pos; Blood Gas Operator Identificat WALCI; Blood Gas Sample Site Radial, right; Blood Gas Sample Type Arterial; Carboxyhemoglobin 0.9 %THgb (0.4-20.1); HGB O2 Sat 91.9 % (95-100); Ionized Calcium Level - ABG 1.1 mmol/L (1.1-1.4); Methemoglobin 1.2 % (0.4-1.5); Oxygen Device ROOM AIR; Oxygen Saturation ABG 93.8; PO2 ABG 63.9 mmHg (80.0-100.0); PO2 FiO2 Ratio Arterial Blood 304; Potassium Level - ABG 3.7 mmol/L (3.5-5.0); Total Hemoglobin 11.8 g/dL (14-18)
[2024-09-11 11:35] LABS: Basophils # 0.1 10^3/uL (0.0-0.1); Basophils % 0.4 %; Hematocrit 36.5 % (37-53); Lymphocytes # 1.1 10^3/uL (0.8-4.8); Lymphocytes % 6.4 %; Mean Corpuscular HGB Conc 32.3 g/dL (30-55); Mean Corpuscular Hemoglobin 28.2 pg (27-33); Mean Corpuscular Volume 87.1 fl (82-101); Mean Platelet Volume 10.6 fL (7.4-10.4); Monocytes # 0.8 10^3/uL (0.2-0.9); Monocytes % 4.6 %; Neutrophils # 14.98 10^3/uL (1.8-7.7); Nucleated Red Blood Cells % 0 %; Platelet Count 214 10^3/cmm (157-399); Red Blood Count 4.19 10^6/uL (3.85-5.65); Red Cell Distribution Width 14.5 % (12.1-15.1); White Blood Count 17.02 10^3/uL (3.29-11.43)
[2024-09-11] MEDS: metoclopramide 5 mg/mL SDV 2 mL 10 MG IVP (11:35)
[2024-09-11] MEDS: diphenhydrAMINE 50 mg/mL SDV 1mL IVP (11:35)
--- NOTE | 2024-09-11 11:40 | PC.PHAR ---
Pt gets most medications through [employer]. Verified insulins with Jamir QUEEN
[2024-09-11 11:50] LABS: Ketone (Acetest) Serum Negative (Negative)
[2024-09-11 11:53] LABS: Alanine Aminotransferase 16 U/L (0-41); Albumin Level 4.6 g/dL (3.5-5.2); Alkaline Phosphatase 67 U/L (40-130); Anion Gap 27.9 (5-19); Aspartate Amino Transferase 18 U/L (0-40); Blood Urea Nitrogen 80 mg/dL (6-20); Calcium 9.8 mg/dL (8.5-10.5); Carbon Dioxide 26 mmol/L (22-29); Chloride 87 mmol/L (98-107); Creatinine Clr Calc Pharmacy 9.2312; Globulin 3.3 g/dL (1.3-4.6); Glomerular Filtration Rate 4.8 mL/min (90-130); Glucose 196 mg/dL (65-115); Lipase 14 U/L (13-60); Osmolality Calculated 313 mOsm/kg (285-295); Potassium 3.9 mmol/L (3.5-5.1); Sodium 137 mmol/L (136-145); Total Bilirubin 0.2 mg/dL (0.15-1.2); Total Protein 7.9 g/dL (6.6-8.7)
[2024-09-11] MEDS: sodium chloride 0.9% 500 ML 999 ML IV (12:04)
[2024-09-11 12:33] LABS: Gastricult Occult Blood Positive (Negative)
--- NOTE | 2024-09-11 12:37 | CT_ITS ---
WS: [id number] CT ABDOMEN AND PELVIS WITH CONTRAST HISTORY: abdpain/ vomiting TECHNIQUE: Imaging performed of the abdomen and pelvis with IV contrast. Single phase imaging of the abdomen. Coronal and sagittal reformats are submitted. All CT scans at [facility] use at [address] one of these dose optimization techniques: automated exposure control; mA and/or kV adjustment per patient size (includes targeted exams where dose is matched to clinical indication); or iterative re construction. IV CONTRAST: Omnipaque 350; 100 mL IV. Oral contrast: No DLP: 388.33 mGy.cm COMPARISON: None available. Lower thorax: Lung bases are clear. Heart is normal size. Mild distal esophageal edema. May be from r ecent vomiting. Liver/biliary system: Normal size with no intrahepatic dilatation. Gallbladder: Normal. No gallstones or wall thickening. No pericholecystic fluid. Pancreas: Normal size pancreas and pancreatic duct. No adjacent inflammation. Spleen: Normal size spleen. No mass or infarct. Adrenal glands: Normal. Right kidney: Normal. Left kidney: Normal. Aorta: Mild atherosclerosis with no aneurysm. Lymphadenopathy: None. Free fluid: None. GI tract: Moderate fluid distention of the stomach. Mild small bowel wall prominence. No obstructive pattern. There is no ascites. Normal colon. Abdominal wall: Unremarkable abdominal wall. No hernia. Pelvis: No free fluid or adenopathy within the pelvis. Nondistended bladder. Bones: Unremarkable. CT/CT abdomen pelvis w con* [id number] IMPRESSION: 1. No free air or ascites. 2. Mild small bowel wall thickening and edema. Most likely viral enteritis. No obstructive pattern. 3. No renal obstruction. 4. Mild atherosclerosis abdominal aorta.
[2024-09-11] MEDS: iohexol 350 mg/mL 500 mL Btl (per mL) IV (13:08)
[2024-09-11] MEDS: pantoprazole 40 mg SDV 80 MG IVP (13:14)
[2024-09-11] MEDS: hyDRALAzine 20 mg/mL INJ 1 mL 10 MG IVP (13:15)
[2024-09-11] MEDS: ondansetron 2 mg/ML SDV 2 mL 4 MG IVP (13:15)
[2024-09-11] MEDS: LORazepam 2 mg/mL INJ 1 mL 1 MG IVP (13:15)
[2024-09-11 14:31] LABS: Bilirubin Urine Negative (Negative); Blood Urine Negative (Negative); Glucose Urine UA Trace (Normal); Ketones Urine Trace (Negative); Leukocyte Esterase Urine Negative (Negative); Nitrate Urine Negative (Negative); Protein Urine 3+ (Negative); Specific Gravity, Urine 1.019 (1.005-1.030); Urine Appearance Clear (CLEAR); Urine Color Yellow (Yellow); Urobilinogen Urine 0.2 mg/dL (Negative); pH Urine 7.5 (5-7)
[2024-09-11 14:33] LABS: Add Urine Microscopic? YES; Bacteria Urine None Seen /hpf; Hyaline Casts Urine 0.81 /lpf; RBC Urine 0-2 /hpf (0-2); Squamous Epithelial Cell Urine 0-5 /hpf (0-5); WBC Urine 0-5 /hpf (0-5)
--- NOTE | 2024-09-11 15:16 | P.HP_ITS ---
Providers/Chief Complaint 2 Admitting Physician: Marv Rodriguez MD Primary Care Provider: Ko Crabtree MD Chief Complaint: vomiting History of Present Illness Kaden Lozano is a 34 year old male with a past medical history of end-stage renal disease on hemodialysis, history of type 1 diabetes, who presents [facility] due to nausea, vomiting, diarrhea, abdominal pain, coffee-ground emesis for the last 24 hours. Patient tells me the last 24 hours, he has had flulike symptoms, sinus congestion, associate with nausea, vomiting, diarrhea, diffuse abdominal pain, does report coffee-ground emesis. In the emergency room he was noted to have coffee-ground emesis, Gastroccult positive, no sick contacts, no recent travel, he missed hemodialysis yesterday, in the emergency room he is anion gap was 27.9, bicarb is 26, his serum ketones is negative, pH is within normal limits, CT abdomen pelvis shows mild small bowel wall thickening and edema, he is hypertensive in the emergency room, he tells me he has not taken his blood pressure medication due to nausea vomiting, hemoglobin 11.8 Review of Systems 2 Const: Reports: chills, fatigue and malaise Card: Denies: chest pain Resp: Denies: dyspnea GI: Reports: abdominal pain, nausea, vomiting, coffee ground emesis and diarrhea : Denies: flank pain Medications/Allergies Home Medications Medication Instructions Recorded Confirmed Last Taken Type glucometer testing kit #1 ea 12/12/23 09/11/24 Unknown Rx Diabetic shoes #1 ea 07/08/24 09/11/24 Unknown Rx amlodipine 10 mg tablet 10 mg PO DAILY 07/08/24 09/11/24 09/10/24 History famotidine 20 mg tablet 20 mg PO DAILY PRN Acid Reflux 07/08/24 09/11/24 09/10/24 History hydralazine 25 mg tablet 25 mg PO QID 07/08/24 09/11/24 09/10/24 History metoprolol tartrate 25 mg tablet 25 mg PO BID 07/08/24 09/11/24 09/10/24 History ondansetron HCl 4 mg tablet 4 mg PO Q8H PRN nausea and 08/06/24 09/11/24 Unknown Rx vomiting #14 tabs calcitriol 0.5 mcg capsule 0.5 mcg PO DAILY 09/11/24 09/11/24 09/10/24 History carvedilol 25 mg tablet 25 mg PO BID 09/11/24 09/11/24 09/10/24 History clonidine HCl 0.1 mg tablet 0.1 mg PO BID 09/11/24 09/11/24 09/10/24 History ergocalciferol (vitamin D2) 1,250 1,250 mcg PO Q7D 09/11/24 09/11/24 Unknown History mcg (50,000 unit) capsule (Vitamin D2) gentamicin 0.1 % topical cream See Rx Instructions .Route .COMPLEX 09/11/24 09/11/24 Unknown History glucagon 3 mg/actuation nasal 3 mg intranasal PRN PRN low bs 09/11/24 09/11/24 Unknown History spray (Baqsimi) insulin aspart 5 unit SUBCUT TID 09/11/24 09/11/24 09/10/24 History (niacinamide)(U-100) 100 unit/mL(3 mL) subcutaneous pen (Fiasp FlexTouch U-100 Insulin) insulin glargine-yfgn 100 unit/mL 22 unit SUBCUT BEDTIME 09/11/24 09/11/24 09/10/24 History (3 mL) subcutaneous pen (Semglee (insulin glargine-yfgn) Pen) lidocaine-prilocaine 2.5 %-2.5 % See Rx Instructions .Route .COMPLEX 09/11/24 09/11/24 Unknown History topical cream lisinopril 20 mg tablet 20 mg PO BID 09/11/24 09/11/24 09/10/24 History sevelamer carbonate 800 mg tablet 800 mg PO QID 09/11/24 09/11/24 09/10/24 History sodium bicarbonate 650 mg tablet 650 mg PO BID 09/11/24 09/11/24 09/10/24 History vit B,C-folic ac 800 mcg-zinc 12.5 1 tab PO QPM 09/11/24 09/11/24 09/10/24 History mg-selen-D3 2,000 unit-vit E tablet (RenaPlex-D) Allergies Allergy/AdvReac Type Severity Reaction Status Date / Time No Known Allergies Allergy Verified 09/11/24 10:50 PFSH Acute 2 PFSH: Medical History Type 1 diabetes Social History Smoking and tobacco/nicotine status: former use of tobacco/nicotine Substance/Drug Use: current Substance/Drug use frequency: few times a week Vitals/I&O/Wt Last Vital Signs Temp 98.5 F 09/11/24 10:46 Pulse 77 09/11/24 13:35 Resp 16 09/11/24 13:35 BP 167/66 09/11/24 13:35 Pulse Ox 93 09/11/24 13:35 O2 Del Method Room Air 09/11/24 13:35 Weight last 48 hrs Weight 74.843 kg Physical Exam 2 Const: COMMON NORMALS: no acute distress and patient oriented x3 Eye: COMMON NORMALS: Equal, round and reactive pupils present Resp: COMMON NORMALS: normal respiratory effort, No retractions, No use of accessory muscles and clear to auscultation bilaterally AUSCULTATION: clear to auscultation bilaterally Cardio: COMMON NORMALS: regular rate, regular rhythm, S1 normal heart sound present and S2 normal heart sound present RATE: regular rate RHYTHM: r egular rhythm HEART SOUNDS: S1 normal heart sound present and S2 normal heart sound present GI: COMMON NORMALS: Normal to inspection, nondistended, normoactive bowel sounds present and Soft to palpation OTHER: Diffuse abdominal tenderness to palpation Extremity: COMMON NORMALS: no pedal edema Neuro: COMMON NORMALS: patient oriented x3 Data 09/11/24 11:26 09/11/24 11:26 A&P Assessment and plan (1) Viral gastroenteritis: (2) Intractable nausea and vomiting: (3) Coffee ground emesis: (4) Hypertension, uncontrolled: (5) Type 1 diabetes: (6) ESRD (end stage renal disease) on dialysis: (7) Dehydration: Plan Coffee-ground emesis # Likely from retching, nausea, vomiting ? However cannot rule out upper GI bleed for Nancy-Will tear ? Monitor hemoglobins every 6 hours # Nausea control with Zofran, Reglan ? Protonix, Carafate ? N.p.o. # Monitor clinical status closely Intractable, nausea, vomiting ? Nausea control Viral gastroenteritis, dehydration ? IV fluids Leukocytosis, CRP, Pro-Asael, sed rate, blood cultures, chest x-ray, UA Type 1 diabetes ? Serum ketones negative, pH 7.46, bicarb 26, anion gap 27.9 ? No significant evidence of diabetic ketoacidosis # Monitor closely -IV fluids # Low-dose sliding scale End-stage renal disease, missed dialysis, plan on dialysis today Attestations 2 Medical Necessity Statement*: Patient requires hospitalization, outpatient observation, for coffee-ground emesis, tractable nausea vomiting, viral gastroenteritis, leukocytosis, end- stage renal disease missed dialysis Diagnoses Viral gastroenteritis A08.4 Intractable nausea and vomiting R11.2 Coffee ground emesis K92.0 Hypertension, uncontrolled I10 Type 1 diabetes E10.9 ESRD (end stage renal disease) on dialysis N18.6; Z99.2 Dehydration E86.0
[2024-09-11 15:38] LABS: Procalcitonin 1.23 ng/mL (0-0.5)
[2024-09-11 15:47] LABS: Influenza A NEGATIVE (Negative); Influenza B NEGATIVE (Negative); Respiratory Syncytial Virus Ce POSITIVE (Negative)
[2024-09-11 15:59] LABS: Covid PCR Positive (Negative)
--- NOTE | 2024-09-11 16:28 | XRR_ITS ---
PROCEDURE INFORMATION: Exam: XR Chest Exam date and time: 09/11/2024 5:26 PM Age: 34 years old Clinical indication: Dyspnea; Additional info: SOB, covid +, coughing up blood TECHNIQUE: Imaging protocol: Radiologic exam of the chest. Views: 1 view. COMPARISON: CR XR chest 1V portable [id number] 12/10/2023 3:38 PM FINDINGS: Tubes, catheters and devices: Stable dual lumen right-sided central venous catheter. Lungs: Unremarkable. No consolidation. Pleural spaces: Unremarkable. No pleural effusion. No pneumothorax. Heart/Mediastinum: Unremarkable. No cardiomegaly. Bones/joints: Chronic deformity of the proximal left humerus. XR/XR chest 1V portable [id number] IMPRESSION: As above.
[2024-09-11 16:45] LABS: INR 1.22 (0.8-1.2); Partial Thromboplastin Time 29.2 SECONDS (23.9-36.7)
[2024-09-11 16:47] LABS: Erythrocyte Sedimentation Rate 43 mm/hr (0-10)
[2024-09-11 16:54] LABS: Glucose Point of Care 270 mg/dL (70-110)
[2024-09-11 17:05] LABS: C Reactive Protein 85.4 mg/L (0.0-4.9); Chol HDL Ratio 3.55 mg/dL (1.0-5.00); Cholesterol 117 mg/dL (0-200); HDL Cholesterol 33 mg/dL (60-100); LDL Cholesterol Calculated 62 mg/dL (50-129); LDL HDL Ratio 1.88 RATIO (0.00-3.22); Thyroid Stimulating Hormone 3.17 uIU/mL (0.27-4.20); Triglycerides 110 mg/dL (0-150)
[2024-09-11] MEDS: insulin lispro 100 unit/1 mL SUBCUT (17:29)
[2024-09-11] MEDS: piperacillin-tazobactam 3.375 GM in sodium chloride 0.9% (plus) 50 ML IV (17:29)
[2024-09-11] MEDS: sodium chloride 0.9% 1,000 ML 125 ML IV (17:32)
[2024-09-11] MEDS: metoclopramide 5 mg/mL SDV 2 mL IVP (17:33)
--- NOTE | 2024-09-11 17:49 | PC.NURSE ---
Pt is noncompliant with multiple attempts at care. He is refusing to wear gown and complete skin assessment. He is also drinking water out of faucet and bottles provided by . Pt has had multiple bouts of coffee ground emesis since arriving to medical-surgical floor. Reglan given via IVP. For that reason, PO medications rescheduled for 2100. This RN educates pt and family multiple times on NPO status and exacerbation of symptoms. Dr. Rodriguez involved with care and aware of pt status.
--- NOTE | 2024-09-11 18:05 | PC.NURSE ---
answers admission questions due to pt refusal.
[2024-09-11 19:13] LABS: Hematocrit 31.2 % (37-53)
[2024-09-11 20:20] LABS: Estmated Average Glucose 192; Hemoglobin A1C 8.3 % (4.0-6.0)
[2024-09-11 20:30] LABS: Glucose Point of Care 191 mg/dL (70-110)
[2024-09-11] MEDS: lisinopril 20 mg Tablet PO (20:52)
[2024-09-11] MEDS: cloNIDine 0.1 mg Tablet PO (20:52)
[2024-09-11] MEDS: pantoprazole 40 mg SDV IVP (20:53)
[2024-09-11] MEDS: hyDRALAzine 25 mg Tablet PO (20:53)
[2024-09-11] MEDS: sodium bicarbonate 650 mg Tablet PO (21:49)
[2024-09-11 22:13] LABS: Hepatitis B Surface Antigen Non-Reactive (Nonreactive)
--- NOTE | 2024-09-11 22:47 | PC.NURSE ---
Patient stated that they no longer take metoprolol. Patient also refused 2100 sucralfate and sevelamer. Nurse administered remaining 2100 medications with out issue.
[2024-09-11 23:12] LABS: Hepatitis B Surface AB > 1000.0 (11.5-1000)
[2024-09-11 23:23] LABS: Glucose Point of Care 218 mg/dL (70-110)
[2024-09-12] VITALS (13 sets, daily range): BP systolic 133–218; BP diastolic 67–174; PULSE 69–87; RESP 15–19; TEMP 36.5–37.3; O2SAT 91–98
--- NOTE | 2024-09-12 00:12 | PC.NURSE ---
Notified Dr. Blair Walker that patients dex com was alarming for a blood glucose of 330. Nurse checked glucose with accu check and result was 218. Stat BMP was ordered, awaiting results.
[2024-09-12 01:12] LABS: Anion Gap 27.3 (5-19); Carbon Dioxide 22 mmol/L (22-29); Chloride 87 mmol/L (98-107); Creatinine Clr Calc Pharmacy 9.0097; Glomerular Filtration Rate 4.6 mL/min (90-130); Glucose 263 mg/dL (65-115); Osmolality Calculated 309 mOsm/kg (285-295); Potassium 4.3 mmol/L (3.5-5.1); Sodium 132 mmol/L (136-145)
[2024-09-12 01:28] LABS: Blood Urea Nitrogen 84 mg/dL (6-20)
[2024-09-12] MEDS: sodium chloride 0.9% 1,000 ML 125 ML IV ×2 (01:52→11:35)
[2024-09-12] MEDS: insulin lispro 100 unit/1 mL SUBCUT ×3 (02:23→17:06)
[2024-09-12] MEDS: sucralfate 1 gm/10 mL Oral Liq UDC PO ×4 (03:52→20:20)
[2024-09-12 04:06] LABS: Glucose Point of Care 249 mg/dL (70-110)
--- NOTE | 2024-09-12 05:24 | PC.NURSE ---
Addendum entered by Divine Florian LPN 09/12/24 05:26: Informed Dr that blood glucose was at 249 after recieving 4 units of insulin. No new orders at this time. Original Note: Informed Dr. Blair Walker that patients blood glucose was 249 after
[2024-09-12] MEDS: ondansetron 2 mg/ML SDV 2 mL 4 MG IVP ×3 (06:06→23:35)
[2024-09-12] MEDS: piperacillin-tazobactam 3.375 GM in sodium chloride 0.9% (plus) 50 ML IV ×2 (06:07→17:07)
[2024-09-12 06:08] LABS: Glucose Point of Care 239 mg/dL (70-110)
[2024-09-12 06:38] LABS: Basophils # 0.1 10^3/uL (0.0-0.1); Basophils % 0.5 %; Eosinophils % 0.1 %; Hematocrit 32.9 % (37-53); Lymphocytes # 2.1 10^3/uL (0.8-4.8); Lymphocytes % 17.1 %; Mean Corpuscular HGB Conc 32.2 g/dL (30-55); Mean Corpuscular Hemoglobin 28.7 pg (27-33); Mean Corpuscular Volume 89.2 fl (82-101); Mean Platelet Volume 10.5 fL (7.4-10.4); Monocytes # 1.4 10^3/uL (0.2-0.9); Monocytes % 10.8 %; Neutrophils # 8.86 10^3/uL (1.8-7.7); Neutrophils % 70.9 %; Nucleated Red Blood Cells % 0 %; Platelet Count 197 10^3/cmm (157-399); Red Blood Count 3.69 10^6/uL (3.85-5.65); Red Cell Distribution Width 14.8 % (12.1-15.1)
[2024-09-12 06:57] LABS: Alanine Aminotransferase 13 U/L (0-41); Albumin Level 3.7 g/dL (3.5-5.2); Alkaline Phosphatase 56 U/L (40-130); Anion Gap 26.1 (5-19); Aspartate Amino Transferase 15 U/L (0-40); Calcium 8.3 mg/dL (8.5-10.5); Carbon Dioxide 21 mmol/L (22-29); Chloride 87 mmol/L (98-107); Creatinine Clr Calc Pharmacy 8.4858; Globulin 2.6 g/dL (1.3-4.6); Glomerular Filtration Rate 4.3 mL/min (90-130); Glucose 245 mg/dL (65-115); Osmolality Calculated 305 mOsm/kg (285-295); Phosphorus 6.9 mg/dL (2.5-4.5); Potassium 4.1 mmol/L (3.5-5.1); Sodium 130 mmol/L (136-145); Total Bilirubin 0.2 mg/dL (0.15-1.2); Total Protein 6.3 g/dL (6.6-8.7)
[2024-09-12 07:07] LABS: Blood Urea Nitrogen 88 mg/dL (6-20)
[2024-09-12] MEDS: metoclopramide 5 mg/mL SDV 2 mL IVP ×2 (07:09→17:08)
[2024-09-12] MEDS: lidocaine 4% cream 5 gm 1 APPLIC TOPICAL (07:20)
--- NOTE | 2024-09-12 08:16 | PC.HD ---
Patient c/o nausea prior to dialysis. Primary RN notified, requesting anti-nausea medication. Heparin 1000 units loading dose administered via venous needle at 0803 per nurses assistant's orders.
--- NOTE | 2024-09-12 09:00 | PC.CHAP ---
Pastoral Care Encounter/Spiritual Assessment Type of Contact [] Declined labor commissioner visit [] Patient/Family/Request visit [] Outpatient visit [] Follow-up visit [] Physician referral [] Code/Alert [] Routine visit [] Staff referral [] Actively dying [] Patient sleeping [] Family support [] [] Out of room [] Palliative care [] [] Receiving care in room [] Pre-surgical visit [] Trauma [] Long length of stay [] ICU visit [x] Other: STOP See Nurse Relational/Emotional Strength [] Patient feels connected with others/family/visitors/staff [] Distress [] Loneliness/isolation [] Abandonment Spirituality of Patient [] Person of Madelaine [] Attends Scientologist of their Madelaine [] Believes in Prayer [] Reads Bible or Restoration materials [] There are Spiritual issues to be addressed Ssrs Report Developer Interventions [] Prayer [] Active listening [] Non-anxious presence [] Spiritual/emotional support [] Crisis/trauma care [] Spiritual counseling [] Bereavement support [] Provided bereavement packet [] Provided Bible/devotional materials [] Provided toy/stuffed animal, coloring book to patient or family member [] Provided Communion [] Anointing/[place] [] Salvation [] Completed spiritual assessment [] Other: Impact on Illness or Injury [] Angry [] Fearful [] Anxious [] Often cries [] Exhaustion [] Unable to work [] Unable to attend pentecostalism [] Unable to walk/stand [] Unable to read [] Unable to drive [] Unable to eat/drink [] Unable to sleep [] Unable to be with family [] Patient intubated [] Other: Summary Time spent with patient
[2024-09-12] MEDS: calcitriol 0.25 mcg Capsule 0.5 MCG PO (09:01)
[2024-09-12] MEDS: sevelamer 800 mg Tablet PO ×2 (09:02→12:47)
[2024-09-12] MEDS: pantoprazole 40 mg SDV IVP ×2 (09:03→20:20)
[2024-09-12] MEDS: promethazine 25 mg/mL SDV 1 mL 12.5 MG IM (09:03)
[2024-09-12] MEDS: sodium bicarbonate 650 mg Tablet PO ×2 (09:03→17:06)
--- NOTE | 2024-09-12 09:12 | PC.SOCIAL ---
IMM Update Pg. 2 of IMM updated and copy provided at bedside.
--- NOTE | 2024-09-12 09:35 | P.CONIM_ITS ---
Providers/Reason For Consult 2 Consulting Physician/Specialty*: [facility]/Nephrology Reason for Consult*: ESRD Attending Physician: Marv Rodriguez MD Primary Care Provider: Ko Crabtree MD History of Present Illness History of Present Illness Kaden Lozano is a 34 year old male Patient is a 34-year-old male with past medical history of end-stage renal disease on hemodialysis, type 1 diabetes presented to the emergency department due to nausea vomiting abdominal pain and diarrhea also complained of having coffee-ground emesis. CT scan of the abdomen pelvis showed small bowel thickening and edema. Last hemodialysis was on Sunday. Blood pressures were elevated in the ER. Other lab data significant for white count of 17,000, creatinine 12. Patient is admitted for further management. Review of Systems 2 Narrative: other ROS negative Medications/Allergies Home Medications Medication Instructions Recorded Confirmed Last Taken Type glucometer testing kit #1 ea 12/12/23 09/11/24 Unknown Rx Diabetic shoes #1 ea 07/08/24 09/11/24 Unknown Rx amlodipine 10 mg tablet 10 mg PO DAILY 07/08/24 09/11/24 09/10/24 History famotidine 20 mg tablet 20 mg PO DAILY PRN Acid Reflux 07/08/24 09/11/24 09/10/24 History hydralazine 25 mg tablet 25 mg PO QID 07/08/24 09/11/24 09/10/24 History metoprolol tartrate 25 mg tablet 25 mg PO BID 07/08/24 09/11/24 09/10/24 History ondansetron HCl 4 mg tablet 4 mg PO Q8H PRN nausea and 08/06/24 09/11/24 Unknown Rx vomiting #14 tabs calcitriol 0.5 mcg capsule 0.5 mcg PO DAILY 09/11/24 09/11/24 09/10/24 History carvedilol 25 mg tablet 25 mg PO BID 09/11/24 09/11/24 09/10/24 History clonidine HCl 0.1 mg tablet 0.1 mg PO BID 09/11/24 09/11/24 09/10/24 History ergocalciferol (vitamin D2) 1,250 1,250 mcg PO Q7D 09/11/24 09/11/24 Unknown History mcg (50,000 unit) capsule (Vitamin D2) gentamicin 0.1 % topical cream See Rx Instructions .Route .COMPLEX 09/11/24 09/11/24 Unknown History glucagon 3 mg/actuation nasal 3 mg intranasal PRN PRN low bs 09/11/24 09/11/24 Unknown History spray (Baqsimi) insulin aspart 5 unit SUBCUT TID 09/11/24 09/11/24 09/10/24 History (niacinamide)(U-100) 100 unit/mL(3 mL) subcutaneous pen (Fiasp FlexTouch U-100 Insulin) insulin glargine-yfgn 100 unit/mL 22 unit SUBCUT BEDTIME 09/11/24 09/11/24 09/10/24 History (3 mL) subcutaneous pen (Semglee (insulin glargine-yfgn) Pen) lidocaine-prilocaine 2.5 %-2.5 % See Rx Instructions .Route .COMPLEX 09/11/24 09/11/24 Unknown History topical cream lisinopril 20 mg tablet 20 mg PO BID 09/11/24 09/11/24 09/10/24 History sevelamer carbonate 800 mg tablet 800 mg PO QID 09/11/24 09/11/24 09/10/24 History sodium bicarbonate 650 mg tablet 650 mg PO BID 09/11/24 09/11/24 09/10/24 History vit B,C-folic ac 800 mcg-zinc 12.5 1 tab PO QPM 09/11/24 09/11/24 09/10/24 History mg-selen-D3 2,000 unit-vit E tablet (RenaPlex-D) Allergies Allergy/AdvReac Type Severity Reaction Status Date / Time No Known Allergies Allergy Verified 09/11/24 10:50 Current Medications Generic Name Dose Route Start Last Admin Trade Name Freq PRN Reason Stop Dose Admin Calcitriol 0.5 mcg 09/12/24 09:00 09/12/24 09:01 Calcitriol 0.25 Mcg Capsule PO 0.5 mcg DAILY NIKOLE Administration Clonidine HCl 0.1 mg 09/11/24 21:00 09/11/24 20:52 Clonidine 0.1 Mg Tablet PO 0.1 mg BID NIKOLE Administration Hydralazine HCl 25 mg 09/11/24 21:00 09/11/24 20:53 Hydralazine 25 Mg Tablet PO 25 mg QID NIKOLE Administration Sodium Chloride 1,000 mls @ 125 mls/hr 09/11/24 16:28 09/12/24 01:52 Sodium Chloride 0.9% IV 125 mls/hr .Q8H NIKOLE Administration Piperacillin Sod/Tazobactam 50 mls @ 12.5 mls/hr 09/11/24 17:30 09/12/24 06:07 Sod 3.375 gm/ Sodium Chloride IV 12.5 mls/hr Q12H NIKOLE Administration Protocol As Directed Insulin Human Lispro 0 unit 09/11/24 18:00 09/12/24 09:02 Insulin Lispro 100 Unit/1 Ml SUBCUT 8 unit TIDWM NIKOLE Administration Protocol Lidocaine 1 applic 09/12/24 06:37 09/12/24 07:20 Lidocaine 4% Cream 5 Gm TOPICAL 1 applic QID PRN Administration DISCOMFORT Lisinopril 20 mg 09/11/24 21:00 09/11/24 20:52 Lisinopril 20 Mg Tablet PO 20 mg BID NIKOLE Administration Metoclopramide HCl 5 mg 09/11/24 16:28 09/12/24 07:09 Metoclopramide 5 Mg/Ml Sdv 2 Ml IVP 5 mg Q6H PRN Administration NAUSEA AND VOMITING Metoprolol Tartrate 25 mg 09/11/24 21:00 09/11/24 20:52 Metoprolol Tartrate 25 Mg Tablet PO Not Given BID [facility] Ondansetron HCl 4 mg 09/11/24 16:28 09/12/24 06:06 Ondansetron 2 Mg/Ml Sdv 2 Ml IVP 4 mg Q4H PRN Administration NAUSEA AND VOMITING Pantoprazole Sodium 40 mg 09/11/24 18:00 09/12/24 09:03 Pantoprazole 40 Mg Sdv IVP 40 mg Q12H NIKOLE Administration Promethazine HCl 12.5 mg 09/11/24 17:14 09/12/24 09:03 Promethazine 25 Mg/Ml Sdv 1 Ml IM 12.5 mg Q6H PRN Administration NAUSEA Sevelamer Carbonate 800 mg 09/11/24 21:00 09/12/24 09:02 Sevelamer 800 Mg Tablet PO 800 mg QID NIKOLE Administration Sodium Bicarbonate 650 mg 09/11/24 21:00 09/12/24 09:03 Sodium Bicarbonate 650 Mg Tablet PO [address] [facility] Administration Sucralfate 1 gm 09/11/24 16:28 09/12/24 09:02 Sucralfate 1 Gm/10 Ml Oral Liq Udc PO 1 gm Q6H NIKOLE Administration PFSH Acute 2 PFSH: Medical History Type 1 diabetes Social History Smoking and tobacco/nicotine status: former use of tobacco/nicotine Substance/Drug Use: current Substance/Drug use frequency: few times a week Vitals/I&O/Wt Last Vital Signs Temp 98.2 F 09/12/24 08:15 Pulse 81 09/12/24 08:15 Resp 16 09/12/24 08:15 BP 177/78 09/12/24 08:15 Pulse Ox 93 09/12/24 07:37 O2 Del Method Room Air 09/12/24 07:37 09/11/24 09/12/24 09/12/24 22:59 06:59 14:59 Intake Total 550 / 550 1000 / 1550 Output Total 200 / 200 Balance 550 / 550 1000 / 1550 -200 / -200 Weight last 48 hrs Weight 75.251 kg Weight 74.843 kg Physical Exam 2 Narrative: Awake alert, no distress HEENT, getting dialysis S1-S2 regular rate and rhythm per report Lungs clear per report No pedal edema Data 09/12/24 06:10 09/12/24 06:10 Micro: Microbiology 09/11/24 16:11 Blood Culture - Preliminary Blood SPECIMEN COLLECTED 09/11/24 16:06 Blood Culture - Preliminary Blood SPECIMEN COLLECTED A&P Assessment and plan (1) ESRD (end stage renal disease) on dialysis: Plan 1. End-stage renal disease: On MWF schedule, HD today 2. Nausea vomiting diarrhea: Likely viral gastroenteritis, supportive care 3. Coffee-ground emesis, checking serial hemoglobin On Protonix 4. History of type I diabetes type 2 5. Anemia: Hemoglobin 11.8 Patient evaluated using audiovisual cart. Time spent 40 minutes.- Consult Attestations 2 Medical Necessity Statement: per mediicne team Coding Level of Care Code Acute Code for Chg Fwd Diagnoses ESRD (end stage renal disease) on dialysis N18.6; Z99.2
[2024-09-12 10:51] LABS: Glucose Point of Care 139 mg/dL (70-110)
[2024-09-12] MEDS: amlodipine 10 mg Tablet PO (11:30)
[2024-09-12] MEDS: cloNIDine 0.1 mg Tablet PO ×2 (11:31→17:05)
[2024-09-12] MEDS: metoprolol tartrate 25 mg Tablet PO (11:31)
[2024-09-12] MEDS: lisinopril 20 mg Tablet PO ×2 (11:31→17:05)
[2024-09-12] MEDS: hyDRALAzine 25 mg Tablet PO ×4 (11:31→20:20)
[2024-09-12] MEDS: carvedilol 25 mg Tablet PO ×2 (11:32→17:05)
[2024-09-12] MEDS: heparin, porcine 1,000 unit/mL INJ 10 mL 1000 UNIT IV (11:43)
[2024-09-12 12:39] LABS: Hematocrit 35.1 % (37-53)
[2024-09-12] MEDS: vancomycin 2,000 MG/400 ML PIGGYBACK 200 MG IV (12:47)
--- NOTE | 2024-09-12 12:51 | PHA.VACGOAL ---
Vancomycin Goal - Goal Vancomycin Goal:: 15-20 mg/L Vancomycin Indication:: Other (BACTEREMIA) - Therapy Current therapy:: Pip/Tazo Day of therpy:: Day [1]of [] . Actual body weight (kg): 77 kg - Data Labs: WBC 12.50 10^3/uL (3.29-11.43) H 09/12/24 06:10 RBC 3.69 10^6/uL (3.85-5.65) L 09/12/24 06:10 Hgb 11.20 g/dL (11.27-16.99) L 09/12/24 12:30 Hct 35.1 % (37-53) L 09/12/24 12:30 MCV 89.2 fl (82-101) 09/12/24 06:10 MCH 28.7 pg (27-33) 09/12/24 06:10 MCHC 32.2 g/dL (30-55) 09/12/24 06:10 RDW 14.8 % (12.1-15.1) 09/12/24 06:10 Sodium 130 mmol/L (136-145) L 09/12/24 06:10 Potassium 4.1 mmol/L (3.5-5.1) 09/12/24 06:10 Chloride 87 mmol/L (98-107) L 09/12/24 06:10 Carbon Dioxide 21 mmol/L (22-29) L 09/12/24 06:10 Anion Gap 26.1 (5-19) H 09/12/24 06:10 BUN 88 mg/dL (6-20) H* 09/12/24 06:10 Creatinine 13.3 mg/dL (0.7-1.2) H* 09/12/24 06:10 GFR Calculation 4.3 mL/min (90-130) L 09/12/24 06:10 Treatment plan:: new consult Regimen:: Microbiology 09/11/24 16:11 Blood Blood Culture - Preliminary Staphylococcus epidermidis New start vancomycin for Bacteremia.Staphylococcus epidermidis growing in 1 of 3 bottles. 2000 mg load dose ordered. Scr of 13.3 mg/dL. Patient will receive maintenance dose of 10 mg/kg on dialysis days after dialysis. Pharmacy will continue to monitor daily.
--- NOTE | 2024-09-12 14:28 | P.PN_ITS ---
Subjective 2 Subjective: Patient was seen this morning, denies any fevers, no chills, patient was on strict n.p.o. overnight due to persistent nausea vomiting however he refused to follow instructions and Drinking water out of the faucet in his room, patient was seen this morning, reports no episodes of nausea or vomiting this morning, no coffee-ground emesis, denies any fevers, no chills, he was found to be COVID- positive overnight does have a cough is on room air, diarrhea has resolved, his appetite is improving, no chest pain, no palpitations, no bloody black stools no hematemesis Vitals/I&O/Wt Last Vital Signs Temp 97.7 F 09/12/24 11:43 Pulse 74 09/12/24 11:43 Resp 16 09/12/24 11:43 BP 218/104 09/12/24 11:43 Pulse Ox 93 09/12/24 07:37 O2 Del Method Room Air 09/12/24 07:37 09/11/24 09/12/24 09/12/24 22:59 06:59 14:59 Intake Total 550 / 550 1000 / 1550 1716.667 / 1716.667 Output Total 4200 / 4200 Balance 550 / 550 1000 / 1550 -2483.333 / -2483.333 Weight last 48 hrs Weight 77 kg Weight 75.251 kg Weight 74.843 kg Physical Exam 2 Const: COMMON NORMALS: no acute distress and patient oriented x3 Resp: COMMON NORMALS: normal respiratory effort, No retractions, No use of accessory muscles and clear to auscultation bilaterally AUSCULTATION: clear to auscultation bilaterally Cardio: COMMON NORMALS: regular rate, regular rhythm, S1 normal heart sound present and S2 normal heart sound present RATE: regular rate RHYTHM: r egular rhythm HEART SOUNDS: S1 normal heart sound present and S2 normal heart sound present GI: COMMON NORMALS: Normal to inspection, nondistended, normoactive bowel sounds present and non-tender Extremity: COMMON NORMALS: no pedal edema Neuro: COMMON NORMALS: patient oriented x3 Psych: COMMON NORMALS: mental status grossly normal Data 09/12/24 12:30 09/12/24 06:10 Micro: Microbiology 09/11/24 16:11 Blood Culture - Preliminary Blood Staphylococcus epidermidis 09/11/24 16:06 Blood Culture - Preliminary Blood SPECIMEN COLLECTED A&P Assessment and plan (1) Viral gastroenteritis: (2) Intractable nausea and vomiting: (3) Coffee ground emesis: (4) Hypertension, uncontrolled: (5) Type 1 diabetes: (6) ESRD (end stage renal disease) on dialysis: (7) Dehydration: (8) Staphylococcus epidermidis bacteremia: Plan Coffee-ground emesis, resolved # Likely from retching, nausea, vomiting ? However cannot rule out upper GI bleed for Nancy-Will tear ? Monitor hemoglobins every 6 hours # Nausea control with Zofran, Reglan ? Protonix, Carafate ? N.p.o. sips and chips # Monitor clinical status closely Intractable, nausea, vomiting ? Nausea control gastroenteritis, dehydration ? IV fluids -Zosyn COVID-19, associate with diarrhea, colitis Leukocytosis, CRP, Pro-Asael, sed rate, blood cultures, chest x-ray within normal limits, UA unremarkable Type 1 diabetes ? Serum ketones negative, pH 7.46, bicarb 26, anion gap 27.9 ? No significant evidence of diabetic ketoacidosis # Monitor closely -IV fluids # Low-dose sliding scale End-stage renal disease, missed dialysis, plan on dialysis today Staph epidermidis bacteremia -1 out of 3 blood cultures -Blood cultures -Vancomycin Attestations 2 Medical Necessity Statement*: Patient requires hospitalization for COVID-19, Staph epidermidis bacteremia, coffee-ground emesis, dehydration, intractable nausea vomiting Diagnoses Viral gastroenteritis A08.4 Intractable nausea and vomiting R11.2 Coffee ground emesis K92.0 Hypertension, uncontrolled I10 Type 1 diabetes E10.9 ESRD (end stage renal disease) on dialysis N18.6; Z99.2 Dehydration E86.0 Staphylococcus epidermidis bacteremia R78.81; B95.7
[2024-09-12 17:10] LABS: Glucose Point of Care 212 mg/dL (70-110)
[2024-09-12 21:10] LABS: Glucose Point of Care 139 mg/dL (70-110)
[2024-09-12 23:28] LABS: Glucose Point of Care 241 mg/dL (70-110)
[2024-09-13] VITALS (65 sets, daily range): BP systolic 101–143; BP diastolic 42–71; PULSE 53–127; RESP 0–40; TEMP 36.5–36.8; O2SAT 91–96
[2024-09-13] MEDS: metoclopramide 5 mg/mL SDV 2 mL IVP (02:22)
[2024-09-13] MEDS: piperacillin-tazobactam 3.375 GM in sodium chloride 0.9% (plus) 50 ML IV ×2 (04:54→17:02)
[2024-09-13] MEDS: sodium chloride 0.9% 1,000 ML 50 ML IV (04:55)
[2024-09-13 05:30] LABS: Glucose Point of Care 388 mg/dL (70-110)
[2024-09-13] MEDS: insulin lispro 100 unit/1 mL SUBCUT (07:21)
[2024-09-13] MEDS: sevelamer 800 mg Tablet PO ×3 (08:41→17:02)
[2024-09-13] MEDS: lisinopril 20 mg Tablet PO ×2 (08:42→17:53)
[2024-09-13] MEDS: sodium bicarbonate 650 mg Tablet PO ×2 (08:42→17:53)
[2024-09-13] MEDS: calcitriol 0.25 mcg Capsule 0.5 MCG PO (08:42)
[2024-09-13] MEDS: amlodipine 10 mg Tablet PO (08:42)
[2024-09-13] MEDS: metoprolol tartrate 25 mg Tablet PO ×2 (08:42→17:53)
[2024-09-13] MEDS: carvedilol 25 mg Tablet PO ×2 (08:42→17:53)
[2024-09-13] MEDS: hyDRALAzine 25 mg Tablet PO ×4 (08:42→20:04)
[2024-09-13] MEDS: sucralfate 1 gm/10 mL Oral Liq UDC PO ×3 (08:42→22:04)
[2024-09-13] MEDS: cloNIDine 0.1 mg Tablet PO ×2 (08:43→17:53)
[2024-09-13] MEDS: pantoprazole 40 mg SDV IVP ×2 (08:43→20:05)
[2024-09-13] MEDS: lanolin oint 7 gm 1 APPLIC TOPICAL (09:10)
[2024-09-13 09:23] LABS: Basophils # 0.1 10^3/uL (0.0-0.1); Basophils % 0.3 %; Hematocrit 32.6 % (37-53); Lymphocytes # 1.5 10^3/uL (0.8-4.8); Lymphocytes % 6.7 %; Mean Corpuscular HGB Conc 31.3 g/dL (30-55); Mean Corpuscular Hemoglobin 28.7 pg (27-33); Mean Corpuscular Volume 91.6 fl (82-101); Mean Platelet Volume 10.3 fL (7.4-10.4); Monocytes # 1.5 10^3/uL (0.2-0.9); Monocytes % 6.7 %; Neutrophils # 19.14 10^3/uL (1.8-7.7); Neutrophils % 85.5 %; Nucleated Red Blood Cells % 0 %; Platelet Count 253 10^3/cmm (157-399); Red Blood Count 3.56 10^6/uL (3.85-5.65); Red Cell Distribution Width 14.7 % (12.1-15.1); White Blood Count 22.39 10^3/uL (3.29-11.43)
[2024-09-13 09:40] LABS: Alanine Aminotransferase 23 U/L (0-41); Albumin Level 3.4 g/dL (3.5-5.2); Alkaline Phosphatase 58 U/L (40-130); Anion Gap 43.3 (5-19); Aspartate Amino Transferase 31 U/L (0-40); Calcium 7.8 mg/dL (8.5-10.5); Chloride 78 mmol/L (98-107); Globulin 2.6 g/dL (1.3-4.6); Glomerular Filtration Rate 5.7 mL/min (90-130); Glucose 399 mg/dL (65-115); Magnesium 2.8 mg/dL (1.7-2.3); Osmolality Calculated 302 mOsm/kg (285-295); Potassium 4.3 mmol/L (3.5-5.1); Sodium 125 mmol/L (136-145); Total Bilirubin 0.2 mg/dL (0.15-1.2)
[2024-09-13 09:42] LABS: Blood Urea Nitrogen 84 mg/dL (6-20); Carbon Dioxide 8 mmol/L (22-29); Phosphorus 10.1 mg/dL (2.5-4.5)
[2024-09-13 09:59] LABS: Ketone (Acetest) Serum Positive (Negative)
[2024-09-13 10:28] LABS: Erythrocyte Sedimentation Rate 20 mm/hr (0-10)
--- NOTE | 2024-09-13 10:44 | PC.NURSE ---
Report called to KAILA PEÑALOZA in ICU. Patient transferred to ICU 8 via bed with all belongings.
[2024-09-13] MEDS: potassium chloride ER 20 mEq Tablet PO (11:23)
[2024-09-13] MEDS: sodium bicarbonate 8.4% 1 mEq/mL 50mL Syr 50 MEQ IVP (11:23)
[2024-09-13] MEDS: sodium chloride 0.9% 1,000 ML 125 ML IV (11:23)
[2024-09-13] MEDS: INSULIN REGULAR IN 0.9 % NACL 100 UNIT/100 ML BAG 7 UNIT IV (11:25)
[2024-09-13 11:55] LABS: Glucose Point of Care 356 mg/dL (70-110)
[2024-09-13 11:55] LABS: Glucose Point of Care 357 mg/dL (70-110)
[2024-09-13 13:01] LABS: Glucose Point of Care 306 mg/dL (70-110)
[2024-09-13 13:03] LABS: Anion Gap 41.4 (5-19); C Reactive Protein 25.9 mg/L (0.0-4.9); Calcium 7.4 mg/dL (8.5-10.5); Carbon Dioxide 10 mmol/L (22-29); Chloride 79 mmol/L (98-107); Glomerular Filtration Rate 5.9 mL/min (90-130); Glucose 338 mg/dL (65-115); Osmolality Calculated 301 mOsm/kg (285-295); Potassium 4.4 mmol/L (3.5-5.1); Sodium 126 mmol/L (136-145)
[2024-09-13 13:05] LABS: Blood Urea Nitrogen 86 mg/dL (6-20); Creatinine Clr Calc Pharmacy 11.1617
[2024-09-13 13:09] LABS: Procalcitonin 1.95 ng/mL (0-0.5)
--- NOTE | 2024-09-13 13:29 | P.PN_ITS ---
Subjective 2 Subjective: pt moved to ICU for dka Medications: Reviewed: Yes Vitals/I&O/Wt Last Vital Signs Temp 97.7 F 09/13/24 08:00 Pulse 65 09/13/24 12:15 Resp 20 H 09/13/24 12:15 BP 106/47 09/13/24 12:15 Pulse Ox 96 09/13/24 08:00 O2 Del Method Room Air 09/13/24 08:00 09/12/24 09/13/24 09/13/24 22:59 06:59 14:59 Intake Total 450 / 2166.667 800 / 2966.667 62.3 / 62.3 Balance 450 / -2033.333 800 / -1233.333 62.3 / 62.3 Weight last 48 hrs Weight 76.929 kg Weight 77 kg Weight 75.251 kg Physical Exam 2 Narrative: , no distress HEENT, S1-S2 regular rate and rhythm per report Lungs clear per report No pedal edema Data 09/13/24 09:00 09/13/24 12:12 Micro: Microbiology 09/13/24 09:05 Blood Culture - Preliminary Blood SPECIMEN COLLECTED 09/13/24 09:00 Blood Culture - Preliminary Blood SPECIMEN COLLECTED 09/11/24 16:06 Blood Culture - Preliminary Blood NEGATIVE TO DATE 09/11/24 16:11 Blood Culture - Preliminary Blood Staphylococcus epidermidis A&P Assessment and plan (1) ESRD (end stage renal disease) on dialysis: Plan 1. End-stage renal disease: On MWF schedule, HD done yesterday 2. Nausea vomiting diarrhea: Likely viral gastroenteritis, supportive care 3. DKA : transferred to ICU and on Insulun gtt 3. Coffee-ground emesis, checking serial hemoglobin On Protonix 4. History of type I diabetes type 2 5. Anemia: Hemoglobin 10.2 , monitor Patient evaluated using audiovisual cart. Time spent 40 minutes.- Attestations 2 Medical Necessity Statement*: per madelaine Coding Level of Care Code Acute Code for Chg Fwd Diagnoses ESRD (end stage renal disease) on dialysis N18.6; Z99.2
--- NOTE | 2024-09-13 14:00 | P.PN_ITS ---
Subjective 2 Subjective: Patient was seen this morning does complain of nausea and vomiting throughout the night, also diarrhea this morning, no fevers, no chills, no lightheadedness, no dizziness Vitals/I&O/Wt Last Vital Signs Temp 97.7 F 09/13/24 08:00 Pulse 65 09/13/24 12:15 Resp 20 H 09/13/24 12:15 BP 106/47 09/13/24 12:15 Pulse Ox 96 09/13/24 08:00 O2 Del Method Room Air 09/13/24 08:00 09/12/24 09/13/24 09/13/24 22:59 06:59 14:59 Intake Total 450 / 2166.667 800 / 2966.667 62.3 / 62.3 Balance 450 / -2033.333 800 / -1233.333 62.3 / 62.3 Weight last 48 hrs Weight 76.929 kg Weight 77 kg Weight 75.251 kg Physical Exam 2 Const: COMMON NORMALS: no acute distress and patient oriented x3 Resp: COMMON NORMALS: normal respiratory effort, No retractions, No use of accessory muscles and clear to auscultation bilaterally AUSCULTATION: clear to auscultation bilaterally Cardio: COMMON NORMALS: regular rate, regular rhythm, S1 normal heart sound present and S2 normal heart sound present RATE: regular rate RHYTHM: r egular rhythm HEART SOUNDS: S1 normal heart sound present and S2 normal heart sound present GI: COMMON NORMALS: Normal to inspection, nondistended, normoactive bowel sounds present and non-tender Extremity: COMMON NORMALS: no pedal edema Neuro: COMMON NORMALS: patient oriented x3 Psych: COMMON NORMALS: mental status grossly normal Data 09/13/24 09:00 09/13/24 12:12 Micro: Microbiology 09/13/24 09:05 Blood Culture - Preliminary Blood SPECIMEN COLLECTED 09/13/24 09:00 Blood Culture - Preliminary Blood SPECIMEN COLLECTED 09/11/24 16:06 Blood Culture - Preliminary Blood NEGATIVE TO DATE 09/11/24 16:11 Blood Culture - Preliminary Blood Staphylococcus epidermidis A&P Assessment and plan (1) Viral gastroenteritis: (2) Intractable nausea and vomiting: (3) Coffee ground emesis: (4) Hypertension, uncontrolled: (5) Type 1 diabetes: (6) ESRD (end stage renal disease) on dialysis: (7) Dehydration: (8) Staphylococcus epidermidis bacteremia: (9) Diabetic ketoacidosis: Plan Diabetic ketoacidosis, ketones positive, bicarb 8, anion gap 43 ? Plan ? Moved to ICU ? Start DKA protocol # Insulin drip # Monitor blood sugars q. hourly ? Maintain potassium greater than 4.5 ? Check a BMP every 4 hours ? Once blood sugar is less than 200 will transition to D5 half-normal saline with 20 KCl -Continue normal saline at 125 cc Coffee-ground emesis, resolved # Likely from retching, nausea, vomiting ? However cannot rule out upper GI bleed for Nancy-Will tear ? Monitor hemoglobins every 6 hours # Nausea control with Zofran, Reglan ? Protonix, Carafate ? N.p.o. sips and chips # Monitor clinical status closely Intractable, nausea, vomiting ? Nausea control gastroenteritis, dehydration Concerns for gastroenteritis ? IV fluids -Zosyn COVID-19, associate with diarrhea, colitis Leukocytosis, CRP, Pro-Asael, sed rate, blood cultures, chest x-ray within normal limits, UA unremarkable Type 1 diabetes End-stage renal disease, missed dialysis, plan on dialysis today Staph epidermidis bacteremia -1 out of 3 blood cultures -Blood cultures -Vancomycin Attestations 2 Medical Necessity Statement*: Patient requires hospitalization for diabetic ketoacidosis requiring ICU admission, insulin drip, Diagnoses Viral gastroenteritis A08.4 Intractable nausea and vomiting R11.2 Coffee ground emesis K92.0 Hypertension, uncontrolled I10 Type 1 diabetes E10.9 ESRD (end stage renal disease) on dialysis N18.6; Z99.2 Dehydration E86.0 Staphylococcus epidermidis bacteremia R78.81; B95.7 Diabetic ketoacidosis E11.10
[2024-09-13 14:02] LABS: Glucose Point of Care 290 mg/dL (70-110)
[2024-09-13 15:05] LABS: Glucose Point of Care 239 mg/dL (70-110)
[2024-09-13] MEDS: D5-NS 0.45% + KCL 20 mEq 20 MEQ/1,000 ML BAG 125 MEQ IV (15:22)
[2024-09-13 16:06] LABS: Glucose Point of Care 244 mg/dL (70-110)
[2024-09-13 16:51] LABS: Anion Gap 24.1 (5-19); Calcium 7.5 mg/dL (8.5-10.5); Carbon Dioxide 20 mmol/L (22-29); Chloride 87 mmol/L (98-107); Creatinine Clr Calc Pharmacy 10.7405; Glomerular Filtration Rate 5.6 mL/min (90-130); Glucose 220 mg/dL (65-115); Osmolality Calculated 298 mOsm/kg (285-295); Potassium 4.1 mmol/L (3.5-5.1); Sodium 127 mmol/L (136-145)
[2024-09-13 17:06] LABS: Blood Urea Nitrogen 88 mg/dL (6-20)
[2024-09-13 17:13] LABS: Glucose Point of Care 220 mg/dL (70-110)
[2024-09-13 18:00] LABS: Glucose Point of Care 175 mg/dL (70-110)
[2024-09-13 19:18] LABS: Glucose Point of Care 174 mg/dL (70-110)
[2024-09-13 20:17] LABS: Glucose Point of Care 163 mg/dL (70-110)
[2024-09-13 21:24] LABS: Glucose Point of Care 161 mg/dL (70-110)
[2024-09-13 21:30] LABS: Anion Gap 27.4 (5-19); Calcium 7.4 mg/dL (8.5-10.5); Carbon Dioxide 18 mmol/L (22-29); Chloride 86 mmol/L (98-107); Creatinine Clr Calc Pharmacy 10.1651; Glomerular Filtration Rate 5.3 mL/min (90-130); Glucose 151 mg/dL (65-115); Osmolality Calculated 295 mOsm/kg (285-295); Potassium 4.4 mmol/L (3.5-5.1); Sodium 127 mmol/L (136-145)
[2024-09-13 21:39] LABS: Blood Urea Nitrogen 90 mg/dL (6-20)
[2024-09-13 22:08] LABS: Glucose Point of Care 153 mg/dL (70-110)
[2024-09-13] MEDS: dextrose 10% 1,000 ML 125 ML IV (22:47)
--- NOTE | 2024-09-13 22:54 | PC.NURSE ---
Addendum entered by Daisy Blanc RN 09/14/24 04:43: Dr. Sanches messaged @[phone] regarding CMP results- No reply. Physician on unit @approximately 0420 to discuss results. New order for 20meq PO Potassium and 800 mg Renvela PO ONCE NOW. Addendum entered by Daisy Blanc RN 09/14/24 00:46: Dr. Sanches on unit to see pt. Updated on most recent BG- 224. New order to increase insulin drip to 10units/hr and stop D10 drip till 0200 BMP. Original Note: Physician Notification: Messaged Dr. Sanches @4024. Physicain on unit @2240 to discuss recent BMP. New order to d/c D5 1/2NS +20KCL and start D10 @125ml/hr. Increase Insulin drip to 5 units/hr NOW. Let pt eat and drink. Check BG Q1H. Adjust Q4HR BMP- Next draw @0200.
[2024-09-13 23:47] LABS: Glucose Point of Care 216 mg/dL (70-110)
[2024-09-14] VITALS (23 sets, daily range): BP systolic 113–143; BP diastolic 58–95; PULSE 55–77; RESP 16–21; TEMP 36.7–36.9; O2SAT 92–97; BMI 23.0
[2024-09-14 00:04] LABS: Amphetamines Screen Urine Negative (Negative); Barbiturates Screen Urine Negative (Negative); Benzodiazepines Screen Urine Negative (Negative); Cocaine Screen Urine Negative (Negative); Opiate Screen Urine Negative (Negative); PCP Screen Urine Negative (Negative); THC Screen Urine Positive (Negative)
[2024-09-14 00:40] LABS: Glucose Point of Care 224 mg/dL (70-110)
[2024-09-14 01:32] LABS: Glucose Point of Care 239 mg/dL (70-110)
[2024-09-14 02:03] LABS: C.Diff PCR (Lab) NEGATIVE (Negative)
[2024-09-14] MEDS: INSULIN REGULAR IN 0.9 % NACL 100 UNIT/100 ML BAG 10 UNIT IV (02:06)
[2024-09-14 02:23] LABS: Basophils # 0.1 10^3/uL (0.0-0.1); Basophils % 0.4 %; Eosinophils # 0.1 10^3/uL (0.0-0.8); Eosinophils % 1.1 %; Hematocrit 27.7 % (37-53); Lymphocytes # 2.1 10^3/uL (0.8-4.8); Lymphocytes % 15.7 %; Mean Corpuscular HGB Conc 33.9 g/dL (30-55); Mean Corpuscular Hemoglobin 28.2 pg (27-33); Mean Corpuscular Volume 83.2 fl (82-101); Monocytes # 1.1 10^3/uL (0.2-0.9); Monocytes % 8.1 %; Neutrophils # 9.72 10^3/uL (1.8-7.7); Neutrophils % 74.2 %; Nucleated Red Blood Cells % 0 %; Platelet Count 203 10^3/cmm (157-399); Red Blood Count 3.33 10^6/uL (3.85-5.65); Red Cell Distribution Width 14.1 % (12.1-15.1); White Blood Count 13.08 10^3/uL (3.29-11.43)
[2024-09-14 02:36] LABS: Alanine Aminotransferase 19 U/L (0-41); Albumin Level 3.2 g/dL (3.5-5.2); Alkaline Phosphatase 46 U/L (40-130); Anion Gap 24.6 (5-19); Aspartate Amino Transferase 20 U/L (0-40); Calcium 7.6 mg/dL (8.5-10.5); Carbon Dioxide 19 mmol/L (22-29); Chloride 86 mmol/L (98-107); Creatinine Clr Calc Pharmacy 9.8146; Globulin 2.3 g/dL (1.3-4.6); Glomerular Filtration Rate 5.1 mL/min (90-130); Glucose 251 mg/dL (65-115); Magnesium 2.7 mg/dL (1.7-2.3); Osmolality Calculated 299 mOsm/kg (285-295); Phosphorus 6.4 mg/dL (2.5-4.5); Potassium 3.6 mmol/L (3.5-5.1); Sodium 126 mmol/L (136-145); Total Bilirubin 0.2 mg/dL (0.15-1.2); Total Protein 5.5 g/dL (6.6-8.7)
[2024-09-14 03:00] LABS: Blood Urea Nitrogen 93 mg/dL (6-20)
[2024-09-14 03:28] LABS: Glucose Point of Care 208 mg/dL (70-110)
[2024-09-14 03:28] LABS: Glucose Point of Care 257 mg/dL (70-110)
[2024-09-14 04:32] LABS: Glucose Point of Care 220 mg/dL (70-110)
[2024-09-14] MEDS: sevelamer 800 mg Tablet PO ×4 (05:13→16:41)
[2024-09-14] MEDS: potassium chloride ER 20 mEq Tablet PO (05:13)
[2024-09-14] MEDS: sucralfate 1 gm/10 mL Oral Liq UDC PO ×3 (05:14→16:41)
[2024-09-14] MEDS: piperacillin-tazobactam 3.375 GM in sodium chloride 0.9% (plus) 50 ML IV (05:21)
[2024-09-14 05:27] LABS: Glucose Point of Care 209 mg/dL (70-110)
[2024-09-14 06:34] LABS: Glucose Point of Care 159 mg/dL (70-110)
[2024-09-14 06:56] LABS: Anion Gap 22.5 (5-19); Calcium 7.4 mg/dL (8.5-10.5); Carbon Dioxide 19 mmol/L (22-29); Chloride 83 mmol/L (98-107); Glomerular Filtration Rate 5.2 mL/min (90-130); Osmolality Calculated 309 mOsm/kg (285-295); Potassium 3.5 mmol/L (3.5-5.1); Sodium 121 mmol/L (136-145)
[2024-09-14 07:00] LABS: Blood Urea Nitrogen 89 mg/dL (6-20); Creatinine Clr Calc Pharmacy 9.9868; Glucose 641 mg/dL (65-115)
[2024-09-14 07:31] LABS: Glucose Point of Care 135 mg/dL (70-110)
[2024-09-14] MEDS: D5-NS 0.45% + KCL 20 mEq 20 MEQ/1,000 ML BAG 125 MEQ IV ×2 (08:15→16:41)
[2024-09-14 08:19] LABS: Glucose Point of Care 147 mg/dL (70-110)
[2024-09-14] MEDS: carvedilol 25 mg Tablet PO ×2 (08:44→16:45)
[2024-09-14] MEDS: cloNIDine 0.1 mg Tablet PO ×2 (08:44→16:45)
[2024-09-14] MEDS: sodium bicarbonate 650 mg Tablet PO ×2 (08:44→16:46)
[2024-09-14] MEDS: amlodipine 10 mg Tablet PO (08:44)
[2024-09-14] MEDS: calcitriol 0.25 mcg Capsule 0.5 MCG PO (08:44)
[2024-09-14] MEDS: hyDRALAzine 25 mg Tablet PO ×3 (08:44→16:41)
[2024-09-14] MEDS: lisinopril 20 mg Tablet PO ×2 (08:45→16:44)
[2024-09-14] MEDS: metoprolol tartrate 25 mg Tablet PO ×2 (08:45→16:44)
--- NOTE | 2024-09-14 08:47 | P.PN_ITS ---
Subjective 2 Subjective: on insulin drip for DKA Medications: Reviewed: Yes Vitals/I&O/Wt Last Vital Signs Temp 98.1 F 09/14/24 05:20 Pulse 66 09/14/24 06:00 Resp 21 H 09/14/24 06:00 BP 130/65 09/14/24 08:44 Pulse Ox 93 09/14/24 06:00 O2 Del Method Room Air 09/14/24 06:00 09/13/24 09/14/24 09/14/24 22:59 06:59 14:59 Intake Total 2732.534 / 2794.834 1371.166 / 4166.000 8.833 / 8.833 Output Total 80 / 80 Balance 2732.534 / 2794.834 1291.166 / 4086.000 8.833 / 8.833 Weight last 48 hrs Weight 76.929 kg Weight 76.929 kg Weight 77 kg Physical Exam 2 Narrative: , no distress HEENT, S1-S2 regular rate and rhythm per report Lungs clear per report No pedal edema Data 09/14/24 02:05 09/14/24 06:20 Micro: Microbiology 09/14/24 00:40 Stool Lactoferrin - Final Stool Occult Blood (FIT) - Final 09/13/24 09:05 Blood Culture - Preliminary Blood SPECIMEN COLLECTED 09/13/24 09:00 Blood Culture - Preliminary Blood SPECIMEN COLLECTED A&P Assessment and plan (1) ESRD (end stage renal disease) on dialysis: Plan 1. End-stage renal disease: HD today 2. Nausea vomiting diarrhea: Likely viral gastroenteritis, supportive care 3. DKA : transferred to ICU and on Insulun gtt 3. Coffee-ground emesis, checking serial hemoglobin On Protonix 4. History of type I diabetes type 2 5. Anemia: Hemoglobin 10.2 , monitor Patient evaluated using audiovisual cart. Time spent 40 minutes.- Attestations 2 Medical Necessity Statement*: PER KEL Coding Level of Care Code Acute Code for Chg Fwd Diagnoses ESRD (end stage renal disease) on dialysis N18.6; Z99.2
[2024-09-14 08:50] LABS: Glucose Point of Care 116 mg/dL (70-110)
[2024-09-14 09:39] LABS: Anion Gap 21.2 (5-19); Calcium 8.1 mg/dL (8.5-10.5); Carbon Dioxide 20 mmol/L (22-29); Chloride 89 mmol/L (98-107); Creatinine Clr Calc Pharmacy 9.9868; Glomerular Filtration Rate 5.2 mL/min (90-130); Glucose 122 mg/dL (65-115); Osmolality Calculated 291 mOsm/kg (285-295); Potassium 4.2 mmol/L (3.5-5.1); Sodium 126 mmol/L (136-145)
[2024-09-14 09:47] LABS: Glucose Point of Care 121 mg/dL (70-110)
[2024-09-14 09:47] LABS: Blood Urea Nitrogen 90 mg/dL (6-20)
[2024-09-14 10:53] LABS: Glucose Point of Care 133 mg/dL (70-110)
[2024-09-14 11:58] LABS: Glucose Point of Care 128 mg/dL (70-110)
[2024-09-14] MEDS: heparin, porcine 1,000 unit/mL INJ 10 mL 1000 UNIT IV (12:23)
--- NOTE | 2024-09-14 12:50 | PC.HD ---
Patient exclusively using LAVG for dialysis access, although R IJ HD catheter remains in place. Catheter dressing changed, lines flushed, heparin instilled, catheter capped. No s/s of infection noted.
[2024-09-14 12:55] LABS: Anion Gap 25.2 (5-19); Calcium 7.7 mg/dL (8.5-10.5); Carbon Dioxide 18 mmol/L (22-29); Chloride 89 mmol/L (98-107); Glomerular Filtration Rate 5.1 mL/min (90-130); Glucose 139 mg/dL (65-115); Osmolality Calculated 294 mOsm/kg (285-295); Potassium 4.2 mmol/L (3.5-5.1); Sodium 128 mmol/L (136-145)
[2024-09-14 13:01] LABS: Blood Urea Nitrogen 86 mg/dL (6-20); Creatinine Clr Calc Pharmacy 9.8146
[2024-09-14 13:48] LABS: Glucose Point of Care 133 mg/dL (70-110)
[2024-09-14 14:06] LABS: Glucose Point of Care 131 mg/dL (70-110)
[2024-09-14 14:55] LABS: Glucose Point of Care 130 mg/dL (70-110)
--- NOTE | 2024-09-14 16:00 | P.PN_ITS ---
Subjective 2 Subjective: Patient was seen this morning, he he denies any nausea or vomiting throughout the night, no diarrhea, he remains in diabetic ketoacidosis, anion gap remains prolonged, plan for dialysis this morning, remains on insulin drip, blood sugars in the 150s to 200s, Vitals/I&O/Wt Last Vital Signs Temp 98.4 F 09/14/24 15:33 Pulse 58 L 09/14/24 15:33 Resp 16 09/14/24 15:33 BP 140/71 09/14/24 15:33 Pulse Ox 96 09/14/24 14:00 O2 Del Method Room Air 09/14/24 06:00 09/14/24 09/14/24 09/14/24 06:59 14:59 22:59 Intake Total 1371.166 / 4166.000 752.466 / 752.466 500 / 1252.466 Output Total 80 / 80 80 / 80 2500 / 2580 Balance 1291.166 / 4086.000 672.466 / 672.466 -2000 / -1327.534 Weight last 48 hrs Weight 78 kg Weight 76.929 kg Weight 76.929 kg Physical Exam 2 Const: COMMON NORMALS: no acute distress and patient oriented x3 Resp: COMMON NORMALS: normal respiratory effort, No retractions, No use of accessory muscles and clear to auscultation bilaterally AUSCULTATION: clear to auscultation bilaterally Cardio: COMMON NORMALS: regular rate, regular rhythm, S1 normal heart sound present and S2 normal heart sound present RATE: regular rate RHYTHM: r egular rhythm HEART SOUNDS: S1 normal heart sound present and S2 normal heart sound present GI: COMMON NORMALS: Normal to inspection, nondistended, normoactive bowel sounds present and non-tender Extremity: COMMON NORMALS: no pedal edema Neuro: COMMON NORMALS: patient oriented x3 Psych: COMMON NORMALS: mental status grossly normal Data 09/14/24 02:05 09/14/24 12:22 Micro: Microbiology 09/11/24 16:11 Blood Culture - Preliminary Blood Staphylococcus epidermidis 09/13/24 09:05 Blood Culture - Preliminary Blood NEGATIVE TO DATE 09/13/24 09:00 Blood Culture - Preliminary Blood NEGATIVE TO DATE 09/14/24 00:40 Stool Lactoferrin - Final Stool Occult Blood (FIT) - Final A&P Assessment and plan (1) Viral gastroenteritis: (2) Intractable nausea and vomiting: (3) Coffee ground emesis: (4) Hypertension, uncontrolled: (5) Type 1 diabetes: (6) ESRD (end stage renal disease) on dialysis: (7) Dehydration: (8) Staphylococcus epidermidis bacteremia: (9) Diabetic ketoacidosis: Plan Diabetic ketoacidosis, ketones positive, bicarb 18, anion gap 25.2, blood sugar 130 ? Plan ? Moved to ICU ? t DKA protocol # Insulin drip # Monitor blood sugars q. hourly ? Maintain potassium greater than 4.5 ? Check a BMP every 4 hours ? Once blood sugar is less than 200 will transition to D5 half-normal saline with 20 KCl -Continue normal saline at 125 cc -Once anion gap less than 14, switch to subcu insulin Coffee-ground emesis, resolved # Likely from retching, nausea, vomiting ? However cannot rule out upper GI bleed for Nancy-Will tear ? Monitor hemoglobins # Nausea control with Zofran, Reglan ? Protonix, Carafate ? N.p.o. sips and chips # Monitor clinical status closely Intractable, nausea, vomiting ? Nausea control gastroenteritis, dehydration Concerns for gastroenteritis ? IV fluids -Zosyn COVID-19, associate with diarrhea, colitis End-stage renal disease Leukocytosis, CRP, Pro-Asael, sed rate, blood cultures, chest x-ray within normal limits, UA unremarkable Type 1 diabetes End-stage renal disease, missed dialysis, plan on dialysis today Staph epidermidis bacteremia -1 out of 3 blood cultures, likely contamination -Repeat blood cultures -Vancomycin Attestations 2 Medical Necessity Statement*: Patient requires hospitalization for diabetic ketoacidosis, requiring insulin drip Coding Level of Care Code Critical Care >/= 30 minutes Critical care time (in minutes): 35 The high probability of a clinically significant, sudden or life threatening deterioration, as referenced in this documentation, required my full and direct attention, intervention and personal management. The critical care time shown is in addition to time spent performing any reported separately billable procedures and includes the following: [x] Data and vital sign review and interpretation [x ] Patient assessment, examination and intervention [x] Medication orders and management [x] Patient/Family updates as able [x] Care Coordination and Documentation. Diagnoses Viral gastroenteritis A08.4 Intractable nausea and vomiting R11.2 Coffee ground emesis K92.0 Hypertension, uncontrolled I10 Type 1 diabetes E10.9 ESRD (end stage renal disease) on dialysis N18.6; Z99.2 Dehydration E86.0 Staphylococcus epidermidis bacteremia R78.81; B95.7 Diabetic ketoacidosis E11.10
[2024-09-14] MEDS: VANCOMYCIN ADD-Vantage 750 MG in 0.9% NaCl ADD-Vantage 250 ML 250 MG IV (16:40)
[2024-09-14] MEDS: pantoprazole DR 40 mg Tablet PO (16:46)
[2024-09-14 17:02] LABS: Blood Urea Nitrogen 50 mg/dL (6-20); Calcium 8.3 mg/dL (8.5-10.5); Carbon Dioxide 20 mmol/L (22-29); Chloride 92 mmol/L (98-107); Creatinine Clr Calc Pharmacy 15.0632; Glomerular Filtration Rate 8.2 mL/min (90-130); Glucose 247 mg/dL (65-115); Osmolality Calculated 292 mOsm/kg (285-295); Sodium 130 mmol/L (136-145)
--- NOTE | 2024-09-14 17:30 | PC.NURSE ---
ion gap remain above 20 pt very restless and upset requesting food and to go home offered snack pt stated no im just done with all this , explained risk and possible recurrent illness mortality reminded him to please come back if he feel ill or gets sicker . with pt at time
--- NOTE | 2024-09-15 08:36 | PM.DCS ---
Discharge Providers Date of Admission: 09/11/24 14:50 Date of Discharge: September 15, 2024 Attending Provider at Admission: Marv Rodriguez MD Attending Provider at Discharge: Marv Rodriguez MD Primary Care Provider: Ko Crabtree MD Diagnoses at Discharge Discharge Diagnosis (1) Viral gastroenteritis: Status: Acute (2) Intractable nausea and vomiting: Status: Acute (3) Coffee ground emesis: Status: Acute (4) Hypertension, uncontrolled: Status: Acute (5) Type 1 diabetes: Status: Acute (6) ESRD (end stage renal disease) on dialysis: Status: Acute (7) Dehydration: Status: Acute (8) Staphylococcus epidermidis bacteremia: Status: Acute (9) Diabetic ketoacidosis: Status: Resolved Reason for Visit Reason for Visit: vomiting Hospital Course Hospital Course Kaden Lozano is a 34 year old male with a past medical history of end-stage renal disease on hemodialysis, history of type 1 diabetes, who presents [facility] due to nausea, vomiting, diarrhea, abdominal pain, coffee-ground emesis for the last 24 hours. Patient tells me the last 24 hours, he has had flulike symptoms, sinus congestion, associate with nausea, vomiting, diarrhea, diffuse abdominal pain, does report coffee-ground emesis. In the emergency room he was noted to have coffee-ground emesis, Gastroccult positive, no sick contacts, no recent travel, he missed hemodialysis yesterday, in the emergency room he is anion gap was 27.9, bicarb is 26, his serum ketones is negative, pH is within normal limits, CT abdomen pelvis shows mild small bowel wall thickening and edema, he is hypertensive in the emergency room, he tells me he has not taken his blood pressure medication due to nausea vomiting, hemoglobin 11.8 Patient was admitted to [facility] for intractable nausea, vomiting, and coffee-ground emesis, missed dialysis, gastroenteritis, COVID-19 For his intractable nausea, vomiting monitored as inpatient, received IV fluids, nausea control, overall clinically improved, left AGAINST MEDICAL ADVICE First coffee-ground emesis, no recurrent episodes 48 hours before he left AGAINST MEDICAL ADVICE, hemoglobin has been stable, hemodynamics stable, patient left AGAINST MEDICAL ADVICE For gastroenteritis, management with IV fluids, IV Zosyn, no recurrent complaints of diarrhea, left AGAINST MEDICAL ADVICE For COVID-19, afebrile, not requiring oxygen, possible associated colitis, no recurrent diarrhea, left AGAINST MEDICAL ADVICE For Staph epidermidis bacteremia, 1 out of 3 blood cultures positive, denies any IV drug use, managed on IV vancomycin, findings likely representing contaminated specimen, repeat blood cultures are so far negative, commended continued inpatient monitoring until repeat blood cultures were negative for 48 to 72 hours, discussed morbidity and mortality against leave AGAINST MEDICAL ADVICE, patient voices understanding, all question answered, left AGAINST MEDICAL ADVICE. Patient developed diabetic ketoacidosis during his hospitalization, due to intractable nausea, vomiting. He was moved to the ICU managed on insulin drip, received IV insulin, IV fluid therapy, potassium replacement therapy, inpatient dialysis. The evening of 09/14/2024, patient was adamant about going home, adamant about eating, his bicarb was 20, anion gap was 22. I recommended continued inpatient monitoring on insulin drip, monitoring his BMP every 4 hours, he was adamant about going home. I had also acquiesced to his requests (had given him sugar-free Jell-O, and drinks) and was willing to give him a snack however he was adamant about going home, and adamant about eating what ever he wanted. Discussed with him personally and through nursing staff the morbidity and mortality associated with diabetic ketoacidosis, leaving as medical advice, he voiced understanding, all questions answered, adamant about going home and eating what ever he wanted, he left AGAINST MEDICAL ADVICE. Just before he left I recommended for him to watch his blood sugars every hour if possible, continue insulin sliding scale, continue his home glargine, continue to hydrate very well. Discussed with him that if his blood sugars were greater than 500 come back to the hospital. If his blood sugars less than 60 during orange juice or eat hard candy and immediately all 911. Discussed with him that if he were to have any worsening nausea, vomiting, diarrhea concerns for diabetic ketoacidosis immediately call 911 or come back to the hospital. Discharge Data Studies Completed and Pending Completed Studies During Hospitalization Category Date Time Status CT abdomen pelvis w con* [id number] Stat Cat Scan 09/11/24 12:37 Completed XR chest 1V portable [id number] Routine Exams 09/11/24 16:28 Completed Pending at discharge Category Date Time Status Blood Culture AM LABS Lab 09/13/24 09:05 Results Blood Culture Stat Lab 09/11/24 16:11 Results OVA and Parasites, Conc and PE Routine Lab 09/13/24 10:05 Received Salmonella / Shigella / Campy Routine Lab 09/13/24 10:05 Received Radiology Impressions Abdomen/Pelvis CT 09/11/24 12:37 IMPRESSION: 1. No free air or ascites. 2. Mild small bowel wall thickening and edema. Most likely viral enteritis. No obstructive pattern. 3. No renal obstruction. 4. Mild atherosclerosis abdominal aorta. Chest X-Ray 09/11/24 16:28 IMPRESSION: As above. Laboratory Results WBC 13.08 10^3/uL (3.29-11.43) H 09/14/24 02:05 RBC 3.33 10^6/uL (3.85-5.65) L 09/14/24 02:05 Hgb 9.40 g/dL (11.27-16.99) L 09/14/24 02:05 Hct 27.7 % (37-53) L 09/14/24 02:05 MCV 83.2 fl (82-101) D 09/14/24 02:05 MCH 28.2 pg (27-33) 09/14/24 02:05 MCHC 33.9 g/dL (30-55) D 09/14/24 02:05 RDW 14.1 % (12.1-15.1) 09/14/24 02:05 Plt Count 203 10^3/cmm (157-399) 09/14/24 02:05 MPV 10.0 fL (7.4-10.4) 09/14/24 02:05 Neut % (Auto) 74.2 % 09/14/24 02:05 Lymph % (Auto) 15.7 % 09/14/24 02:05 Ada % (Auto) 8.1 % 09/14/24 02:05 Eos % (Auto) 1.1 % 09/14/24 02:05 Baso % (Auto) 0.4 % 09/14/24 02:05 Neut # (Auto) 9.72 10^3/uL (1.8-7.7) H 09/14/24 02:05 Lymph # (Auto) 2.1 10^3/uL (0.8-4.8) 09/14/24 02:05 Ada # (Auto) 1.1 10^3/uL (0.2-0.9) H 09/14/24 02:05 Eos # (Auto) 0.1 10^3/uL (0.0-0.8) 09/14/24 02:05 Baso # (Auto) 0.1 10^3/uL (0.0-0.1) 09/14/24 02:05 Nucleated RBC % (auto) 0 % 09/14/24 02:05 Nucleated RBCs # 0.0 /100WBC 09/14/24 02:05 ESR 20 mm/hr (0-10) H 09/13/24 09:00 PT 15.80 SECONDS (12.1-14.9) H 09/11/24 16:06 INR 1.22 (0.8-1.2) H 09/11/24 16:06 APTT 29.2 SECONDS (23.9-36.7) 09/11/24 16:06 Specimen Type Arterial 09/11/24 10:55 Sample Site Radial, right 09/11/24 10:55 ABG pH 7.46 (7.35-7.45) H 09/11/24 10:55 ABG pCO2 39.6 mmHg (35-45) 09/11/24 10:55 ABG pO2 63.9 mmHg (80.0-100.0) L 09/11/24 10:55 ABG PO2/FiO2 Ratio 304 09/11/24 10:55 ABG HCO3 28.0 mmol/L (22-26) H 09/11/24 10:55 ABG O2 Saturation 93.8 09/11/24 10:55 ABG Base Excess 3.9 mmol/L (-2.0-2.0) H 09/11/24 10:55 Braulio Test Pos 09/11/24 10:55 A-a O2 Gradient 4.8 mmHg (5-10) L 09/11/24 10:55 Hematocrit 36.1 % (42-52) L 09/11/24 10:55 Hgb O2 Saturation 91.9 % (95-100) L 09/11/24 10:55 Carboxyhemoglobin 0.9 %THgb (0.4-20.1) 09/11/24 10:55 Methemoglobin 1.2 % (0.4-1.5) 09/11/24 10:55 Total Hemoglobin 11.8 g/dL (14-18) L 09/11/24 10:55 Sodium 141.0 mmol/L (131-143) 09/11/24 10:55 Potassium 3.7 mmol/L (3.5-5.0) 09/11/24 10:55 Glucose 194.0 mg/dL (70-115) H 09/11/24 10:55 Ionized Calcium 1.1 mmol/L (1.1-1.4) 09/11/24 10:55 O2 Delivery Device Room air 09/11/24 10:55 FiO2 21.0 % 09/11/24 10:55 Block Cableman ID Walci 09/11/24 10:55 Sodium 130 mmol/L (136-145) L 09/14/24 16:22 Potassium 4.0 mmol/L (3.5-5.1) 09/14/24 16:22 Chloride 92 mmol/L (98-107) L 09/14/24 16:22 Carbon Dioxide 20 mmol/L (22-29) L 09/14/24 16:22 Anion Gap 22.0 (5-19) H 09/14/24 16:22 BUN 50 mg/dL (6-20) H 09/14/24 16:22 Creatinine 7.6 mg/dL (0.7-1.2) H* 09/14/24 16:22 GFR Calculation 8.2 mL/min (90-130) L 09/14/24 16:22 Glucose 247 mg/dL (65-115) H 09/14/24 16:22 POC Glucose 130 mg/dL (70-110) H 09/14/24 14:51 Estimat Average Glucose 192 09/11/24 11:26 Hemoglobin A1c 8.3 % (4.0-6.0) H 09/11/24 11:26 Calculated Osmolality 292 mOsm/kg (285-295) 09/14/24 16:22 Lactic Acid 1.0 mmol/L (0.5-2.2) 09/11/24 16:06 Calcium 8.3 mg/dL (8.5-10.5) L 09/14/24 16:22 Phosphorus 6.4 mg/dL (2.5-4.5) H 09/14/24 02:05 Magnesium 2.7 mg/dL (1.7-2.3) H 09/14/24 02:05 Total Bilirubin 0.2 mg/dL (0.15-1.2) 09/14/24 02:05 AST 20 U/L (0-40) 09/14/24 02:05 ALT 19 U/L (0-41) 09/14/24 02:05 Alkaline Phosphatase 46 U/L (40-130) 09/14/24 02:05 C-Reactive Protein 25.9 mg/L (0.0-4.9) H 09/13/24 12:12 Total Protein 5.5 g/dL (6.6-8.7) L 09/14/24 02:05 Albumin 3.2 g/dL (3.5-5.2) L 09/14/24 02:05 Globulin 2.3 g/dL (1.3-4.6) 09/14/24 02:05 Triglycerides 110 mg/dL (0-150) 09/11/24 16:06 Cholesterol 117 mg/dL (0-200) 09/11/24 16:06 LDL Cholesterol, Calc 62 mg/dL (50-129) 09/11/24 16:06 HDL Cholesterol 33 mg/dL (60-100) L 09/11/24 16:06 LDL/HDL Ratio 1.88 RATIO (0.00-3.22) 09/11/24 16:06 Cholesterol/HDL Ratio 3.55 mg/dL (1.0-5.00) 09/11/24 16:06 Lipase 14 U/L (13-60) 09/11/24 11:26 Procalcitonin 1.95 ng/mL (0-0.5) H 09/13/24 12:12 TSH 3.17 uIU/mL (0.27-4.20) 09/11/24 16:06 Urine Color Yellow (Yellow) 09/11/24 14:10 Urine Appearance Clear (CLEAR) 09/11/24 14:10 Urine pH 7.5 (5-7) 09/11/24 14:10 Ur Specific [place] 1.019 (1.005-1.030) 09/11/24 14:10 Urine Protein 3+ (Negative) A 09/11/24 14:10 Urine Glucose (UA) Trace (Normal) H 09/11/24 14:10 Urine Ketones Trace (Negative) 09/11/24 14:10 Urine Blood Negative (Negative) 09/11/24 14:10 Urine Nitrate Negative (Negative) 09/11/24 14:10 Urine Bilirubin Negative (Negative) 09/11/24 14:10 Urine Urobilinogen 0.2 mg/dL (Negative) 09/11/24 14:10 Ur Leukocyte Esterase Negative (Negative) 09/11/24 14:10 Urine RBC 0-2 /hpf (0-2) 09/11/24 14:10 Urine WBC 0-5 /hpf (0-5) 09/11/24 14:10 Ur Squamous Epith Cells 0-5 /hpf (0-5) 09/11/24 14:10 Amorphous Sediment Not Reportable 09/11/24 14:10 Urine Bacteria None seen /hpf (NONE) 09/11/24 14:10 Hyaline Casts 0.81 /lpf 09/11/24 14:10 Gastric Occult Blood Positive (Negative) H 09/11/24 12:16 Urine Opiates Screen Negative ng/mL (Negative) 09/13/24 23:50 Ur Barbiturates Screen Negative ng/mL (Negative) 09/13/24 23:50 Ur Phencyclidine Scrn Negative ng/mL (Negative) 09/13/24 23:50 Ur Amphetamines Screen Negative ng/mL (Negative) 09/13/24 23:50 U Benzodiazepines Scrn Negative ng/mL (Negative) 09/13/24 23:50 Urine Cocaine Screen Negative ng/mL (Negative) 09/13/24 23:50 U Marijuana (THC) Screen Positive ng/mL (Negative) H 09/13/24 23:50 Serum Ketones Positive (Negative) H 09/13/24 09:00 C. difficile (PCR) Negative (Negative) 09/14/24 00:40 Coronavirus (PCR) Positive (Negative) A 09/11/24 15:02 Hep Bs Antigen Non-reactive (Nonreactive) 09/11/24 11:26 Hep Bs Antibody > 1000.0 (11.5-1000) H 09/11/24 11:26 Influenza A (PCR) Negative (Negative) 09/11/24 15:02 Influenza Type B (PCR) Negative (Negative) 09/11/24 15:02 RSV (PCR) Positive (Negative) 09/11/24 15:02 Vitals Last Vital Signs Temp 98.4 F 09/14/24 16:00 Pulse 62 09/14/24 16:00 Resp 19 H 09/14/24 16:00 BP 130/95 09/14/24 16:45 Pulse Ox 97 09/14/24 16:00 O2 Del Method Room Air 09/14/24 06:00 Discharge Plan Discharge Patient Disposition: Left Against Medical Advice Condition: Stable Prescriptions: Continued hydralazine 25 mg tablet 25 mg PO QID metoprolol tartrate 25 mg tablet 25 mg PO BID amlodipine 10 mg tablet 10 mg PO DAILY famotidine 20 mg tablet 20 mg PO DAILY PRN (Reason: Acid Reflux) (DME) Diabetic shoes See Rx Instructions .Route .MEDSUPPLY Qty: 1 0RF Rx Instructions: 3 pairs of inserts DME is (HOME) (DME) glucometer testing kit See Rx Instructions .Route .MEDSUPPLY Qty: 1 0RF Rx Instructions: Glucometer testing kit Lancets #100, strips #100 lisinopril 20 mg tablet 20 mg PO BID carvedilol 25 mg tablet 25 mg PO BID clonidine HCl 0.1 mg tablet 0.1 mg PO BID lidocaine-prilocaine 2.5-2.5 % cream See Rx Instructions .ROUTE .COMPLEX Rx Instructions: APPLY SMALL AMOUNT TO ACCESS SITE (AVF) 1 TO 2 HOURS BEFORE DIALYSIS. COVER WITH OCCLUSIVE DRESSING (SARAN WRAP). sodium bicarbonate 650 mg tablet 650 mg PO BID calcitriol 0.5 mcg capsule 0.5 mcg PO DAILY gentamicin 0.1 % cream See Rx Instructions .ROUTE .COMPLEX Rx Instructions: 1 applic topically to exit site every treatment. ergocalciferol (vitamin D2) [Vitamin D2] 1,250 mcg (50,000 unit) capsule 1,250 mcg PO Q7D sevelamer carbonate 800 mg tablet 800 mg PO QID Fiasp FlexTouch U-100 Insulin 100 unit/mL (3 mL) insulin pen 5 unit SUBCUT TID MDD 15 units RenaPlex-D 800 mcg-12.5 mg -2,000 unit tablet 1 tab PO QPM Baqsimi 3 mg/actuation spray,non-aerosol 3 mg INTRANASAL PRN PRN (Reason: low bs) insulin glargine-yfgn [Semglee(insulin glarg-yfgn)Pen] 100 unit/mL (3 mL) insulin pen 22 unit SUBCUT BEDTIME ondansetron HCl 4 mg tablet 4 mg PO Q8H PRN (Reason: nausea and vomiting) Qty: 14 0RF Referrals: Ko Crabtree MD [Primary Care Provider] - Patient Instructions: Dialysis Nutrition Plan (DC), Hemodialysis (DC) Discharge Attestations Time Spent in Discharge Care*: greater than 30 min Quality Metrics Clinical Quality Measures [ No reported AMI, CVA or VTE this stay] Coding Level of Care Code 07610 Total time (in minutes) for Discharge: 35 Diagnoses Viral gastroenteritis A08.4 Intractable nausea and vomiting R11.2 Coffee ground emesis K92.0 Hypertension, uncontrolled I10 Type 1 diabetes E10.9 ESRD (end stage renal disease) on dialysis N18.6; Z99.2 Dehydration E86.0 Staphylococcus epidermidis bacteremia R78.81; B95.7 Diabetic ketoacidosis E11.10
== END 2024-09-14 18:00 | disposition left against medical advice (07) | DRG 177 ==
LOC: ER 14:31 → MEDSURG 14:51 → ICU 09-13 10:39
PROVIDERS: Hospitalist; Internal Medicine; Admitting Provider Family Medicine; Emergency Provider Emergency Medicine; PCP Family Medicine; Visit Provider Family Medicine
DX: U07.1 COVID-19 (principal); E10.10 Type 1 diabetes mellitus with ketoacidosis without coma; N18.6 End stage renal disease; K92.0 Hematemesis; I12.0 Hypertensive chronic kidney disease with stage 5 chronic kidney disease or end stage renal disease; R78.81 Bacteremia; A08.4 Viral intestinal infection, unspecified; E10.22 Type 1 diabetes mellitus with diabetic chronic kidney disease; E86.0 Dehydration; B95.7 Other staphylococcus as the cause of diseases classified elsewhere; Z53.29 Procedure and treatment not carried out because of patient's decision for other reasons; Z87.891 Personal history of nicotine dependence; Z99.2 Dependence on renal dialysis
CPT/HCPCS: 36415; 36416; 36600; 71045; 74177; 80048; 80051; 80053; 80061; 80306; 81001; 82009; 82271; 82274; 82330; 82805; 82962; 83036; 83605; 83630; 83690; 83735; 84100; 84145; 84443; 85014; 85018; 85025; 85610; 85651; 85730; 86140; 86706; 87040; 87045; 87077; 87150; 87177; 87186; 87205; 87209; 87340; 87427; 87449; 87493; 87637; 90935; 93005; 94664; 96372; 96374; 96375; 96376; 99285; J0360; J1200; J1644; J1815; J2060; J2405; J2470; J2543; J2550; J2765; J3370; J3372; J7030; J7040; J7050; Q3014

== ENCOUNTER → 2025-01-07 14:27 | Outpatient (BNVA) | payer MEDICARE, SELFPAY | PROVIDERS: PCP Family Medicine; Visit Provider Podiatrist Foot & Ankle Surgery | DX: E10.42 Type 1 diabetes mellitus with diabetic polyneuropathy (principal); L60.3 Nail dystrophy; L84 Corns and callosities; G62.9 Polyneuropathy, unspecified; Z79.4 Long term (current) use of insulin | CPT/HCPCS: 11055; 11721 ==

== ENCOUNTER → 2025-03-11 15:00 | Outpatient (BNVA) | payer MEDICARE, SELFPAY | PROVIDERS: PCP Family Medicine; Visit Provider Podiatrist Foot & Ankle Surgery | DX: E10.42 Type 1 diabetes mellitus with diabetic polyneuropathy (principal); L60.3 Nail dystrophy; G62.9 Polyneuropathy, unspecified; Z79.4 Long term (current) use of insulin | CPT/HCPCS: 11055; 11721 ==

== ENCOUNTER 2025-03-12 21:52 | Emergency (ER) | payer MEDICARE, MEDICAID, SELFPAY ==
[2025-03-12 21:53] VITALS: BP 171/82; PULSE 51; RESP 16; TEMP 36.8; O2SAT 99; BMI 21.7
--- OUTSIDE RECORDS SUMMARY | 2025-03-12 21:58 | XMS_ITS | Data Portability ---
Author Organization [facility] Elias Harrison [facility] Robin Moreno [facility] Address [address] [address] Assessment No assessment recorded. Plan of Treatment Reminders Order Date Submit Date Provider Last Modified By Organization Details Last Modified Time Details Appointments RECHECK 2024 02:00P George Crabtree MD Not available Not available Not available Lab None recorded. Referral None recorded. Procedures None recorded. Surgeries None recorded. Imaging None recorded. Medication Orders ondansetr on HCl 4 mg tablet 2024 025 [facility], [address], [place], [address], 12/22/2024 10:42:41 azithromy fly 250 mg tablet 2024 025 [facility], [address], [place], [address], 12/22/2024 10:42:41 albuterol sulfate HFA 90 mcg/actua tion aerosol inhaler 2024 025 [facility], [address], [place], [address], 12/22/2024 10:42:40 promethaz ine-DM 6.25 mg-15 mg/5 mL oral syrup 2024 025 [facility], [address], [place], [address], 12/22/2024 10:42:38 Glucagon Emergency Kit 1 mg solution for injection [address] [facility] [address], [address], [place], [address], 10/07/2024 14:46:31 clindamyc in HCl 300 mg capsule [address] [facility] [address], [address], [place], [address], 07/04/2024 15:49:06 tramadol 50 mg tablet [email or web address], [address], [place], [address], 07/04/2024 15:50:09 Patient TargetsNo targets recorded. Patient Instructions Encounter Date Encounter Id Patient Instructions Last Modified By Organization Details Last Modified Time 07/04/2024 [id number] He will have all of his specialists begin sending me reports. [email or web address] Not available 07/04/2024 16:47:27 Reason for Referral None Reported. Problems Name Problem SNOMED Code Status Onset Date Resolution Date Notes Provider Name and Address Organization Details Recorded Time Cellulitis 039565039 Completed 202212/22/2024 ASHLEY zapien [facility] 5 10:30:00 End stage renal failure on dialysis 013232632 Active 2023 FABIÁN azpien [facility] 4 15:54:45 Hypertensiv e disorder 59498912 Active 2023 FABIÁN zapien [facility] 4 15:54:36 Diabetes mellitus 36661548 Active 2023 FABIÁN zapien [facility] 4 15:54:53 Essential hypertensio n 73518507 Active 2023 ASHLEY LIPSCOMB null, [facility] 10:30:06 Acute bronchitis 32645827 Active 2024 Ko Crabtree MD [address] [place], [address], [facility], Robin 5 10:39:23 Nausea and vomiting 04629589 Active 2024 Ko Crabtree MD [address] [place], [address], [facility], Robin 10:39:53 Problem Notes None recorded. Procedures Surgical History Date Name Laterality Status Provider Name and Address Organization Details Recorded Time [facility] [facility], Robin 07/04/2024 15:55:52 Imaging Results None recorded. Procedure Notes None recorded. Medical Equipment None Reported. Allergies No known drug allergies Medications Name Sig Start Date Stop Date Status Note LastModified by Organization Details LastModified Time easy touch twist USE DIRECTED active Not Available Not Available No t Available promethazin e-DM 6.25 mg-15 mg/5 mL oral syrup TAKE 10 ML BY MOUTH EVERY 4 HOURS NEEDED active Not Available Not Available No t Available carvedilol 25 mg tablet TAKE 1 TABLET BY MOUTH TWICE DAILY active Not Available Not Available No t Available clonidine HCl 0.1 mg tablet TAKE 1 TABLET BY MOUTH TWICE DAILY active Not Available Not Available No t Available clindamycin HCl 300 mg capsule Take 2 capsules every 8 hours by oral route for 7 days. 07/04 completed Not Available Not Available Not Available azithromyci n 250 mg tablet TAKE 2 TABLETS BY MOUTH ON DAY 1, AND THEN TAKE 1 TABLET BY MOUTH ONCE A DAY ON DAY 2 THROUGH DAY 5 active Not Available Not Available No t Available Glucagon Emergency Kit 1 mg solution for injection Take 1 mg as needed by injection route, for low sugar. active Not Available Not Available No t Available lisinopril 20 mg tablet TAKE 1 TABLET BY MOUTH TWICE DAILY 12/22 completed Not Available Not Available Not Available ondansetron HCl 4 mg tablet TAKE 1 TABLET BY MOUTH 4 TIMES DAILY NEEDED active Not Available Not Available No t Available hydralazine 25 mg tablet TAKE 1 TABLET BY MOUTH IN THE MORNING, TAKE 1 TABLET AT NOON AND TAKE 2 TABLETS AT BEDTIME active Not Available Not Available No t Available tramadol 50 mg tablet Take 1 tablet every 6 hours by oral route as needed. 07/04 completed Not Available Not Available Not Available lidocaine-p rilocaine 2.5 %-2.5 % topical cream APPLY SMALL AMOUNT TO ACCESS SITE (AVF) 1 TO 2 HOURS BEFORE DIALYSIS. COVER WITH OCCLUSIVE DRESSING (SARAN WRAP) active Not Available Not Available No t Available famotidine 20 mg tablet TAKE 1 TABLET BY MOUTH EVERY DAY NEEDED active Not Available Not Available No t Available sodium bicarbonate 650 mg tablet TAKE 1 TABLET BY MOUTH TWICE DAILY active Not Available Not Available No t Available amlodipine 10 mg tablet TAKE 1 TABLET BY MOUTH EVERY DAY active Not Available Not Available No t Available calcitriol 0.5 mcg capsule TAKE 1 CAPSULE BY MOUTH EVERY DAY 10/07 completed Not Available Not Available Not Available gentamicin 0.1 % topical cream APPLY TO EXIT SITE EVERY TREATMENT active Not Available Not Available No t Available albuterol sulfate HFA 90 mcg/actuati on aerosol inhaler INHALE 2 PUFFS BY MOUTH EVERY 4 HOURS NEEDED active Not Available Not Available No t Available Vitamin D2 1,250 mcg (50,000 unit) capsule TAKE 1 CAPSULE BY MOUTH ONCE WEEKLY 10/07 completed Not Available Not Available Not Available lisinopril 40 mg tablet TAKE 1 TABLET BY MOUTH AT BEDTIME active Not Available Not Available No t Available insulin aspart (U-100) 100 unit/mL (3 mL) subcutaneou s pen INJECT 1 UNIT SUBCUTANE OUSLY THREE TIMES DAILY active Not Available Not Available No t Available metoprolol tartrate 25 mg tablet TAKE 1 TABLET BY MOUTH TWICE DAILY 10/07 completed Not Available Not Available Not Available Lantus Solostar U-100 Insulin 100 unit/mL (3 mL) subcutaneou s pen INJECT 20 UNITS EVERY DAY AT BEDTIME active Not Available Not Available No t Available Vital-D Rx 1,750 unit-60 mg-1 mg-12.5 mg tablet TAKE 1 TABLET BY MOUTH EVERY EVENING active Not Available Not Available No t Available sevelamer carbonate 800 mg tablet TAKE 3 TABLETS BY MOUTH THREE TIMES A DAY WITH MEALS AND 3 TABLETS DAILY WITH A SNACK active Not Available Not Available No t Available Embrace PRO Blood Glucose Meter USE DIRECTED active Not Available Not Available No t Available Embrace PRO test strips USE DIRECTED active Not Available Not Available No t Available TRUEplus Pen Needle 31 gauge x 3/16 USE DAILY with insulin pen active Not Available Not Available No t Available Fiasp FlexTouch U-100 Insulin 100 unit/mL (3 mL) subcutaneou s pen INJECT 5 UNITS SUBCUTANE OUSLY 3 TIMES DAILY WITH MEALS (MAX DAILY DOSE 15 UNITS) active Not Available Not Available No t Available RenaPlex-D 800 mcg-12.5 mg-2,000 unit tablet TAKE 1 TABLET BY MOUTH EVERY EVENING active Not Available Not Available No t Available Embrace Lancing Device with Ejector USE DIRECTED active Not Available Not Available No t Available Vitals Date Recorded Body height Body mass index (BMI) Body weight Heart rate Systolic blood pressure Diastolic blood pressure Provider Name and Address Organization Details Last Updated DateTime 5 182.88 cm 23.3 kg/m2 54567.8 9 g 52 /min 120 mm[Hg] 74 mm[Hg] [facility] 14:13:23 Date Recorded Body height Body mass index (BMI) Body weight Heart rate Body temperature Systolic blood pressure Diastolic blood pressure Provider Name and Address Organization Details Last Updated DateTime 5 182.88 cm 21.7 kg/m2 03998.7 8 g 56 /min 98.3 [degF] 134 mm[Hg] 88 mm[Hg] [facility] 10:24:59 Date Recorded Body height Body mass index (BMI) Body weight Oxygen saturation Oxygen saturation in Arterial blood by Pulse oximetry Heart rate Systolic blood pressure Diastolic blood pressure Provider Name and Address Organization Details Last Updated DateTime 4 182.88 cm 23.1 kg/m2 07041.7 g 97 % 97 % 55 /min 140 mm[Hg] 90 mm[Hg] FABIÁN HUMPHRIES [facility] 4 15:57:29 Date Recorded Body height Body mass index (BMI) Body weight Oxygen saturation Oxygen saturation in Arterial blood by Pulse oximetry Heart rate Respiratory rate Body temperature Systolic blood pressure Diastolic blood pressure Provider Name and Address Organization Details Last Updated DateTime 3 182.88 cm 22.1 kg/m2 35460.5 6 g 98 % 98 % 74 /min 18 /min 97.3 [degF] 150 mm[Hg] 98 mm[Hg] VAN GOLD [facility] 3 16:05:16 Social History Question Answer Notes LastModified by [employer] Details LastModified Time Tobacco Smoking Status Never Smoker FABIÁN zapien [facility] 07/04/2024 15:52:31 Which Illicit Or Recreational Drugs Have You Used? Marijuana. [email or web address] Information not available 07/04/2024 Sex: Unknown Functional Status Question Answer Note LastModified by [employer] Details LastModified Time Do you use any illicit or recreational drugs? Yes [email or web address] Information not available 07/04/2024 What is your level of alcohol consumption? None [email or web address] Information not available 07/04/2024 Mental Status None recorded. Family History Relationship Description Onset Age of this Age Resolved Age Notes LastModified by Organization Details LastModified Time Father Hypertensive disorder [email or web address] Not available 12/22 10:27:56 Medical History No medical history recorded. Past Encounters Encounter ID Performer Location Encounter Start Date Encounter Closed Date Diagnosis/Indication Diagnosis SNOMED-CT Code Diagnosis ICD10 Code Diagnosis Note [id number] Celso Bobby MD [facility] ([facility]) [address] [place] [phone] 07/13/2023 15:51:11 07/13/2023 18:41:01 Cellulitis 628083354 L03.90 Both lesions are consistent with infection but not improving with Bactrim. We will transition to clindamyci n. Is having significan t pain so we will offer her some pain medication s. Patient was encouraged to follow-up if infections do not improve or significan tly worsen. [id number] Ko Crabtree MD [facility] ([facility]) [address] [place] [address] 07/04/2024 15:39:11 07/05/2024 09:37:59 Uncontrolled type 1 diabetes mellitus 293899512 E10.65 A1c was 8 recently. Essential hypertension 88921459 I10 on multiple meds at this time. [id number] Ko Crabtree MD [facility] ([facility]) [address] [place] [address] 10/07/2024 14:00:22 10/08/2024 15:22:33 Essential hypertension 40354309 I10 on multiple meds at this time. Diabetes mellitus 692758 09 E11.9 End stage renal failure on dialysis 412723352 N18.6 [id number] Ko Crabtree MD [facility] ([facility]) [address] [place] [address] 12/22/2024 10:10:57 12/22/2024 12:25:35 Acute bronchitis 97123474 J20.9 Nausea and vomiting 1693 1999 R11.2 Health Concerns Section Related Observation LastModified by Organization Detai ls LastModified Time None Recorded Concern Status LastModified by Organization Details LastModified Time None Recorded Advance Directives Directive None Recorded Payers Insurance Date Sequence Insurance Name Policy Number Policy Zafar Covered Member ID Zafar Member ID Guarantor Name 07/04/2024 1 *SELF PAY* To bijan Lozano 12/22/2024 1 [place] Kaden Lozano [id number] Kaden Lozano 10/07/2024 1 [place] - [place] [id number] Kaden Lozano [id number] Kaden Lozano 12/22/2024 [facility] [facility] [place] [id number] (MEDICARE) Kaden Lozano [id number] Kaden Lozano 12/22/2024 2 [place]MED[place]LE[place] [id number] Kaden Lozano [id number] Kaden Lozano 12/22/2024 3 [place] Kaden Lozano [id number] Kaden Lozano 12/16/2024 [place]: [facility] Kaden Lozano [id number] Kaden Lozano Notes Date Note Type Note Provider Name and Address Organization Details Recorded Time 07/13/2023 text/html Skin LesionRepor martine bypatient.Location:arm ; finger Quality:painful; drainage; growing gradually Severity:moderate Duration:6 days Timing:abrupt Context:infection Alleviating Factors:none Associated Symptoms:no fever; no cold symptoms; no fatigue;nausea This is a 33-year-old gentleman that comes in today for evaluation of lesions on his left pinky finger and right forearm. He was started on Bactrim but it has not improved but not significantly worsened either. Celso Bobby MD [address] [place] [address], [phone], [facility] 07/13/2023 18:32:10 07/04/2024 text/html DiabetesReported bypatient.Duration:chr onic Control:treated with insulin Compliance:compliant with medications; compliant with follow-up visits Self Care:monitoring glucose 4 times per day (5 times a day.); Sugar stays around 200 Associated Symptoms:no increased thirst; no increased appetite; no increased urination; no numbness of feetHypertension IM/FMReported bypatient.Quality:here for check-up Severity:stage 1 (130-139/80-89 mmHg) Onset/Timing:gradual onset Alleviating Factors:medication Associated Symptoms:no shortness of breath; no palpitations; no headaches; no chest pain;fatigue Risk Factorsdiabetes Currently on Dialysis every other day.Currently sees Dr. Balderrama for dialysis.Has an appt with the boring machine set up operator on 07/08.Currently has a port for his dialysis. He is doing well. Ko Crabtree MD [address] [place] [address], [phone], [facility] 07/04/2024 16:49:17 10/07/2024 text/html DiabetesReported bypatient.Review finger sticks:fastin Compliance:compliant with medications; compliant with follow-up visits; compliant with diet; compliant with home glucose monitoring Self Care:monitoring glucose 3 times per day; seeing eye doctor regularly; checking feet regularly Associated Symptoms:no weight gain; no weight loss; no dizziness; no sweats; no headaches; no confusion; no increased thirst; no increased appetite; no increased urination; no blurred vision; no numbness of feet; no calluses on feet; no fatigue; no blurred vision; no paresthesiasNotes:He is followed by [employer] [facility] for diabetes.Hypertension IM/FMReported bypatient.Quality:here for check-up Alleviating Factors:medication Ko Crabtree MD [address] [place] [address], [phone], [facility] Josh, Robin 10/07/2024 14:46:56 12/22/2024 text/html Sore ThroatRepor martine bypatient.Location:[facility] Duration:started 5 day(s) ago Quality:difficulty swallowing;sharp Severity:no change Context:no recent travel; no tick/insect bites; no new medications; no one else with similar symptoms; no known allergies Alleviating Factors:decongestants Associated Symptoms:no fever;cough;nausea;vom iting Ko Crabtree MD [address] [place] [address], [phone], [facility], Robin 12/22/2024 10:42:45
--- OUTSIDE RECORDS SUMMARY | 2025-03-12 21:58 | XMS_ITS ---
Author Name Nadia, Clinic Address [address] [place] [address] Phone [phone] Organization [facility] e, NA DOCUMENT DISCLAIMER Multiple document versions may exist, please be sure you review the latest version. The information in the [facility] Continuity of Care Document represents a summary of certain health and medical information. It may not contain the complete medical history for the patient and should be independently verified. The represented time in the document is Eastern Time. PROBLEMS Problem Code Status Onset Date Hyperlipidemia, unspecified E78.5 Active January 27, 2025 Atherosclerotic heart diseas e of [place] coronary artery without angina pectoris I25.10 Active January 27 025 Other hyperlipidemia E78.49 Active [facility] 2023 Hypercalcemia E83.52 Active June 26 24 Type 1 diabetes mellitus wit h diabetic chronic kidney disease E10.22 Active April 28, 2024 Other disorders of phosphorus metabolism E83.39 Active February 19, 2024 Fluid overload, unspecified E87.70 Active February 19, 2024 Encounter for immunization Z23 Active M 2023 Encounter for screening for respiratory tuberculosis Z11.1 Active February 15, 2024 Encounter for fitting and ad justment of extracorporeal dialysis catheter Z49.01 Active February 15, 2024 Resistant hypertension I1A.0 Active January 172023 Type 1 diabetes mellitus wit h diabetic chronic kidney disease E10.22 Active February 15, 2024 Shortness of breath R06.02 Active February 15, 2024 Secondary hyperparathyroidism of renal origin N25.81 Active February 15, 2024 Pain, unspecified R52 Active February 14 Nausea R11.0 Active February 15, 2024 Iron deficiency anemia, unspecified D50.9 Activ e February 15, 2024 Hypotension of hemodialysis I95.3 Active February 15, 2024 Hypertensive chronic kidney disease with stage 5 chronic kidney disease or end stage renal disease I12.0 Active February 15, 2024 Fever, unspecified R50.9 Active February 14, 024 Cramp and spasm R25.2 Active February 15, 2024 Coagulation defect, unspecified D68.9 Active February 15, 2024 Chest pain, unspecified R07.9 Active February 15, 2024 Anemia in chronic kidney disease D63.1 Active February 15, 2024 Allergy, unspecified, subsequent encounter T78.40XD Active February 15, 2024 End stage renal disease N18.6 Active February 15, 2024 ALLERGIES AND ADVERSE REACTIONS No Known Allergies SOCIAL HISTORY Tobacco Use Status Tobacco Type Unknown if ever consumed tobacco - 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 Characteristics No Information Available Characteristics of Home environment No Information Available Gender and Sex Information Gender Identity Sexual Orientation Male Heterosexual MEDICATIONS Prescribed Medications for Dialysis Treatments Medication Instructions Dosage Route Start Date End Date Status Heparin Pork 1,000 Units/mL Systemic Self Administer Home Bolus, 4X Week 8000 units Intravenous - push January 29, 2025 January 28, 2026 Active Iron Sucrose (Venofer) Self Administer at Home 3X Week 100 mg Intravenous - push February 19, 2025 February 16, 2026 Active Mircera Every 2 weeks 100 mcg Subcutaneous March 05, 2025 March 04, 2026 Active Mircera Every 2 weeks 75 mcg Subcutaneous February 19, 2025 February 18, 2026 Discontinued Home Medications Medication Instructions Dosage Route Start Date End Date Stat us amlodipine 10 mg by mouth once a day 1 tablet ORAL December 17, 2023 Active carvedilol 25 mg Take by mouth twice a day 1 tablet ORAL September 02, 2024 Active clonidine HCl 0.1 mg Take by mouth every night 1 tablet ORAL February 26, 2025 Active hydralazine 25 mg Take by mouth three times a day as directed 2 tablet ORAL January 27, 2025 Active lisinopril 40 mg Take by mouth every night 1 tablet ORAL April 28, 2024 Active Novolog FlexPen U-100 Insulin 100 unit/mL (3 mL) Inject subcutaneously three times a day with meals SUBCUTANEOUS June 20, 2024 Active omeprazole 20 mg Take by mouth once a day as directed 1 tablet ORAL February 23, 2025 Active Renal Plex D Take by mouth every evening 1 capsule by mouth February 21, 2024 Active rosuvastatin 20 mg Take by mouth 1 tablet ORAL February 23, 2025 Active Semglee(insulin glarg-yfgn)Pen 100 unit/mL (3 mL) Inject subcutaneously every night 22 unit SUBCUTANEOUS January 27, 2025 Active Sevelamer Carbonate Tablet 800 mg Take By Mouth Three times a day With Meals 2 Tablet By Mouth September 19, 2024 September 19, 2025 Active Sevelamer Carbonate Tablet 800 mg Take By Mouth Every 24 hours With Meals 12 Tablet By Mouth December 16, 2024 September 19, 2025 Active Sevelamer Carbonate Tablet 800 mg Take By Mouth Every 24 hours With Meals 12 Tablet By Mouth January 07, 2025 September 19, 2025 Active sodium bicarbonate 650 mg Take by mouth twice a day 1 tablet ORAL April 24, 2024 Active VITAL SIGNS Post-Treatment Vital Signs Vital Sign Value Date / Time Blood Pressure-sitting 153/60 mmHg March 12, 2025 06:08 PM Blood Pressure-standing 124/66 mmHg March 12, 2025 06:08 PM Heart Rate 64 beats per minute March 12 06:08 PM Temperature 98.6 deg. F March 12, 2025 06 :08 PM Weight Vital Sign Value Date / Time Estimated Dry Weight 73.5 kg February 19 11:59 PM Pre-Dialysis 72.9 kg March 12, 2025 06 :08 PM Post-Dialysis 73.3 kg March 12, 2025 06 :08 PM Other Other Value Date / Time Height 185 cm October 20 12:00 AM Body Mass Index 21.48 kg/m2 February 24, 2025 11 :45 AM HEALTH CONCERNS Tuberculosis Testing TST Date Administered TST Date Read TST Result 12/17/2023 12/19/2023 Negative (<5) mm LAB RESULTS Hematology Result Type Result Value Relevant Referen ce Range Interpretation Date Platelets 285 1000/mcL 130 - 400 1000/mcL - Merlin [id number] WBC (No Diff) 14.87 1000/mcL 4.80 - 10.80 1000/mcL High September 22, 2024 Neutrophils 70.7 % 40.0 - 75.0 % - September Ferritin 979 ng/mL 22 - 322 ng/mL High September Transferrin Sat. (Calc) 30 % 20 - 55 % - September 22, 2024 TIBC (Calc) 280 mcg/dL 185 - 515 mcg/dL - September 22, 2024 UIBC/TIBC 197 mcg/dL 155 - 355 mcg/dL - September 22, 2024 Folate, Serum 23.5 ng/mL No Reference Ran ge Provided - September 22, 2024 Neutrophils 66.8 % 40.0 - 75.0 % - October Transferrin Sat. (Calc) 14 % 20 - 55 % Low October 22 TIBC (Calc) 292 mcg/dL 185 - 515 mcg/dL - 2024 UIBC/TIBC 250 mcg/dL 155 - 355 mcg/dL - October 22, 2024 WBC (No Diff) 9.70 1000/mcL 4.80 - 10.80 1000/mcL - October 22, 2024 Platelets 231 1000/mcL 130 - 400 1000/mcL - [id number] TIBC (Calc) 331 mcg/dL 185 - 515 mcg/dL - November UIBC/TIBC 209 mcg/dL 155 - 355 mcg/dL - November Transferrin Sat. (Calc) 37 % 20 - 55 % - November 17, 2024 Platelets 152 1000/mcL 130 - 400 1000/mcL - Cristian h 2024 Neutrophils 64.0 % 40.0 - 75.0 % - November 17, 2024 WBC (No Diff) 8.14 1000/mcL 4.80 - 10.80 1000/mcL - November 17, 2024 Ferritin 655 ng/mL 22 - 322 ng/mL High December 17, 2024 Iron 103 mcg/dL 45 - 160 mcg/dL - December 17, 2024 Transferrin Sat. (Calc) 38 % 20 - 55 % - December 17, 2024 TIBC (Calc) 273 mcg/dL 185 - 515 mcg/dL - December UIBC/TIBC 170 mcg/dL 155 - 355 mcg/dL - December Platelets 186 1000/mcL 130 - 400 1000/mcL - Apri l 2024 Hemoglobin x 3 37.2 % 42.0 - 54.0 % Low December RDW 13.6 % 11.5 - 14.5 % - December 17 Lymphocytes 13.0 % 19.0 - 48.0 % Low December 17, 2024 Neutrophils 75.5 % 40.0 - 75.0 % High December 17, 2024 MCHC 32.7 g/dL 30.0 - 36.0 g/dL - December MCH 29.5 pg 27.0 - 31.0 pg - December 17, 2024 WBC (No Diff) 10.47 1000/mcL 4.80 - 10.80 1000/mcL - December 17, 2024 TERRY 1.4 % 0.0 - 4.0 % - December 17 5 Basophils 1.2 % 0.0 - 1.5 % - December 17 Eosinophil 3.1 % 0.0 - 7.0 % - December 17 Monocytes 5.7 % 3.0 - 10.0 % - December 17 Hemoglobin x 3 35.1 % 42.0 - 54.0 % Low December 162024 Hemoglobin x 3 32.4 % 42.0 - 54.0 % Low January 18, 2025 MCHC 32.4 g/dL 30.0 - 36.0 g/dL - January 18, 2025 RDW 12.6 % 11.5 - 14.5 % - January 18 Platelets 236 1000/mcL 130 - 400 1000/mcL - January 18, 2025 Iron 208 mcg/dL 45 - 160 mcg/dL High January 18 025 Transferrin Sat. (Calc) 70 % 20 - 55 % High January 18, 2025 TIBC (Calc) 297 mcg/dL 185 - 515 mcg/dL - January 18, 2025 UIBC/TIBC 89 mcg/dL 155 - 355 mcg/dL Low January 18, 2025 Neutrophils 55.8 % 40.0 - 75.0 % - January 18 Monocytes 5.8 % 3.0 - 10.0 % - January 18, 2025 Eosinophil 4.1 % 0.0 - 7.0 % - January 18, 2025 Lymphocytes 30.2 % 19.0 - 48.0 % - January 18 WBC (No Diff) 9.12 1000/mcL 4.80 - 10.80 1000/mcL - January 18, 2025 Basophils 1.4 % 0.0 - 1.5 % - January 18, 2025 TERRY 2.7 % 0.0 - 4.0 % - January 18, 2025 MCH 28.5 pg 27.0 - 31.0 pg - January 18 25 Hemoglobin x 3 30.6 % 42.0 - 54.0 % Low February 01, 2025 Monocytes 6.3 % 3.0 - 10.0 % - February 15 Eosinophil 2.6 % 0.0 - 7.0 % - February 15, 2025 Basophils 0.8 % 0.0 - 1.5 % - February 15, 2025 TERRY 2.3 % 0.0 - 4.0 % - February 15, 2025 Neutrophils 63.2 % 40.0 - 75.0 % - February 15, 2 025 Lymphocytes 24.9 % 19.0 - 48.0 % - February 15, 2 025 Transferrin Sat. (Calc) 22 % 20 - 55 % - February 15, 2025 UIBC/TIBC 230 mcg/dL 155 - 355 mcg/dL - February 15, 2025 TIBC (Calc) 293 mcg/dL 185 - 515 mcg/dL - February Iron 63 mcg/dL 45 - 160 mcg/dL - February 15, 2025 HGB 7.6 g/dL 14.0 - 18.0 g/dL Low February 15, 2025 Hemoglobin x 3 22.8 % 42.0 - 54.0 % Low February Platelets 264 1000/mcL 130 - 400 1000/mcL - February 15, 2025 MCH 28.6 pg 27.0 - 31.0 pg - February 15, MCHC 31.9 g/dL 30.0 - 36.0 g/dL - February 15, 2025 RDW 15.3 % 11.5 - 14.5 % High February 15 WBC (No Diff) 9.53 1000/mcL 4.80 - 10.80 1000/mcL - February 15, 2025 RBC 2.66 mill/mcL 4.70 - 6.10 mill/mcL Low February 15, 2025 HCT 23.9 % 42.0 - 52.0 % Low February 15 HGB 7.7 g/dL 14.0 - 18.0 g/dL Low February 18, 2025 Hemoglobin x 3 23.1 % 42.0 - 54.0 % Low February Hemoglobin x 3 24.3 % 42.0 - 54.0 % Low February HGB 8.1 g/dL 14.0 - 18.0 g/dL Low February 23, 2025 Hemoglobin x 3 26.1 % 42.0 - 54.0 % Low February HGB 8.7 g/dL 14.0 - 18.0 g/dL Low March 02, 2025 HGB 9.8 g/dL 14.0 - 18.0 g/dL Low March 11, 2025 Hemoglobin x 3 29.4 % 42.0 - 54.0 % Low February Metabolic/Renal Result Type Result Value Relevant Referen ce Range Interpretation Date Hemoglobin A1c 8.4 % 4.8 - 5.9 % High September URR, Calc 38 % 65 - 80 % Low December 17, 2024 BUN, Post 38 mg/dL 6 - 19 mg/dL High December 17 Urea Nitrogen, Urine, Timed 173 mg/dL No Reference Range Provided - December 17, 2024 Creatinine Clearance, Urine 3.0 mL/min 94.0 - 122.0 mL/min Low December 17 BUN/Creat Ratio 5.0 10.0 - 20.0 Low December Creatinine, Serum 12.29 mg/dL 0.60 - 1.30 mg/dL High December 17, 2024 BUN 61 mg/dL 6 - 19 mg/dL High December 17 Hemoglobin A1c 7.5 % 4.8 - 5.9 % High December 17, 2024 Bicarbonate 24 mEq/L 22 - 29 mEq/L - December 17, 2024 Chloride 100 mEq/L 96 - 108 mEq/L - December 17, 2024 Potassium 5.2 mEq/L 3.5 - 5.1 mEq/L High December 17, 2024 Sodium 137 mEq/L 136 - 145 mEq/L - December 17, 2024 Sodium 136 mEq/L 136 - 145 mEq/L - January 18 BUN/Creat Ratio 4.6 10.0 - 20.0 Low January 18, 2025 Creatinine, Serum 12.41 mg/dL 0.60 - 1.30 mg/dL High January 18, 2025 BUN 57 mg/dL 6 - 19 mg/dL High January 18, 2025 Chloride 98 mEq/L 96 - 108 mEq/L - January 18 Potassium 5.4 mEq/L 3.5 - 5.1 mEq/L High January 18 Bicarbonate 23 mEq/L 22 - 29 mEq/L - January 18 URR, Calc 42 % 65 - 80 % Low January 18, 2025 BUN, Post 33 mg/dL 6 - 19 mg/dL High January 18, 2025 Creatinine, Serum 12.77 mg/dL 0.60 - 1.30 mg/dL High February 15, 2025 BUN 52 mg/dL 6 - 19 mg/dL High February 15 Bicarbonate 22 mEq/L 22 - 29 mEq/L - February 15, 025 Potassium 4.8 mEq/L 3.5 - 5.1 mEq/L - February 15, 2025 Chloride 100 mEq/L 96 - 108 mEq/L - February 15 BUN/Creat Ratio 4.1 10.0 - 20.0 Low February 15, 2025 Sodium 138 mEq/L 136 - 145 mEq/L - February 15, 2025 URR, Calc 35 % 65 - 80 % Low February 15, 2025 BUN, Post 34 mg/dL 6 - 19 mg/dL High February 15 HD Adequacy Result Type Result Value Relevant Referen ce Range Interpretation Date spKt/V Daugirdas II (HHD) 0.49 No Reference Range Provided Normal December 17, 2024 Simple Kt/V (Home HD Only) 0.48 No Reference Range Provided Normal December 17, 2024 wstdKt/V without residual 1.4 No Reference Range Provided - December 17, 2024 wstdKt/V, residual 0.6 No Reference Range Provided - December 17, 2024 wstdKt/V 2.0 No Reference Ran ge Provided - December 17, 2024 wstdKt/V, residual 0.7 No Reference Range Provided - January 18, 2025 wstdKt/V 2.3 No Reference Ran ge Provided - January 18, 2025 Simple Kt/V (Home HD Only) 0.55 No Reference Range Provided Normal January 18, 2025 wstdKt/V without residual 1.6 No Reference Range Provided - January 18, 2025 spKt/V Daugirdas II (HHD) 0.61 No Reference Range Provided Normal January 18, 2025 wstdKt/V without residual 1.4 No Reference Range Provided - February 15, 2025 Simple Kt/V (Home HD Only) 0.43 No Reference Range Provided Normal February 15, 2025 spKt/V Daugirdas II (HHD) 0.49 No Reference Range Provided Normal February 15, 2025 wstdKt/V 2.0 No Reference Ran ge Provided - February 15, 2025 wstdKt/V, residual 0.7 No Reference Range Provided - February 15, 2025 Bone/Mineral Result Type Result Value Relevant Referen ce Range Interpretation Date Magnesium 2.7 mg/dL 1.6 - 2.6 mg/dL High March 17, 2024 Vitamin D 25 Hydroxy 88.6 ng/mL 30.0 - 100.0 ng/mL - May 19, 2024 Magnesium 2.6 mg/dL 1.6 - 2.6 mg/dL - June Vitamin D 25 Hydroxy 63.1 ng/mL 30.0 - 100.0 ng/mL - September 22, 2024 PTH-Intact, Plasma 41 pg/mL 16 - 80 pg/mL - Sep Magnesium 3.1 mg/dL 1.6 - 2.6 mg/dL High September PTH-Intact, Plasma 146 pg/mL 16 - 80 pg/mL High Oct Phosphorus 4.9 mg/dL 2.6 - 4.5 mg/dL High December 17, 2024 Calcium, Total 9.4 mg/dL 8.4 - 10.2 mg/dL - Apr l 2024 Alkaline Phosphatase 52 U/L 40 - 129 U/L - Ap ril 2024 Magnesium 2.9 mg/dL 1.6 - 2.6 mg/dL High December 17, 2024 Corrected Ca x P Product 44 0 - 54 - December 17, 2024 Ca x P Product 46 0 - 54 - December 17, 2024 PTH-Intact, Plasma 134 pg/mL 16 - 80 pg/mL High Dec Ca x P Product 54 0 - 54 - January 04, 20 25 Phosphorus 5.8 mg/dL 2.6 - 4.5 mg/dL High January 18, 2 025 Calcium, Total 9.3 mg/dL 8.4 - 10.2 mg/dL - January 18, 2025 Corrected Ca x P Product 51 0 - 54 - January 18, 2025 Corrected Ca x P Product 52 0 - 54 - February 15, 2025 Phosphorus 6.2 mg/dL 2.6 - 4.5 mg/dL High February 15, 2025 Ca x P Product 53 0 - 54 - February 15, 2 025 Calcium, Total 8.6 mg/dL 8.4 - 10.2 mg/dL - February 15, 2025 Liver/Nutrition Result Type Result Value Relevant Reference Range Interpre tation Date Albumin (BCG) 4.6 g/dL 3.5 - 5.2 g/dL - December Total Protein 7.2 g/dL 6.0 - 8.5 g/dL - December A/G Ratio 1.8 1.0 - 2.0 - December 17, 2024 Globulin (Calc) 2.6 g/dL 2.0 - 4.0 g/dL - December 17, 2024 Glucose 179 mg/dL 70 - 100 mg/dL High December 17, 2024 Albumin (BCG) 4.6 g/dL 3.5 - 5.2 g/dL - January 18, 2025 Total Protein 7.2 g/dL 6.0 - 8.5 g/dL - January 18, 2025 A/G Ratio 1.8 1.0 - 2.0 - January 18, 2025 Globulin (Calc) 2.6 g/dL 2.0 - 4.0 g/dL - January Glucose 190 mg/dL 70 - 100 mg/dL High January 18 Glucose 154 mg/dL 70 - 100 mg/dL High February 15 025 A/G Ratio 1.8 1.0 - 2.0 - February 15, 2025 Globulin (Calc) 2.4 g/dL 2.0 - 4.0 g/dL - February 15, 2025 Total Protein 6.7 g/dL 6.0 - 8.5 g/dL - February Albumin (BCG) 4.3 g/dL 3.5 - 5.2 g/dL - February Lipid Result Type Result Value Relevant Referen ce Range Interpretation Date Cholesterol HDL Ratio 2.8 0.0 - 4.5 - February 01, 2025 LDL, (Calculated) 45 mg/dL 0 - 99 mg/dL - January 152024 Triglycerides 101 mg/dL 0 - 149 mg/dL - February 01, 2025 Cholesterol, Total 101 mg/dL 0 - 199 mg/dL - February 01, 2025 VLDL (Calculated) 20 mg/dL 10 - 30 mg/dL - February 01, 2025 HDL 36 mg/dL No Reference Ran ge Provided - February 01, 2025 Immunochemistry Result Type Result Value Relevant Reference Range Interpre tation Date HCV s/co ratio 0.06 0.00 - 0.79 - March 17, 2024 HCV s/co ratio 0.09 0.00 - 0.79 - September Endocrinology/Thyroid Result Type Result Value Relevant Referen ce Range Interpretation Date TSH 3rd Generation 1.056 mIU/L 0.300 - 3.000 mIU/L - August 04, 2024 Trace Elements Result Type Result Value Relevant Reference Range Interpre tation Date Aluminum 5 mcg/L 0 - 10 mcg/L - March 17 4 Aluminum 7 mcg/L 0 - 10 mcg/L - September 22, 2024 Peritoneal Dialysis Testing Result Type Result Value Relevant Referen ce Range Interpretation Date Total Urea Nitrogen, Urine 3.9 g/24 hr 12.0 - 20.0 g/24 hr Low March 17 4 Urea Clearance, Urine 4.5 mL/min 64.0 - 99.0 mL/min Low March 17, 2024 Creatinine, Urine 70.9 mg/dL No Reference R magui Provided - March 17, 2024 Total Creatinine, Urine 0.9 g/24 hr 0.7 - 1.8 g/24 hr - March 17, 2024 Total Urea Nitrogen, Urine 2.8 g/24 hr 12.0 - 20.0 g/24 hr Low June 23, 2024 Urea Clearance, Urine 3.2 mL/min 64.0 - 99.0 mL/min Low June 23 024 Creatinine, Urine 54.7 mg/dL No Reference R magui Provided - June 23, 2024 Total Creatinine, Urine 0.6 g/24 hr 0.7 - 1.8 g/24 hr Low June 23 24 Total Urea Nitrogen, Urine 2.7 g/24 hr 12.0 - 20.0 g/24 hr Low September 22, 2024 Urea Clearance, Urine 4.3 mL/min 64.0 - 99.0 mL/min Low September 22 025 Creatinine, Urine 46.0 mg/dL No Reference R magui Provided - September 22, 2024 Total Creatinine, Urine 0.7 g/24 hr 0.7 - 1.8 g/24 hr - September 22 25 Total Urea Nitrogen, Urine 1.9 g/24 hr 12.0 - 20.0 g/24 hr Low December 17 25 Urea Clearance, Urine 2.2 mL/min 64.0 - 99.0 mL/min Low December 17 5 Creatinine, Urine 53.6 mg/dL No Reference R magui Provided - December 17, 2024 Total Creatinine, Urine 0.6 g/24 hr 0.7 - 1.8 g/24 hr Low December 17, 2024 Infectious Diseases Result Type Result Value Relevant Referen ce Range Interpretation Date HCV Ab (anti-HCV) Nonreactive No Reference R magui Provided - September 22, 2024 Hep B Surface Ab (anti-HBs) > 1000 mIU/mL No Reference Range Provided - September 22, 2024 Hep B Surface Ag (HBsAg) Negative No Reference Range Provided - September 22, 2024 DIALYSIS PRESCRIPTION NxStage Hemodialysis Data Element Value Order Date/Time February 19, 2025 Frequency 4X Week Treatment Days Demetria Dialyzer/Cartridge CAR 172 Therapy Fluid (dialysate) 1.0 K 45 Lacta te Estimated Treatment Time 150 min Volume per Treatment (Liters) 20 L Dialysate Flow Rate 8 L/hr Maximum Flow Fraction (%) 200% Maximum Ultrafiltration Rate 10 ml/Kg/hr Blood Flow Rate (mL/min) 400 mL/min Estimated Dry Weight 73.5 kg Dialysis Access Hemodialysis-AV [place] t-Synthetic - Standard (PTFE), Left Upper Arm, Brachial Artery to Axillary Vein Access Placed on May 07, 2024 Arterial Needle Size 15g1 Venous Needle Size 15g1 IMMUNIZATIONS Vaccine Date Dose Route Status Flu Vaccine - Flucelvax Trivalent July 07, 2024 0.5 mL Intramuscular Completed PNEUMOVAX February 18, 2024 0.5 mL Intramuscular Comple martine PREVNAR December 24, 2023 0.5 mL Intramuscular Complet ed TRANSPLANT WAITLIST STATUS No Information on Transplant Waitlist Status ADVANCE DIRECTIVES Directive Description Ordered By Effective Date Resuscitation status Full Code Emma Balderrama January DIALYSIS TREATMENTS NxStage-HHD Date Pre-Treatment Vitals Post-Treatment Vitals Durat ion(hr) Exchanges BFR(mL/min) Cartridge Type Dialysate Dialysis Access Meds-entered by patient March 07, 2025 Weight 71.6 kg Weight 71.7 kg 2:25 1 of 7 200 CAR-172 1K 45 La ctate Blood Pressure-sitting 137/70 mmHg Blood Pressure-sitting 12 6/62 mmHg 2 of 7 - Blood Pressure-standing 112/67 mmHg Blood Pressure-standing 83/56 mmHg 3 400 Heart Rate 62 beats per minute Heart Rate 68 beats per minute 4 of 7 400 Temperature 97.8 deg. F Temperature 97.6 deg. F 5 of 7 40 0 - - - - 6 of 7 400 - - - - 7 of 7 400 March 10, 2025 Weight 72.6 kg Weight 72.7 kg 2:25 1 of 9 200 CAR-172 1K 45 Lactate Hemodialysis-AV Graft-Synthetic - Standard (PTFE), Left Upper Arm, Brachial Artery to Axillary Vein Access Placed on May 07, 2024 Heparin 8000 Access Blood Pressure-sitting 141/64 mmHg Blood Pressure-sitting 14 4/65 mmHg 2 of 9 - Blood Pressure-standing 117/55 mmHg Blood Pressure-standing 111/63 mmHg 3 of 9 400 Heart Rate 58 beats per minute Heart Rate 67 beats per minute 4 of 9 400 Temperature 98.4 deg. F Temperature 98.2 deg. F 5 of 9 40 0 - - - - 6 of 400 - - - - 7 of 400 - - - - 8 of 400 - - - - 9 of 9 400 March 12, 2025 Weight 72.9 kg Weight 73.3 kg 2:23 1 of 9 400 CAR-172 1K 45 Lactate Hemodialysis-AV Graft-Synthetic - Standard (PTFE), Left Upper Arm, Brachial Artery to Axillary Vein Access Placed on May 07, 2024 Heparin 8000 Access Blood Pressure-sitting 147/81 mmHg Blood Pressure-sitting 15 3/60 mmHg 2 of 9 400 Blood Pressure-standing 124/45 mmHg Blood Pressure-standing 124/66 mmHg 3 of 9 400 Heart Rate 52 beats per minute Heart Rate 64 beats per minute 4 of 9 400 Temperature 98.5 deg. F Temperature 98.6 deg. F 5 of 9 40 0 - - - - 6 of 9 400 - - - - 7 of 9 400 - - - - 8 of 9 400 - - - - 9 of 9 400
--- OUTSIDE RECORDS SUMMARY | 2025-03-12 21:58 | XMS_ITS | Clinical Summary ---
Author Organization [facility] Address [address] [place]: Epic Prelude ADT [place] [address] Care Team Providers Care Sheep Shearer Name Role Phone Dalila Boudreaux NP Primary Care Provider [phone] Allergies No known active allergies Medications flash glucose scanning reader Misc UD. 1 Each 0 11/12/19 Active flash glucose sensor Kit UD. 2 Kit 11 11/12/19 19 Active hydrALAZINE (APRESOLINE) 20 mg/mL Solution Q6H 12/12/19 24 Active carvediloL (COREG) 25 mg tablet Take 1 Tablet by mouth 2 times daily. 03/10/20 24 Active lisinopriL (PRINIVIL) 20 mg tablet Take 1 Tablet by mouth 2 times daily. 12/17/19 24 Active amLODIPine (NORVASC) 10 mg tablet Take 10 mg by mouth daily. Active RenaPlex-D 800 mcg-12.5 mg -2,000 unit Tablet TAKE 1 TABLET BY MOUTH EVERY DAY IN THE EVENING 05/21/20 24 Active cloNIDine HCL (CATAPRES) 0.1 mg tablet Take 0.1 mg by mouth 2 times daily. Active metoprolol tartrate (LOPRESSOR) 25 mg tablet Take 1 Tablet by mouth 2 times daily. 07/24/20 24 Active sodium bicarbonate 650 mg tablet Take 650 mg by mouth 2 times daily. Active lancets Use to check blood glucose 4 times a day 300 Each 3 07/28/20 24 Active Acetone, Urine, Test (Ketostix) Strip Check for ketones if glucoses persistently >240 associated with nausea and vomiting. If moderate, drink water and take correction doses until ketones resolved. If large, go to ER 100 Strip 1 07/28/20 Active Blood-Glucose Sensor (Dexcom G7 Sensor) Device Replace every 10 days. 9 Each 3 07/28/20 24 Active insulin aspart, niacinamide, (Fiasp FlexTouch U-100 Insulin) 100 unit/mL (3 mL) Insulin Pen Inject 5 Units by subcutaneous injection 3 times daily with meals. Max daily dose 15 units 15 mL 2 07/28/20 Active Blood-Glucose Meter (FreeStyle Lite Meter) Kit CHECK BEFORE MEALS AND AT BEDTIME ADVISED. E10.65. 1 Each 07/29/20 24 Active blood sugar diagnostic (Blood Glucose Test) Strip Check before meals and at bedtime as advised-4 times a day. Also consider checking before exercise, with symptoms of low sugar, before and during performance of critical tasks such as driving. E10.65 300 Each 3 08/11/20 24 Active glucagon (Gvoke HypoPen 2-Pack) 1 mg/0.2 mL Auto-Injector Inject 1 mg by subcutaneous injection one time as needed for Other (See Comment) (hypoglycemia). 0.2 mL 1 09/11/20 24 Active insulin glargine (Basaglar KwikPen U-100 Insulin) 100 unit/mL pen syringeIndication s:Type 1 diabetes mellitus with hyperglycemia ([facility]) Inject 22 Units by subcutaneous injection daily at bedtime. 15 mL 4 02/11/20 Active Active Problems Problem Noted Date Diagnosed Date Hypertension, uncontrolled 08/06/2024 Type 1 diabetes mellitus with ketoacidosis and w ithout coma 08/06/2024 Diabetic ketoacidosis withou t coma associated with type 1 diabetes mellitus 08/06/2024 Chronic renal failure, stage 4 (severe) 04/26/20 End stage renal disease 02/15/2024 Type 1 diabetes mellitus with hyperglycemia 10/19 Encounters Date Type Department Care Team Description 03/03/2025 External Device Data [facility] ABSTRACTION Provider, Abstract 03/03/2025 External Device Data [facility]STRACTION Provider, Abstract 02/17/2025 External Device Data [facility]STRACTION Provider, Abstract 02/10/2025 External Device Data [facility]STRACTION Provider, Abstract 02/10/2025 Orders Only [facility] [address] [address] Kajal Vargas Type 1 diabetes mellitus with hyperglycemia (CMS/HCC) (Primary Dx) 02/06/2025 1:10 PM CDT Office Visit [facility] [address] [address] Katty Garcias PA Type 1 diabetes mellitus with hyperglycemia (CMS/HCC) (Primary Dx); End stage renal disease (CMS/HCC); Hypoglycemia, unspecified 01/20/2025 External Device Data [facility] ABSTRACTION Provider, Abstract 01/20/2025 External Device Data [facility] ABSTRACTION Provider, Abstract 01/20/2025 External Device Data [facility] ABSTRACTION Provider, Abstract 12/30/2024 External Device Data [facility] ABSTRACTION Provider, Abstract from Last 3 Months Immunizations Immunization Administration Dates Next Due (PNEUMOVAX 23)(50 YRS UP) PN EUMOCOCCAL POLYSACCHARIDE (PPV23) 0.5 ML, IM 02/18/2024 (PREVNAR 20)(6 WKS UP) PNEUM OCOCCAL CONJUGATE VACCINE 20-VALENT (PCV20), POLYSACCHARIDE [id number] CONJUGATE, ADJUVANT 0.5 ML (PF) IM 12/24/2023 Influenza Vaccine 18+ C.derived Pf Im 07/07/2024 Family History Medical History Relation Name Comments High Cholesterol Father Hypertension Father High Cholesterol Mother Relation Name Status Comments Father Mother Social History Tobacco Use Types Packs/Day Years Used Date Smoking Tobacco: Former Smokeless Tobacco: Never Tobacco Cessation:Counseling Given: Not Answered Alcohol Use Standard Drinks/Week Comments Not Currently 0 (1 standard drink = 0.6 oz pur e alcohol) Feeling Safe Answer Date Recorded Are you in a relationship wi th someone who hurts you emotionally and/or physically? No 08/06/2024 Food Insecurity Answer Date Recorded Patient needs follow up regardin 01/18/2025 Transportation Needs Answer Date Record ed Patient needs follow up regardin 01/18/2025 Housing Stability Answer Date Recorded Social/Environmental Concerns No concerns Utility Needs Answer Date Recorded Patient needs follow up regardin 01/18/2025 Sex and Gender Information Value Date Recorded Sex Assigned at Not on file Legal Sex Male 10:54 PM ANIMAL RIDE ATTENDANT Gender Identity Not on file Sexual Orientation Not on file Last Filed Vital Signs Vital Sign Reading Time Taken Comments Blood Pressure 122/76 02/06/2025 1:12 PM CDT Pulse 57 02/06/2025 1:12 PM CDT Temperature 36.1 C (97 F) 11/05/2024 10:55 AM ANIMAL RIDE ATTENDANT Respiratory Rate 16 11/05/2024 10:55 AM ANIMAL RIDE ATTENDANT Oxygen Saturation 99% 02/06/2025 1:12 PM CDT Inhaled Oxygen Concentration - - Weight 75.3 kg (166 lb) 02/06/2025 1:12 PM CDT Height 180.3 cm (5' 11 ) 02/06/2025 1:12 PM CDT Body Mass Index 23.15 02/06/2025 1:12 PM CDT Plan of Treatment Upcoming Encounters Date Type Department Care Team (Late st Contact Info) Description 05/22/2025 12:50 PM CDT Office Visit [facility] [address] [place] [address] Katty Garcias PA [address] [place] [address] Health Maintenance Due Date Last Done Comments DTAP/TDAP/TD VACCINES (6 - Tdap) 2001 06/13/1994, 01/13/1993, 01/20/1992, Additional history exists DIABETES ANNUAL FOOT EXAM 2008 DIABETES ANNUAL RETINAL EXAM 2008 DIABETES MICROALBUMIN ANNUAL SCREEN 2008 LDL CHOLESTEROL ANNUAL 2008 HEPATITIS B VACCINES (1 of 3 - 19+ 3-dose series) 2009 DIABETES HBA1C Q 6 MONTHS 07/14/20252024, 08/06/2024, 04/13/2019, Additional history exists INFLUENZA VACCINE Completed 07/07/2024 Abdominal Aortic Aneurysm (AAA) Screening Completed 08/06/2024, 11/10/2017 HPV VACCINES Aged Out No longer eligi ble based on patient's age to complete this topic Medical Devices Implanted Type Area Certified Alcohol Counselor Device Identifier Shelf Expiration Date Model / Serial / Lot Clip Ligating Horizon Sm Ti [id number] - Csc - [id number] Implanted:Qty : 2 on 05/07/2024 by Harjit Jack MD at [facility] Clip Left: Arm [employer] 02/23/2029 [id number] / / [id number] Clip Ligating Horizon Med Ti [id number] - Csc - [id number] Implanted:Qty : 1 on 05/07/2024 by Harjit Jack MD at [facility] Clip Left: Arm TELE[employer]LEX- WECK CLOSURE SYS 10/01/2028 [id number] / / [id number] Graft Advanta Vxt Sw [id number] - [id number] Implanted:Qty : 1 on 05/07/2024 by Harjit Jack MD at [facility] Graft Left: Arm [employer] [id number] 02/07/2027 [id number] / [id number] / Procedures Procedure Name Priority Date/Time Associated Diagnosis Comments CT ABDOMEN PELVIS WO CONTRAST Stat 08/06/2024 6:28 PM ANIMAL RIDE ATTENDANT HEMOGLOBIN A1C Stat 08/06/2024 3:42 PM ANIMAL RIDE ATTENDANT from Last 3 Months or Most Recently Relevant to Health Maintenance Results * CT ABDOMEN PELVIS WO CONTRAST (08/06/2024 6:28 PM ANIMAL RIDE ATTENDANT) Anatomical Region Laterality Modality Abdomen Computed Tomogra phy 08/06/2024 6:28 PM ANIMAL RIDE ATTENDANT Impressions 08/06/2024 7:26 PM ANIMAL RIDE ATTENDANT IMPRESSION: Please see below. Exam: CT ABDOMEN PELVIS WO CONTRAST Date/Time of Exam: 08/06/2024 6:28 PM REASON FOR EXAM: Sepsis. DIAGNOSIS: Diabetic ketoacidosis without coma associated with type 1 diabetes mellitus. Technique: CT of the abdomen and pelvis was performed without the administration of intravenous contrast. Findings: ABDOMEN: Lung bases are clear. There is decreased attenuation of liver consistent with hepatic steatosis. Liver is enlarged measuring 21 cm in craniocaudal dimension. The gallbladder and biliary tree are unremarkable for noncontrast technique. There is some focal fatty infiltration of the liver adjacent to the falciform ligament. The spleen, adrenal glands, and pancreas are unremarkable for noncontrast technique. The stomach, small bowel loops, and colon are grossly unremarkable allowing for limitations of noncontrast technique. The appendix is not identified and may be surgically absent. There are some mildly enlarged retroperitoneal lymph nodes measuring up to 1.3 cm in diameter. The kidneys and ureters are grossly unremarkable. There are scattered atherosclerotic changes which are incompletely evaluated due to noncontrast technique. The imaged lower lumbar spine is grossly unremarkable. Pelvis: There is no free fluid in the pelvis. The bladder and prostate are unremarkable. There is no pathologic inguinal or pelvic adenopathy. The bony pelvis is intact. IMPRESSION: 1. Nonspecific mildly enlarged left retroperitoneal periaortic lymph nodes measuring up to 1.3 cm. These could be reactive however, if there is clinical concern for lymphoproliferative disorder, follow-up imaging is recommended. 2. Hepatomegaly and hepatic steatosis. 3. Additional incidental findings, allowing for limitations of noncontrast technique. Narrative Procedure Note Santo Cardozo MD - 08/06/2024 IMPRESSION: Please see below. Exam: CT ABDOMEN PELVIS WO CONTRAST Date/Time of Exam: 08/06/2024 6:28 PM REASON FOR EXAM: Sepsis. DIAGNOSIS: Diabetic ketoacidosis without coma associated with type 1 diabetes mellitus. Technique: CT of the abdomen and pelvis was performed without the administration of intravenous contrast. Findings: ABDOMEN: Lung bases are clear. There is decreased attenuation of liver consistent with hepatic steatosis. Liver is enlarged measuring 21 cm in craniocaudal dimension. The gallbladder and biliary tree are unremarkable for noncontrast technique. There is some focal fatty infiltration of the liver adjacent to the falciform ligament. The spleen, adrenal glands, and pancreas are unremarkable for noncontrast technique. The stomach, small bowel loops, and colon are grossly unremarkable allowing for limitations of noncontrast technique. The appendix is not identified and may be surgically absent. There are some mildly enlarged retroperitoneal lymph nodes measuring up to 1.3 cm in diameter. The kidneys and ureters are grossly unremarkable. There are scattered atherosclerotic changes which are incompletely evaluated due to noncontrast technique. The imaged lower lumbar spine is grossly unremarkable. Pelvis: There is no free fluid in the pelvis. The bladder and prostate are unremarkable. There is no pathologic inguinal or pelvic adenopathy. The bony pelvis is intact. IMPRESSION: 1. Nonspecific mildly enlarged left retroperitoneal periaortic lymph nodes measuring up to 1.3 cm. These could be reactive however, if there is clinical concern for lymphoproliferative disorder, follow-up imaging is recommended. 2. Hepatomegaly and hepatic steatosis. 3. Additional incidental findings, allowing for limitations of noncontrast technique. Bam Rincon MD CT ORDERABLES Final Result * (ABNORMAL) HEMOGLOBIN A1C (08/06/2024 3:42 PM ANIMAL RIDE ATTENDANT) HEMOGLOBIN A1C 8.7(H) <=5.6 % 08/08/2024 8:16 AM ANIMAL RIDE ATTENDANT [facility] [employer] [facility] EST. AVG GLUCOSE, A1C 203 mg/dL 08/08/2024 8:16 AM ANIMAL RIDE ATTENDANT [facility] [employer] [facility] Blood Venipuncture / Unknown 08/06/2024 3:42 PM ANIMAL RIDE ATTENDANT 08/06/2024 3:59 PM ANIMAL RIDE ATTENDANT Narrative [facility] [employer] [facility] - 08/08/2024 8:16 AM ANIMAL RIDE ATTENDANT HGB A1C INTERPRETATION NORMAL: <5.7% PRE-DIABETES: 5.7 - 6.4% DIABETES: 6.5% OR GREATER Bam Rincon MD CHEMISTRY ORDERABLES Final Resul t Performing Organization Address City/State/[facility] Co de Phone Number [facility] CLIA # [id number] [facility] [address] from Last 3 Months or Most Recently Relevant to Health Maintenance Insurance [place] MED[place]ARE PART A AND B BCBS SUPP RX INFOCROSSING Medicaid RX [employer] PLANS (INTERNAL) [facility] Internal Plans Advance Directives For more information, please contact: [phone] * Full Code (Latest Code Status on File) Date Activated Date Inactivated Comments 08/06/2024 5:43 PM 08/08/2024 12:27 PM * Full Code Date Activated Date Inactivated Comments 05/07/2024 10:28 AM 05/07/2024 5:05 PM Care Teams Sheep Shearer Relationship Specialty Start Date End Date Dalila Boudreaux NP [facility] [place] [address] PCP - General NURSE PRACTITIONER 11/12/18
[2025-03-12 22:31] VITALS: BP 172/88; PULSE 60; RESP 14; O2SAT 96
[2025-03-12 22:54] VITALS: BP 172/88; PULSE 61; RESP 14; O2SAT 96
--- NOTE | 2025-03-13 18:52 | W.ED.WOUNDLC ---
HPI - Wound/Laceration General: Chief Complaint: Wound/Laceration Stated Complaint: dialisis pt. delicia quit bleeding Time Seen by Provider: 03/12/25 22:18 History of Present Illness: Patient with a history of kidney failure diagnosed in November 2023, currently on home hemodialysis since approximately February 2024, presents with ongoing bleeding from the fistula site following completion of dialysis this evening. The patient reports that the bleeding started after coming off the machine at 9 PM and has been holding pressure since then. This is the first episode of such bleeding; no prior similar events. The patient denies redness, infection, or warmth at the site and has not experienced fevers. No pressure errors or backflow issues were noted during dialysis. The patient has a small bump at the fistula site that has not changed or become infected. The patient denies any squirting of blood around the pressure site and has been applying more than five pounds of pressure to control the bleeding. No other acute symptoms reported. Related Data Home Medications ?Medication ?Instructions ?Recorded ?Confirmed amlodipine 10 mg tablet 10 mg PO DAILY 07/08/24 03/11/25 famotidine 20 mg tablet 20 mg PO DAILY PRN Acid Reflux 07/08/24 03/11/25 hydralazine 25 mg tablet 25 mg PO QID 07/08/24 03/11/25 metoprolol tartrate 25 mg tablet 25 mg PO BID 07/08/24 03/11/25 calcitriol 0.5 mcg capsule 0.5 mcg PO DAILY 09/11/24 03/11/25 carvedilol 25 mg tablet 25 mg PO BID 09/11/24 03/11/25 clonidine HCl 0.1 mg tablet 0.1 mg PO BID 09/11/24 03/11/25 ergocalciferol (vitamin D2) 1,250 1,250 mcg PO Q7D 09/11/24 03/11/25 mcg (50,000 unit) capsule (Vitamin D2) gentamicin 0.1 % topical cream See Rx Instructions .Route .COMPLEX 09/11/24 03/11/25 glucagon 3 mg/actuation nasal 3 mg intranasal PRN PRN low bs 09/11/24 03/11/25 spray (Baqsimi) insulin aspart 5 unit SUBCUT TID 09/11/24 03/11/25 (niacinamide)(U-100) 100 unit/mL(3 mL) subcutaneous pen (Fiasp FlexTouch U-100 Insulin) insulin glargine-yfgn 100 unit/mL 22 unit SUBCUT BEDTIME 09/11/24 03/11/25 (3 mL) subcutaneous pen (Semglee (insulin glargine-yfgn) Pen) lidocaine-prilocaine 2.5 %-2.5 % See Rx Instructions .Route .COMPLEX 09/11/24 03/11/25 topical cream lisinopril 20 mg tablet 20 mg PO BID 09/11/24 03/11/25 sevelamer carbonate 800 mg tablet 800 mg PO QID 09/11/24 03/11/25 sodium bicarbonate 650 mg tablet 650 mg PO BID 09/11/24 03/11/25 vit B,C-folic ac 800 mcg-zinc 12.5 1 tab PO QPM 09/11/24 03/11/25 mg-selen-D3 2,000 unit-vit E tablet (RenaPlex-D) Previous Rx's ?Medication ?Instructions ?Recorded glucometer testing kit #1 ea 12/12/23 Diabetic shoes #1 ea 07/08/24 ondansetron HCl 4 mg tablet 4 mg PO Q8H PRN nausea and 08/06/24 vomiting #14 tabs Allergies Allergy/AdvReac Type Severity Reaction Status Date / Time No Known Allergies Allergy Verified 03/11/25 13:58 PFSH ED PFSH: Medical History Type 1 diabetes Social History Smoking and tobacco/nicotine status: former use of tobacco/nicotine Substance/Drug Use: current Substance/Drug use frequency: few times a week Physical Exam Const: COMMON NORMALS: no acute distress, patient oriented x3 and alert HENMT: COMMON NORMALS: normocephalic and atraumatic HEAD & SCALP: normocephalic and atraumatic Eye: COMMON NORMALS: Equal, round and reactive pupils present, EOMs intact bilaterally and no scleral icterus PUPIL: Yes Equal, round and reactive pupils present Resp: COMMON NORMALS: normal respiratory effort and No retractions Cardio: COMMON NORMALS: regular rate, regular rhythm and No murmurs present (Cardio) RATE: regular rate RHYTHM: regular rhythm GI: COMMON NORMALS: Normal to inspection, nondistended, normoactive bowel sounds present, Soft to palpation and non-tender PALPATION: Yes Soft to palpation Extremity: OTHER: Left upper extremity AV fistula which has a gentle wrap on it. with dressing removed, there is no active bleeding. No warmth, no erythema, no evidence of abscess. Strong thrill and bruit. Neuro: COMMON NORMALS: patient oriented x3 SENSORIUM/ORIENTATION: Yes alert Skin: COMMON NORMALS: no rashes or lesions noted GENERAL SKIN EXAM: no rashes or lesions noted Course Vital Signs: Vital signs: Vital Signs Temperature 98.2 F 03/12/25 21:53 Pulse Rate 61 03/12/25 22:54 Respiratory Rate 14 03/12/25 22:54 Blood Pressure 172/88 03/12/25 22:54 Pulse Oximetry 96 03/12/25 22:54 Oxygen Delivery Me thod Room Air 03/12/25 22:31 MDM - Wound/Laceration Medical Decision Making Fortunately, by the time patient was evaluated in the emergency department, bleeding has stopped. We discussed that in the future it is safe to place roughly 5 pounds of pressure on such a bleed and that doing so for several hours should stop the bleeding. He knows that he is always welcome back in emergency department if needed. We discussed the various signs and symptoms of AV fistula problems and troubleshooting and he shows good understanding and agrees to the plan. No radiology studies performed this visit Discharge Plan Discharge Patient Disposition: Home Clinical Impression: Hemorrhage from arteriovenous dialysis graft Condition: Stable Prescriptions: No Action hydralazine 25 mg tablet 25 mg PO QID metoprolol tartrate 25 mg tablet 25 mg PO BID amlodipine 10 mg tablet 10 mg PO DAILY famotidine 20 mg tablet 20 mg PO DAILY PRN (Reason: Acid Reflux) (DME) Diabetic shoes See Rx Instructions .Route .MEDSUPPLY Qty: 1 0RF Rx Instructions: 3 pairs of inserts DME is (HOME) (DME) glucometer testing kit See Rx Instructions .Route .MEDSUPPLY Qty: 1 0RF Rx Instructions: Glucometer testing kit Lancets #100, strips #100 lisinopril 20 mg tablet 20 mg PO BID carvedilol 25 mg tablet 25 mg PO BID clonidine HCl 0.1 mg tablet 0.1 mg PO BID lidocaine-prilocaine 2.5-2.5 % cream See Rx Instructions .ROUTE .COMPLEX Rx Instructions: APPLY SMALL AMOUNT TO ACCESS SITE (AVF) 1 TO 2 HOURS BEFORE DIALYSIS. COVER WITH OCCLUSIVE DRESSING (SARAN WRAP). sodium bicarbonate 650 mg tablet 650 mg PO BID calcitriol 0.5 mcg capsule 0.5 mcg PO DAILY gentamicin 0.1 % cream See Rx Instructions .ROUTE .COMPLEX Rx Instructions: 1 applic topically to exit site every treatment. ergocalciferol (vitamin D2) [Vitamin D2] 1,250 mcg (50,000 unit) capsule 1,250 mcg PO Q7D sevelamer carbonate 800 mg tablet 800 mg PO QID Fiasp FlexTouch U-100 Insulin 100 unit/mL (3 mL) insulin pen 5 unit SUBCUT TID MDD 15 units RenaPlex-D 800 mcg-12.5 mg -2,000 unit tablet 1 tab PO QPM Baqsimi 3 mg/actuation spray,non-aerosol 3 mg INTRANASAL PRN PRN (Reason: low bs) insulin glargine-yfgn [Semglee(insulin glarg-yfgn)Pen] 100 unit/mL (3 mL) insulin pen 22 unit SUBCUT BEDTIME ondansetron HCl 4 mg tablet 4 mg PO Q8H PRN (Reason: nausea and vomiting) Qty: 14 0RF Discharge Orders: Discharge ED (Routine); Ordered 03/12/25 Ordered By: Nir Balderrama Referrals: Ko Crabtree MD [Primary Care Provider, Family Practice] Patient Instructions: Patient Portal & Navya Instructions Activity Restrictions/Additional Instructions: If future bleeding occurs, remember that it usually only takes 5 pounds of pressure to stop it. Excessive pressure can cause damage to your arteriovenous fistula. If you get lots of areas on your dialysis machine or frequent bleeding, I would advise that you see your pneumatic tube fitter as soon as possible to make sure you do not need a revision of your fistula. There is no indication of infection at this time causing the bleed. If symptoms get worse you are always welcome back in the emergency department. Print Language: Uzbek Coding Level of Care Code ED Courtesy Booth Cashier for Joaquin Jones
== END 2025-03-12 22:55 | disposition home or self-care (01) ==
PROVIDERS: Emergency Provider Student in an Organized Health Care Education/Training Program; PCP Family Medicine
DX: T82.838A Hemorrhage due to vascular prosthetic devices, implants and grafts, initial encounter (principal); X58.XXXA Exposure to other specified factors, initial encounter; Z79.4 Long term (current) use of insulin; Z87.891 Personal history of nicotine dependence; E10.9 Type 1 diabetes mellitus without complications; N19 Unspecified kidney failure; Z99.2 Dependence on renal dialysis
CPT/HCPCS: 99282